=== PATIENT | female | born 1985 | race Caucasian/White ===

== ENCOUNTER 2020-05-19 14:54 | Emergency (ER) | payer SELFPAY ==
[2020-05-19 14:55] VITALS: BP 146/82; PULSE 85; RESP 16; TEMP 37; O2SAT 100; BMI 29.7
--- NOTE | 2020-05-19 15:14 | EKG12_ITS ---
Test Reason : CP Blood Pressure : / mmHG Vent. Rate : 078 BPM Atrial Rate : 078 BPM P-R Int : 164 ms QRS Dur : 082 ms QT Int : 366 ms P-R-T Axes : -04 029 019 degrees QTc Int : 417 ms Normal sinus rhythm Low voltage QRS Borderline ECG Confirmed by MARISOL DONOVAN, JUDE ([id number]), editor map MAGY LOPEZ ([id number]) on 05/20/2020 2:05:37 PM Referred By: BRY Confirmed By:JUDE DAMON MD
--- NOTE | 2020-05-19 15:14 | ED.VIS.CHEST ---
History of Present Illness Chief Complaint: Chest Pain Informant: Patient Onset: Yesterday Timing: Intermittent Quality: Sharp, Stabbing Location: Substernal Worsened By: Nothing Relieved By: Nothing Associated Symptoms: Palpitations, - - sweating, feeling hot Narrative: Is a 34-year-old female that denies any past medical history presenting with chest pain. Patient states about 30 minutes prior to arrival she was sitting in her house when suddenly she felt that her heart was fluttering and had associated chest pain. She states it felt there was a hot knife that was going to her sternum and rating to her back. She states the episode lasted for about 10 to 15 minutes but the fluttering only lasted for 1 to 2 minutes. Is symptoms have completely resolved. She noticed when this was going on she felt hot and her palms were sweating and she did not feel right. She states that she started a little bit of short of breath yesterday and just feels like she cannot get out full breath. She denies any associated cough or fever. She denies any upper respiratory symptoms. States she had a mild similar episode last night but it was not as severe. Patient states she had anxiety attacks in the past but this feels different. She denies any asymmetric swelling of her legs. She is not on any estrogen supplements or control. She denies any history of DVT or PE. She denies any sick contacts. She denies any GI or symptoms. No other complaints at this time. Prior Similar Symptoms: No PE Risk Factors: Negative for: Recent Travel/Surgery, Recenet Immobilization, Prior DVT or PE, Cancer, OCP + Smoking + >/=35 Past Medical History - Allergies and Home Meds Allergies/Adverse Reactions: Allergies cod liver oil [From Desitin] Adverse Reaction (Verified 05/19/20 14:58) Swelling morphine Adverse Reaction (Verified 05/19/20 14:58) Rash zinc oxide [From Desitin] Adverse Reaction (Verified 05/19/20 14:58) Swelling DESITIN Allergy (Severe, Uncoded 05/19/20 14:58) Swelling Primary Care Physician: Jose Daniel Rodriguez MD [[facility]] - Past Medical History: None Surgical History: no surgical history Smoking Status: Current every day smoker Review of Systems General: Reports: Sweats. Denies: Chills, Fever Eyes: Denies: Visual changes - bilaterally, Diplopia ENT: Denies: Rhinorrhea, Sore throat Cardiovascular: Reports: Chest pain, Palpitations, Heart racing Respiratory: Reports: Dyspnea. Denies: Cough, Dyspnea on exertion Gastrointestinal: Denies: Abdominal pain, Nausea, Vomiting, Diarrhea, Melena, Hematochezia Genitourinary: Denies: Dysuria, Hematuria, Frequency Musculoskeletal: Reports: Back pain. Denies: Extremity Pain Skin: Denies: Rash, Wounds Neurological: Denies: Headache, Weakness, Numbness Psych: Reports: Anxiety. Denies: Depression Physical Exam Vital Signs/Narrative: Vital Signs Temp Pulse Resp BP Pulse Ox 05/19/20 14:55 98.6 F 85 16 146/82 H 100 Inital Vital Signs reviewed: Yes General: Well nourished, Well developed, No Acute Distress Head: Normocephalic, Atraumatic Eyes: Perrl, EOMI ENT: Moist mucous membranes, No rhinorrhea Neck: Supple, Nontender Cardiovascular: Regular rate, Regular rhythm, No murmurs Respiratory: No distress, CTA bilaterally, Chest nontender Abdomen: Soft, Nontender, Nondistended, Normal bowel sounds Back: Nontender, Normal Inspection Extremities: Nontender, No edema Skin: Normal color, No rash Neurological: Alert, Oriented x3, Cranial nerves II-XII grossly intact, Normal Strength, Normal Sensation Psychological: Normal affect, Normal Mood Diagnostic/Tx/Re-eval Chest X-Ray - ED: 2 View, Read by ED Physician, Read by Radiologist, No Acute Disease Clinical Impression(s) from Imaging Studies Chest X-Ray 05/19/20 15:50 IMPRESSION: Normal x-ray examination of the chest. Electronically Signed: Isaac Anderson MD ([facility]) at 16:04 EST , Service support , Laboratory Data 05/19/20 05/19/20 05/19/20 16:30 16:30 17:15 WBC 7.0 RBC 4.60 Hgb 9.6 L Hct 32.6 L MCV 70.9 L MCH 20.9 L MCHC 29.4 L RDW Std Deviation 41.0 RDW Coeff of Rosa 16.1 H Plt Count 246 MPV 11.7 Immature Gran % (Auto) 0.300 Neut % (Auto) 64.3 Lymph % (Auto) 27.3 [place] % (Auto) 6.5 Eos % (Auto) 1.0 Baso % (Auto) 0.6 Absolute Neuts (auto) 4.5 Absolute Lymphs (auto) 1.92 Nucleated RBC % 0 Sodium 142 Potassium 3.7 Chloride 111 H Carbon Dioxide 25.0 Anion Gap 6 BUN 9 Creatinine 0.98 Estim Creat Clear Calc 93.34 Est GFR (MDRD) Af Amer 84 Est GFR (MDRD) Non-Af 69 BUN/Creatinine Ratio 9.2 L Glucose 79 Calcium 8.6 Magnesium 2.3 Troponin I < 0.015 TSH 1.74 Serum , Qual NEGATIVE - Rhythm Strip Rhythm Strip: Sinus Rhythm Rate: 78 Ectopy: None - EKG Initial EKG Interpretation: Sinus Rhythm, - - Normal sinus rhythm at a rate of 78 Normal intervals Normal axis Nonspecific T wave inversion in lead III - Medical Decision Making Patient evaluated for sudden onset of chest pain. She appears nontoxic in no acute distress. She is hemodynamically stable. Vital signs are normal. Patient is low risk for PE and I do not think D-dimer or further imaging is indicated per PE RC criteria. EKG does not show ACS and her troponin is negative. Given her sudden onset of symptoms I did offer delta troponin but patient states she needs to leave and does not want to stay. I have a low suspicion for ACS. I do wonder this is more associated with anxiety as she states she does have a history of anxiety. Chest x-rays not show any acute cardiopulmonary process. Lab work is remarkable for anemia however patient states she has known history of anemia. It is a microcytic anemia and she is given a prescription for iron supplements. TSH is normal. Patient not having signs of arrhythmia on her EKG or telemetry. She is currently asymptomatic and states has been feeling well since has been in the ER. Is low risk per heart score and stable for outpatient cardiac evaluation. She is referred to her primary care doctor as she does not currently have 1. Patient is counseled on signs and symptoms requiring return to the emergency room. Patient verbalizes agreement and understand this plan. Patient discharged home in stable and improved condition. ED Disposition - Plan for ED Patient: Disposition: Home or Assisted Living Diagnosis: Chest pain, Anemia Instructions: ED Anemia Type Not Specified, ED Chest Pain NonCardiac Prescriptions: Ferrous Sulfate [Iron] 325 mg PO BID #60 tab Prescription Printed Referrals: Jose Daniel Rodriguez MD [[facility]] - Additional Instructions: Your heart work-up was normal. You were found to be anemic. I am not sure why. I will start you on an iron supplements and please follow-up with primary care doctor for further evaluation of this. Please return if you have worsening symptoms.
--- NOTE | 2020-05-19 15:20 | NURSING ---
NO OLD EKGS
--- NOTE | 2020-05-19 15:50 | RAD_ITS ---
STUDY: X-RAY CHEST REASON FOR EXAM: Female, 34 years old. STERNAL CHEST PAIN . WORSENS WITH DEEP BREATH AND MOVEMENT TECHNIQUE: PA and lateral views of the chest. COMPARISON: None. FINDINGS: EKG leads project over the chest. The lungs are clear and expanded. There is no demonstrated pleural abnormality. Normal size heart. Normal mediastinum and reuben. Normal visualized pulmonary arteries. Normal visualized aortic arch and descending thoracic aorta. There is a dextroscoliosis of the thoracic spine. Normal visualized ribs, clavicles, and shoulders. There is no demonstrated abnormality of the visualized soft tissue structures of the upper abdomen. RAD/Chest PA and Lateral IMPRESSION: Normal x-ray examination of the chest. Electronically Signed: Isaac Anderson MD ([place]) at 16:04 EST , Service support ,
[2020-05-19] MEDS: Aspirin 81 MG TAB.CHEW 324 MG PO (16:39)
[2020-05-19 17:04] LABS: Internal QC Validated? YES +Cl - CLEAR BKGD; Pregnancy, Serum, hCG Quali. NEGATIVE Negative
[2020-05-19 17:31] LABS: Absolute Lymphocyte Count 1.92 X10^3/uL (0.83-4.51); Absolute Neutrophil Count 4.5 X10^3/uL (2.0-7.7); Basophil# 0.04 X10^3/uL; Basophil% 0.6 % (0-1); Eosinophil# 0.07 X10^3/uL; Hematocrit 32.6 % (37-47); Hemoglobin 9.6 g/dL (12.0-15.0); Lymphocyte # 1.92 X10^3/ul (4.0); Lymphocyte % 27.3 % (19-41); Mean Corp Hgb Conc 29.4 g/dL (32-36); Mean Corpuscular Hgb 20.9 pg (27.0-32.0); Mean Corpuscular Volume 70.9 fL (81-99); Mean Platelet Vol. 11.7 fl (6.2-12.0); Monocyte# 0.46 X10^3/uL; Monocyte% 6.5 % (0-10); NRBC Flagged by Analyzer 0 % (0-5); Neutrophil # 4.52 X10^3/uL (2.7-7.7); Neutrophil % 64.3 % (47-70); Platelet Count 246 K/mm3 (150-450); RBC Distribution Width CV 16.1 % (11.6-14.6)
[2020-05-19 17:32] LABS: Anion Gap 6 (5-15); BUN 9 mg/dL (7-18); BUN/Creat Ratio 9.2 RATIO (10-20); Calcium,Total 8.6 mg/dL (8.5-10.1); Chloride 111 mmol/L (98-107); Creatinine, Serum 0.98 mg/dL (0.55-1.02); EST Glomerular Filtration Rate 69 mL/min (>60); Est Glom Filt Rate - Afr Amer 84 mL/min (>60); Estimated Creatinine Clearance 93.34 ml/min; Glucose 79 mg/dL (74-106); Magnesium 2.3 mg/dL (1.6-2.6); Potassium 3.7 mmol/L (3.5-5.1); Sodium Level 142 mmol/L (136-145); Thyroid Stim Hormone (TSH) 1.74 uIU/mL (0.358-3.74)
[2020-05-19 19:13] VITALS: RESP 18
== END 2020-05-19 19:24 | disposition home or self-care (01) ==
PROVIDERS: Emergency Provider Emergency Medicine
DX: D50.9 Iron deficiency anemia, unspecified (principal); R07.2 Precordial pain; F17.200 Nicotine dependence, unspecified, uncomplicated
CPT/HCPCS: 71046; 80048; 83735; 84443; 84484; 84703; 85025; 93005; 99285; A4216

== ENCOUNTER → 2021-04-30 09:58 | Outpatient (CLI) | payer OTHER, SELFPAY ==
--- NOTE | 2021-04-30 10:04 | US_ITS ---
STUDY: ULTRASOUND TRANSVAGINAL CLINICAL: Female, 35 years old. aub heavy and painful menses TECHNIQUE: Transvaginal COMPARISON: None. FINDINGS: Normal uterine size measuring 7.2 x 6.2 x 4.0 cm in maximal craniocaudal dimension. There are no myometrial masses. Hyperechoic endometrium with thickness measuring 15 mm. There is a 0.7 x 0.7 x 0.9 cm hypoechoic focus in the endometrium. Normal uterine cervix. Nabothian cyst. Normal right ovary, measuring 3.3 x 3 x 1.8 cm. There are multiple follicles without a dominant cyst. Normal left ovary, measuring 3.3 x 2.9 x 1.8 cm. There are multiple follicles without a dominant cyst. There is mild free fluid in the cul-de-sac. Polycystic ovary disease: No. US/Transvaginal Non- IMPRESSION: 9 mm hypoechoic focus in the endometrium. Correlate with urine test. Electronically Signed: Robert Morrow MD at 6:00 EDT Tel , Service support ,
[2021-04-30 12:09] LABS: Erythrocyte Sedimentation Rate 18 mm/hr (0-30)
[2021-04-30 12:16] LABS: Absolute Lymphocyte Count 1.55 X10^3/uL (0.83-4.51); Absolute Neutrophil Count 5.2 X10^3/uL (2.0-7.7); Basophil# 0.04 X10^3/uL; Basophil% 0.5 % (0-1); Eosinophil# 0.07 X10^3/uL; Eosinophils% 0.9 % (0-5); Hematocrit 33.4 % (37-47); Hemoglobin 9.4 g/dL (12.0-15.0); Lymphocyte # 1.55 X10^3/ul (0.83-4.51); Lymphocyte % 20.9 % (19-41); Mean Corp Hgb Conc 28.1 g/dL (32-36); Mean Corpuscular Hgb 19.2 pg (27.0-32.0); Mean Corpuscular Volume 68.3 fL (81-99); Mean Platelet Vol. 11.3 fl (6.2-12.0); Monocyte# 0.49 X10^3/uL; Monocyte% 6.6 % (0-10); NRBC Flagged by Analyzer 0 % (0-5); Neutrophil # 5.22 X10^3/uL (2.7-7.7); Neutrophil % 70.7 % (47-70); Platelet Count 289 K/mm3 (150-450); RBC Distribution Width CV 18.8 % (11.6-14.6); Red Blood Count 4.89 M/mm3 (4.2-5.4); White Blood Count 7.4 K/mm3 (4.4-11.0)
[2021-04-30 12:43] LABS: AST(SGOT) 13 U/L (15-37); Alanine Aminotransfer ALT/SGPT 18 U/L (13-56); Albumin, Serum 3.7 g/dL (3.2-5.0); Alkaline Phosphatase 57 U/L (45-117); Anion Gap 6 (5-15); BUN 11 mg/dL (7-18); BUN/Creat Ratio 11.7 RATIO (10-20); Calcium,Total 8.5 mg/dL (8.5-10.1); Chloride 108 mmol/L (98-107); Cholesterol 141 mg/dL (200); Creatinine, Serum 0.94 mg/dL (0.55-1.02); EST Glomerular Filtration Rate 72 mL/min (>60); Est Glom Filt Rate - Afr Amer 87 mL/min (>60); Globulin 3.7 g/dL (2.2-4.2); Glucose 85 mg/dL (74-106); High Density Lipoprotein 49 mg/dL; Potassium 3.6 mmol/L (3.5-5.1); Protein, Total 7.4 g/dL (6.4-8.2); Sodium Level 138 mmol/L (136-145); T4 Free Direct 1.05 ng/dL (0.76-1.46); Thyroid Stim Hormone (TSH) 2.82 uIU/mL (0.358-3.74); Triglycerides 92 mg/dL; Very Low Density Lipoprotein 18 mg/dL (5-40)
[2021-05-01 15:20] LABS: H. Pylori Antibody (IgG) 0.47 (0.00-0.79); Thyroid Peroxidase AB 15 IU/mL (0-34)
== END ==
PROVIDERS: Referring Provider Nurse Practitioner Adult Health; Visit Provider Nurse Practitioner Adult Health
DX: N94.6 Dysmenorrhea, unspecified (principal); G43.109 Migraine with aura, not intractable, without status migrainosus
CPT/HCPCS: 36415; 76830; 80053; 80061; 84439; 84443; 85025; 85652; 86376; 86677

== ENCOUNTER → 2021-05-06 14:25 | Outpatient (CLI) | payer OTHER, SELFPAY ==
[2021-05-06 15:25] LABS: Internal QC Validated? YES +Cl - CLEAR BKGD; Pregnancy, Urine Negative Negative
[2021-05-06 16:08] LABS: hCG Titer Quant., Serum < 1 mIU/mL (1-3)
== END ==
PROVIDERS: Referring Provider Nurse Practitioner Adult Health; Visit Provider Nurse Practitioner Adult Health
DX: N94.6 Dysmenorrhea, unspecified (principal); N96 Recurrent pregnancy loss; N83.299 Other ovarian cyst, unspecified side
CPT/HCPCS: 36415; 81025; 84702

== ENCOUNTER → 2021-05-13 15:31 | Outpatient (CLI) | payer OTHER, SELFPAY ==
[2021-05-13 16:38] LABS: Vitamin B12 502 pg/mL (211-911)
[2021-05-13 16:47] LABS: Iron 11 ug/dL (50-170); Iron Binding Capacity,Total 404 ug/dL (250-450)
[2021-05-15 15:31] LABS: Transferrin 322 mg/dL (192-364)
[2021-05-16 09:09] LABS: Chlamydia By Nucleic Acid AMP Negative (Negative)
[2021-05-16 13:34] LABS: Gonococcus By Nucleic Acid AMP Negative (Negative)
[2021-05-16 22:57] LABS: HPV APTIMA, High Risk Negative (Negative)
== END ==
PROVIDERS: Nurse Practitioner Women's Health; Referring Provider Nurse Practitioner Adult Health; Visit Provider Nurse Practitioner Adult Health
DX: D64.9 Anemia, unspecified (principal); Z01.419 Encounter for gynecological examination (general) (routine) without abnormal findings; Z11.3 Encounter for screening for infections with a predominantly sexual mode of transmission
CPT/HCPCS: 36415; 82306; 82607; 82746; 83540; 83550; 84466; 87491; 87591; 87624; 88175; G0145

== ENCOUNTER → 2021-06-24 12:55 | Outpatient (CLI) | payer OTHER, SELFPAY ==
--- NOTE | 2021-06-24 13:02 | US_ITS ---
STUDY: ULTRASOUND OF THE FEMALE PELVIS - COMPLETE REASON FOR EXAM: Female, 35 years old. abn uterine bleeding LMP: 06/06/2021. TECHNIQUE: Transabdominal and Transvaginal TECHNICAL QUALITY: Adequate. COMPARISON: None. FINDINGS: The uterus is anteverted and is in a midline position. The uterus measures 7.3 cm x 4.8 cm x 3.9 cm. Normal uterine cervix. The endometrium measures 7 mm in thickness, and is hyperechoic. There is no demonstrated endometrial mass. There is a 1.1 cm x 0.9 cm x 0.8 cm subendometrial fibroid. I.U.D. - The patient does not have an I.U.D. The right ovary is visualized. The right ovary measures 2.8 cm x 2.2 cm x 1.4 cm. There is no right ovarian cyst or ovarian mass. There is no visualized right adnexal mass or complex lesion. There is normal arterial and normal venous vascularity. The left ovary is visualized. The left ovary measures 3.7 cm x 3.3 cm x 1.5 cm. There is a 1.6 cm x 1 cm x 1.3 cm dominant follicle in the left ovary. There is no visualized left adnexal mass or complex lesion. There is normal arterial and normal venous vascularity. There is no fluid in the cul-de-sac. The pre void volume of the bladder was 260 ml. US/Transvaginal Non- IMPRESSION: Small subendometrial fibroid. Electronically Signed: Zackery Calderón MD at 14:39 EST , Service support ,
--- NOTE | 2021-06-24 13:02 | US_ITS ---
STUDY: ULTRASOUND OF THE FEMALE PELVIS - COMPLETE REASON FOR EXAM: Female, 35 years old. abn uterine bleeding LMP: 06/06/2021. TECHNIQUE: Transabdominal and Transvaginal TECHNICAL QUALITY: Adequate. COMPARISON: None. FINDINGS: The uterus is anteverted and is in a midline position. The uterus measures 7.3 cm x 4.8 cm x 3.9 cm. Normal uterine cervix. The endometrium measures 7 mm in thickness, and is hyperechoic. There is no demonstrated endometrial mass. There is a 1.1 cm x 0.9 cm x 0.8 cm subendometrial fibroid. I.U.D. - The patient does not have an I.U.D. The right ovary is visualized. The right ovary measures 2.8 cm x 2.2 cm x 1.4 cm. There is no right ovarian cyst or ovarian mass. There is no visualized right adnexal mass or complex lesion. There is normal arterial and normal venous vascularity. The left ovary is visualized. The left ovary measures 3.7 cm x 3.3 cm x 1.5 cm. There is a 1.6 cm x 1 cm x 1.3 cm dominant follicle in the left ovary. There is no visualized left adnexal mass or complex lesion. There is normal arterial and normal venous vascularity. There is no fluid in the cul-de-sac. The pre void volume of the bladder was 260 ml. US/Pelvic (Non ) IMPRESSION: Small subendometrial fibroid. Electronically Signed: Zackery Calderón MD at 14:39 EST , Service support ,
== END ==
PROVIDERS: Visit Provider Nurse Practitioner Women's Health
DX: N93.9 Abnormal uterine and vaginal bleeding, unspecified (principal)
CPT/HCPCS: 76830; 76856

== ENCOUNTER 2021-08-19 10:02 | Outpatient (CLI) | payer OTHER, SELFPAY ==
[2021-08-19 10:16] LABS: Absolute Lymphocyte Count 1.97 X10^3/uL (0.83-4.51); Absolute Neutrophil Count 5.4 X10^3/uL (2.0-7.7); Basophil# 0.04 X10^3/uL; Basophil% 0.5 % (0-1); Eosinophil# 0.14 X10^3/uL; Eosinophils% 1.7 % (0-5); Hematocrit 35.8 % (37-47); Hemoglobin 11.5 g/dL (12.0-15.0); Lymphocyte # 1.97 X10^3/ul (0.83-4.51); Mean Corp Hgb Conc 32.1 g/dL (32-36); Mean Corpuscular Hgb 23.5 pg (27.0-32.0); Mean Corpuscular Volume 73.2 fL (81-99); Mean Platelet Vol. 11.3 fl (6.2-12.0); Monocyte# 0.64 X10^3/uL; Monocyte% 7.8 % (0-10); NRBC Flagged by Analyzer 0 % (0-5); Neutrophil # 5.39 X10^3/uL (2.7-7.7); Neutrophil % 65.6 % (47-70); Platelet Count 303 K/mm3 (150-450); RBC Distribution Width CV 17.8 % (11.6-14.6); RBC Distribution Width SD 47.2 fl (35.1-43.9); Red Blood Count 4.89 M/mm3 (4.2-5.4); White Blood Count 8.2 K/mm3 (4.4-11.0)
== END 2021-08-19 23:59 | disposition home or self-care (01) ==
LOC: PAVLAB 10:03
PROVIDERS: Referring Provider Obstetrics & Gynecology; Visit Provider Obstetrics & Gynecology
DX: N93.9 Abnormal uterine and vaginal bleeding, unspecified (principal)
CPT/HCPCS: 36415; 85025

== ENCOUNTER 2021-09-09 13:44 | Day surgery (SDC) | payer OTHER, SELFPAY ==
--- NOTE | 2021-09-08 17:24 | PCM.HP.BLA ---
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 Allergies cod liver oil [From Desitin] Adverse Reaction (Verified 07/10/21 10:55) Swelling morphine Adverse Reaction (Verified 07/10/21 10:55) Rash zinc oxide [From Desitin] Adverse Reaction (Verified 07/10/21 10:55) Swelling DESITIN Allergy (Severe, Uncoded 05/13/21 14:37) Swelling Medications ferrous sulfate 325 mg PO BID #60 tab 05/19/20 [Rx Confirmed 07/10/21] ibuprofen 200 mg capsule 200 mg PO Q6H PRN 05/13/21 [History Confirmed 07/10/21] naproxen sodium 220 mg capsule 220 mg PO BID PRN 05/13/21 [History Confirmed 07/10/21] norethindrone acetate 5 mg tablet 5 mg PO .COMPLEX #30 tab 07/10/21 [Rx Confirmed 07/10/21] Is last menstrual period known: Yes Post menopausal: No Patient : No : [facility] Medical History (Updated 07/10/21 @ 11:[address] Chatnel Molina MD) Abnormal uterine bleeding (AUB) Anemia Migraines Ovarian cyst Scoliosis Family History Mother Cervical cancer Parathyroid abnormality Hyperlipidemia Father Heart disease Gout Grandfather Lung disease Heart disease Social History household members: family current occupational status: employed current occupation: [employer] history of recent travel: Yes sexually active: No Smoking Status: Current every day smoker alcohol intake: current alcohol intake frequency: holidays/special occasions only substance use type: does not use what type of physical activity do you participate in: walking frequency: 5-6 times per week seatbelt use: always do you feel safe at home: Yes additional social history: HPI US FU/possible preop Details: YENY DOW is a 35 year old who presents for heavy menses. she is having incrasingly heavy periods lasting 7-10 days. On ultrasound she has a submucosal fibroid. she is wanting to maintain fertility. Female Reproductive History Menopausal Symptoms: No night sweats Pregancy History 2 Elective abortions Hx Para Spontaneous abortions 2 Hx # Term Pregnancies Ectopic pregnancies Hx # Pregnancies Multiple births # of living children 0 ROS Const Constitutional: Denies night sweats, weight gain or weight loss ENT ENT: Reports system reviewed and no additional complaints, except as documented Cardio Card: Denies chest pain Resp Resp: Denies cough or dyspnea GI GI: Reports as per HPI and nausea; Denies abdominal pain, constipation or vomiting : Denies nipple discharge, urinary frequency, urinary incontinence, urinary hesitancy, urinary urgency, vaginal discharge, vaginal dryness, vaginal odor or vaginal pruritus Musc Musc: Denies arthralgias, back pain or muscle weakness Skin Skin/Breast: Denies alopecia, change in hair, dry skin, breast mass, breast pain, breast skin changes or nipple discharge Neuro Neuro: Reports system reviewed and no additional complaints, except as documented Psych Psych: Reports system reviewed and no additional complaints, except as documented Endo Endo: Denies cold intolerance, excessive sweating, heat intolerance or polydipsia Fadi/Lymph Hematologic/Lymphatic: Denies easy bleeding, Denies easy bruising and Denies lymphadenopathy Exam Const General: cooperative, healthy appearing, comfortable, no acute distress and well developed Orientation: alert [facility] Head: normal to inspection and normocephalic Ears: hearing grossly normal bilaterally and external ears normal Nose: external nose normal and nares normal Face and sinus: normal facial exam Neck Neck: normal visual inspection and no lymphadenopathy Thyroid: thyroid normal Chest Chest palpation & inspection: normal inspection of the chest Resp Effort & Inspection: normal respiratory effort Auscultation: clear to auscultation bilaterally GI Inspection: normal to inspection and non-distended Palpation: soft and no hepatosplenomegaly Musc Other: gross motor intact no deficits, full bilateral strength Skin General: no rashes or lesions noted Neuro General: patient alert, patient awake, moves all extremities and no focal motor deficits Motor: muscle tone normal throughout Extrem General: normal to inspection and no pedal edema Psych Appearance: grossly normal Mental Status: mental status grossly normal Affect: normal affect Speech and Movement: speech and movement normal Coding Level of Care Code Off vis,est,level 4 Diagnoses Abnormal uterine bleeding (AUB) N93.9 Assessment and Plan Assessment and Plan (1) Abnormal uterine bleeding (AUB): Status: Acute Comment: aygestin script until surgery for d and c hysterosocpy symphion Plan - Dr. Chantel Molina MD: After discussing the patient's diagnosis and treatment plan options, patient wishes to proceed with surgical management. I have discussed with the patient the risks, benefits, and alternatives of the procedure which include but are not limited to risks of anesthesia, bleeding, infection, possible damage to bowel, bladder, or surrounding vasculature which could lead to additional surgery to evaluate any complications. Patient agrees to procedure and wishes to proceed. ACOG/uptodate references given for additional information regarding procedure. Plan Details Other Medications: New: norethindrone acetate (Aygestin) 5 mg PO BID x 3 days and then once daily for remainder 30 tabs 0RF UPDATE- I have seen the patient and performed any clinically relevant updates to the history and physical exam. Chantel Molina MD
[2021-09-09 14:20] LABS: Internal QC Validated? YES +Cl - CLEAR BKGD; Pregnancy, Urine Negative Negative
[2021-09-09 14:27] VITALS: BP 128/72; PULSE 71; RESP 16; TEMP 37.1; O2SAT 97; BMI 27.5
[2021-09-09] MEDS: Lactated Ringers 1,000 ML 125 ML IV (15:00)
--- NOTE | 2021-09-09 15:40 | EMB_PTH ---
PATIENT: YENY DOW LOC: [facility] [place] U#:[id number] AGE/SX: 36/F ROOM: RE09/09/[address]: Dr. Chantel Molina MD : [id number] BED: DIS: 09/09/2021 SPEC #: [id number] RECD: 09/10/21 08:34 STATUS: JEN GALEANO #: [id number] NESHA: 09/09/21 15:[address]: Chantel Molina DEPT: SURGICAL PATHOLOGY RECD BY: Susan Silverman ENTERED: 09/10/21 09:08 SP TYPE: ENDOM BX/C MELO DR: [facility] Tissues: Endometrium, NOS Procedures: Surgery Specimen Level IV HEADER OPERATION: Hysteroscopy, myomectomy, Symphion D & C PRE-OP DIAGNOSIS: Abnormal uterine bleeding TISSUE SUBMITTED: Endometrium and fibroid MICROSCOPIC DIAGNOSIS Endometrium and fibroid, biopsy: Transition endometrium with minimal disorder. Fragments of benign endocervix with squamous metaplasia. Benign fragments of myometrial tissue with focal changes suspicious for adenomyosis. AM:sally 09/11/2021 MICROSCOPIC DESCRIPTION Slides are reviewed. GROSS DESCRIPTION Received in fixative is one container labeled with the patient's name and designated endometrium and fibroid. The specimen consists of multiple irregular fragments of martini soft tissue that in aggregate measure 7.5 x 3 x 0.3 cm. The specimen is totally submitted in three cassettes. / SJ:sally 09/10/2021 TC:5 CPT: 84843
--- NOTE | 2021-09-09 16:18 | PCM.OPRPT ---
Problems Associated Problem List Diagnoses (1) Abnormal uterine bleeding (AUB): Report of Operation Date of Procedure: 09/09/21 Pre-Operative Diagnosis: see problem list Post-Operative Diagnosis: same Surgery/Procedure Performed:: D&C hysteroscopy myomectomy using symphion clean up helper banquet: None Type of Anesthesia: Local MAC Special Medications: none Specimen's removed: EMC, polyp Drains: none Estimated Blood Loss (mL): 50 Fluids Replaced: crystalloid Description of Procedure: Patient was prepped and draped in a normal sterile fashion under MAC anesthesia. A weighted speculum was placed in the vagina and the anterior lip of the cervix was grasped with a single-tooth tenaculum. A paracervical block was placed with 1% lidocaine. Cervix was progressively dilated to allow passage of a 5 mm hysteroscope. The lining was fully visualized and noted to have an anterior subendometrial fibroid . Uterine sounded to 7 cm. Using the symphion device, the fibroid was progressively removed without complications. Direct visual curettage was performed using the device , and all specimens were sent to pathology. All instruments were removed from the vagina and excellent hemostasis was noted. Patient was awoken and taken to recovery in stable condition. Grafts/Implants Used: none Complications none Admit VTE Documentation VTE Present on Admission: No VTE Mechan Device Prophylaxis: SCD's Multi Select Codes Urinary/Genital Urinary/Genital CPT Codes: 09812 Hysteroscopic myomectomy
--- NOTE | 2021-09-09 16:19 | DCINST_ITS ---
Discharge Instructions Procedure D&C Diet Discharge Diet: No restrictions Activity Discharge Activity: Return to Normal Activity, May Shower and May Take a Tub Bath (after 1 week) May resume sexual activity in: 1-2 weeks Weight Bearing Status: Weight bearing as tolerated Lifting Restrictions: none Dressing / Incision Call your doctor if you observe: Fever of 101 or Higher, Using more than 1 pad per hour, Shortness of breath and Uncontrolled pain Follow Up Care Please Follow Up With: Chantel Molina MD When: Call [phone] to schedule appointment. Test Results: Test results from this visit will be discussed in further detail at your follow-up appointment, if applicable. Discharge Plan Admission Primary Reason for Your Visit: hysteroscopic myomectomy Attending Provider: Chantel Molina [facility] Orders/Prescriptions Prescriptions: New naproxen 250 MG tablet 250 - 500 mg PO Q8H PRN PRN (Reason: MILD PAIN) Qty: 30 RF: 1 No Action ergocalciferol (vitamin D2) 1,250 mcg (50,000 unit) capsule 1,250 mcg PO QWEEK RF: 0 ferrous sulfate 325 MG tablet 325 mg PO BID Qty: 60 RF: 0 norethindrone acetate [Aygestin] 5 mg tablet 5 mg PO .COMPLEX Qty: 30 RF: 0 [facility] - Disposition Disposition (needs filled in before D/C Order can be placed): Home, Self Care
[2021-09-09 16:25] VITALS: BP 128/72; BP 131/87; PULSE 95; RESP 16; TEMP 37; O2SAT 99
[2021-09-09 16:30] VITALS: BP 119/97; BP 128/72; PULSE 112; RESP 16; O2SAT 99
[2021-09-09 16:35] VITALS: BP 128/72; BP 131/87; PULSE 112; RESP 16; O2SAT 100
[2021-09-09 16:40] VITALS: BP 126/91; BP 128/72; PULSE 89; RESP 16; TEMP 36.8; O2SAT 100
[2021-09-09 17:33] VITALS: BP 128/72; BP 133/92; PULSE 88; RESP 16; TEMP 36.7; O2SAT 100
== END 2021-09-09 23:59 | disposition home or self-care (01) ==
LOC: SDC 13:46 → AC 13:47
PROVIDERS: Anesthesiology; Referring Provider Obstetrics & Gynecology; Visit Provider Obstetrics & Gynecology
PROC: 0UB98ZZ Excision of Uterus, Via Natural or Artificial Opening Endoscopic (ICD-10-PCS; CPT 58558; principal; 2021-09-09 15:25)
DX: D25.9 Leiomyoma of uterus, unspecified (principal); N93.9 Abnormal uterine and vaginal bleeding, unspecified; F17.200 Nicotine dependence, unspecified, uncomplicated; M41.9 Scoliosis, unspecified; D64.9 Anemia, unspecified; Z79.899 Other long term (current) drug therapy; J45.909 Unspecified asthma, uncomplicated
CPT/HCPCS: 58561; 81025; 86850; 86900; 86901; 88305; J7120; J2405

== ENCOUNTER → 2022-05-25 | Outpatient (CLI) | payer BC, SELFPAY ==
--- NOTE | 2022-05-25 18:25 | US_ITS ---
INDICATION: DYSMENORRHEA EXAMINATION: Ultrasound US Transvaginal Non-OB TECHNIQUE: Transvaginal (for optimal evaluation of the adnexa) pelvic ultrasound was performed. Grayscale, spectral waveform, and color flow Doppler evaluation of the adnexa. COMPARISON: None. FINDINGS: UTERUS: Anteverted. The uterus measures 7.8 x 5.4 x 2.9 cm. There is no uterine mass. The endometrial stripe measures 10 mm in AP diameter which is within normal limits. RIGHT OVARY: Measures 2.2 x 2.2 x 1.9 cm. Non-enlarged, normal echogenicity. There is normal arterial inflow and venous outflow present in the right ovary. LEFT OVARY: Measures 2.1 x 2.1 x 2.4 cm. Non-enlarged, normal echogenicity. There is normal arterial inflow and venous outflow present in the left ovary. FREE FLUID: None. US/Transvaginal Non- IMPRESSION: Normal pelvic ultrasound. Electronically Signed: Noel Ocampo MD at 21:52 EST ,
== END | disposition home or self-care (01) ==
LOC: US 18:23
PROVIDERS: Referring Provider Nurse Practitioner Women's Health; Visit Provider Nurse Practitioner Women's Health
DX: N94.6 Dysmenorrhea, unspecified (principal)
CPT/HCPCS: 76830

== ENCOUNTER 2022-05-29 15:58 | Emergency (ER) | payer BC, SELFPAY ==
[2022-05-29 15:59] VITALS: BP 123/82; PULSE 70; RESP 14; TEMP 36.2; O2SAT 99; BMI 28.8
--- NOTE | 2022-05-29 16:13 | EX.ED.VIS.HA ---
HPI History of Present Illness Chief Complaint: Headache Detail of Chief Complaint: Headache that started around 3:20 PM Informant: patient Narrative Narrative: Patient presents the emergency department with complaint of a headache that started around 320. Patient states that initially she developed an aura where she had a loss central vision in both eyes that over time expanded and then resolved after about 40 minutes. Patient typically does get an aura before her headaches. Patient states that she normally takes sumatriptan when her headaches come on but she was at work and her medicine was at home so she comes into the ED to get the migraine cocktail. Patient does complain of photophobia. She denies nausea or vomiting. Patient states the headache is involving mostly the right side of her head and is throbbing. Patient currently rates it a 6 out of 10. PFSH PFSH Medical History Abnormal uterine bleeding (AUB) Anemia Asthma Bipolar disorder Chest pain History of edema History of irregular heartbeat History of ulceration Injury of back Loose, teeth Migraines Ovarian cyst Scoliosis Shortness of breath on exertion Smoker Home Medications ergocalciferol (vitamin D2) 1,250 mcg (50,000 unit) capsule 1,250 mcg PO QWEEK 08/19/21 [History Last Taken Unknown] aripiprazole 5 mg tablet (Abilify) 5 mg PO DAILY 09/22/21 [History Last Taken Unknown] naproxen sodium 220 mg capsule (Aleve) 220 mg PO BID PRN 09/22/21 [History Last Taken Unknown] propranolol 10 mg tablet 10 mg PO ONCE PRN 09/22/21 [History Last Taken Unknown] Allergy/AdvReac Type Severity Reaction Status Date / Time cod liver oil [From Desitin] AdvReac Swelling Verified 05/29/22 15:59 morphine AdvReac Rash Verified 05/29/22 15:59 zinc oxide [From Desitin] AdvReac Swelling Verified 05/29/22 15:59 DESITIN Allergy Severe Swelling Uncoded 05/29/22 15:59 Family History Mother Cervical cancer Parathyroid abnormality Hyperlipidemia Father Heart disease Gout Grandfather Lung disease Heart disease Surgical History H/O dilation and curettage Social History household members: family current occupational status: employed current occupation: [employer] history of recent travel: Yes sexually active: No Smoking Status: Current every day smoker tobacco type: cigarettes alcohol intake: current alcohol intake frequency: holidays/special occasions only substance use type: does not use what type of physical activity do you participate in: walking frequency: 5-6 times per week seatbelt use: always do you feel safe at home: Yes additional social history: ROS ROS ED Review of Systems ROS Unobtainable: other Constitutional Constitutional ED: Reports lethargy; Denies chills, fever(s), sweats or weight loss Eyes Eyes: Denies blurry vision, change in vision or diplopia ENT ENT ED: Reports other Details: Photophobia ; Denies rhinorrhea or sore throat Cardiovascular Cardiovascular: Denies chest pain, orthopnea or racing heartbeat Respiratory/Chest Respiratory/Chest: Denies cough, dyspnea, dyspnea on exertion, orthopnea or sputum Gastrointestinal Gastrointestinal: Denies abdominal pain, diarrhea, nausea or vomiting Genitourinary Genitourinary ED: Denies dysuria, hematuria or urinary frequency Musculoskeletal Musculoskeletal: Denies arthralgias, back pain, myalgias or neck pain Integumentary Denies abscess, Abrasions or rash Neurologic Neurologic: Reports headache(s); Denies weakness Psychiatric Psychiatric: Denies anxiety, depression or suicidal thoughts Endocrine Endocrinology: Denies polydipsia, polyphagia or polyuria Hematologic/Lymphatic Hematologic/Lymphatic: Denies easy bleeding, easy bruising or lymphadenopathy Allergic/Immunologic Allergic/Immunologic ED: Denies mouth swelling, tongue swelling or urticaria EXAM Physical Exam Const Vital Signs: 05/29/22 15:59 Temperature 97.1 F L Temperature Source Temporal Pulse Rate 70 Respiratory Rate 14 Blood Pressure 123/82 H Blood Pressure Mean 95 Pulse Ox 99 Oxygen Delivery Method Room Air Positive well nourished and well developed General Appearance ED: well developed and NAD HEENT Reports TM's clear and moist mucous membranes normocephalic and atraumatic; Negative for trauma or tenderness Tympanic Membrane ED: Yes TM's clear Eyes PERRL and EOMs intact bilaterally General Eye ED: Negative for pale conjunctiva or scleral icterus Neck no lymphadenopathy, supple and no JVD General: Negative for tenderness Chest Wall inspection of chest normal and palpation of chest normal Chest: Negative for tenderness Resp normal respiratory effort and clear to auscultation bilaterally Effort and Inspection: Negative for respiratory distress or pain with movement Auscultation: Negative for rhonchi, wheezes or diminished lung sounds Cardio regular rate, regular rhythm, S1 normal heart sound, S2 normal heart sound and no murmurs Peripheral Pulses: pulses 2+ throughout GI normal to inspection, nondistended, normoactive bowel sounds, soft to palpation, non-tender, non-distended and no masses Back/Spine no CVA tenderness and no thoracic nor lumbar tenderness Extremity normal to inspection General Extremety ED: Negative for edema General Extremity: Negative for edema Neuro oriented x3, CN's II-XII intact bilaterally, no sensory deficits noted and gait normal Neuro Narrative: Finger-nose and heel odell testing within normal limits, negative Romberg, negative pronator drift, fundi benign Sensorium / Orientation: awake, alert, oriented to person, oriented to place and oriented to time Motor Exam: strength 5/5 throughout and strength abnormal Psych mental status grossly normal Skin no rashes or lesions noted and no wounds MDM MDM MDM Narrative Medical decision making narrative: IV line established on arrival. Patient was given Reglan, Benadryl, and Toradol. Headache improved down to a 2 or 3 out of 10 and she feels significantly better. Patient will be discharged to home and advised to drink lots of fluids and rest. Patient to follow-up with her primary care physician as needed. Patient advised to return if worsening headache, difficulty with balance or speech or condition should worsen anyway. Discharge Plan Triage Chief Complaint: Headache ED Provider: Alexis Nice Dx/Rx/DC Orders Clinical Impression: Headache, migraine Instructions: ED, Migraine (Classical) Prescriptions: No Action aripiprazole [Abilify] 5 mg tablet 5 mg PO DAILY propranolol 10 mg tablet 10 mg PO ONCE PRN naproxen sodium [Aleve] 220 mg capsule 220 mg PO BID PRN ergocalciferol (vitamin D2) 1,250 mcg (50,000 unit) capsule 1,250 mcg PO QWEEK Primary Care Provider: [facility] Yamile Rosenberg Referrals: [facility] Yamile Rosenberg [Primary Care Provider] - As Needed Disposition Disposition: Home, Self Care
[2022-05-29] MEDS: 0.9% Normal Saline 1,000 ML 1000 ML IV (16:30)
[2022-05-29] MEDS: DiphenhydrAMINE 50 MG/ML Syringe 25 MG IV (16:31)
[2022-05-29] MEDS: Metoclopramide 10 MG/2 ML Vial IV (16:32)
[2022-05-29] MEDS: Ketorolac 30 MG/ML Syringe IV (16:32)
[2022-05-29 17:06] VITALS: BP 120/74; PULSE 67; RESP 16; O2SAT 100
== END 2022-05-29 17:12 | disposition home or self-care (01) ==
PROVIDERS: Emergency Provider Emergency Medicine; Visit Provider Emergency Medicine
DX: G43.909 Migraine, unspecified, not intractable, without status migrainosus (principal); F17.210 Nicotine dependence, cigarettes, uncomplicated; J45.909 Unspecified asthma, uncomplicated
CPT/HCPCS: 96361; 96374; 96375; 99282

== ENCOUNTER → 2022-06-17 | Outpatient (CLI) | payer BC, SELFPAY ==
[2022-06-17 09:43] LABS: Hematocrit 41.4 % (37-47); Hemoglobin 12.5 g/dL (12.0-15.0); Mean Corp Hgb Conc 30.2 g/dL (32-36); Mean Corpuscular Hgb 23.5 pg (27.0-32.0); Mean Platelet Vol. 12.1 fl (6.2-12.0); Platelet Count 227 K/mm3 (150-450); RBC Distribution Width CV 15.9 % (11.6-14.6); RBC Distribution Width SD 44.7 fl (35.1-43.9); Red Blood Count 5.31 M/mm3 (4.2-5.4); White Blood Count 7.6 K/mm3 (4.4-11.0)
[2022-06-17 10:13] LABS: Anion Gap 3 (5-15); BUN 12 mg/dL (7-18); BUN/Creat Ratio 12.3 RATIO (10-20); Calcium,Total 8.5 mg/dL (8.5-10.1); Chloride 109 mmol/L (98-107); Creatinine, Serum 0.98 mg/dL (0.55-1.02); EST Glomerular Filtration Rate 68 mL/min (>60); Est Glom Filt Rate - Afr Amer 83 mL/min (>60); Glucose 91 mg/dL (74-106); Iron 24 ug/dL (50-170); Iron Binding Capacity,Total 402 ug/dL (250-450); Potassium 3.9 mmol/L (3.5-5.1); Sodium Level 139 mmol/L (136-145); Thyroid Stim Hormone (TSH) 1.57 uIU/mL (0.358-3.74)
[2022-06-17 10:48] LABS: Hemoglobin A1c 5.5 % (3.8-5.6)
== END | disposition home or self-care (01) ==
LOC: LAB 09:24
PROVIDERS: Visit Provider Nurse Practitioner Family
DX: G43.109 Migraine with aura, not intractable, without status migrainosus (principal); D64.9 Anemia, unspecified; R73.9 Hyperglycemia, unspecified
CPT/HCPCS: 36415; 80048; 83036; 83540; 83550; 84443; 85027

== ENCOUNTER → 2022-07-16 | Outpatient (CLI) | payer BC, SELFPAY | END | disposition home or self-care (01) | LOC: PSN 09:12 | PROVIDERS: Referring Provider Nurse Practitioner Family; Visit Provider Nurse Practitioner Family | DX: R00.2 Palpitations (principal) | CPT/HCPCS: 93225; 93226 ==

== ENCOUNTER → 2022-08-21 | Outpatient (CLI) | payer SELFPAY ==
[2022-08-21 13:41] LABS: hCG Titer Quant., Serum < 1 mIU/mL (1-3)
== END | disposition home or self-care (01) ==
DX: R11.0 Nausea (principal)
CPT/HCPCS: 36415; 84702

== ENCOUNTER 2023-01-26 23:53 | Emergency (ER) | payer OTHER, SELFPAY ==
[2023-01-26 23:53] VITALS: BP 134/81; PULSE 73; RESP 16; TEMP 36.4; O2SAT 100; BMI 24.5
[2023-01-27 01:29] LABS: Anion Gap 6 (5-15); BUN 10 mg/dL (7-18); BUN/Creat Ratio 10.3 RATIO (10-20); Calcium,Total 8.6 mg/dL (8.5-10.1); Chloride 109 mmol/L (98-107); Creatinine, Serum 0.97 mg/dL (0.55-1.02); EST Glomerular Filtration Rate 69 mL/min (>60); Est Glom Filt Rate - Afr Amer 83 mL/min (>60); Estimated Creatinine Clearance 91.64 ml/min; Glucose 66 mg/dL (74-106); Potassium 3.4 mmol/L (3.5-5.1); Sodium Level 141 mmol/L (136-145)
--- NOTE | 2023-01-27 01:57 | EX.ED.DYSGE1 ---
HPI History of Present Illness Chief Complaint: Palpitations Detail of Chief Complaint: Potation's associated with left forearm pain Informant: patient Onset/Context/Timing Onset: Today Context: Sudden Onset Timing: Intermittent (Seconds) Quality: Tingling pain left forearm Location: Palpitations chest, flip but he flop Current Severity: Gone Maximum Severity: Moderate Worsened by: Nothing Relieved by: Nothing Associated Symptoms Associated Symptoms: Left forearm discomfort Narrative Narrative: Patient is a 37-year-old woman with history of palpitations. She had a Holter monitor placed when she was in [place]. She did not get the results because she was uninsured at the time and they could not give her results without payment. She presents with palpitations that lasted seconds. What concerned her was that she had shortness of breath and left arm numbness/discomfort. She had no other symptoms. She has no known history of cardiac disease. She does have history of anxiety and migraines. She denies history of hiatal hernia or reflux. She denies black or maroon-colored stool. She denies headache, visual, ocular auditory symptoms. She denied chest pain, pressure or tightness. She denied dyspnea on exertion. Prior similar symptoms: No (The arm discomfort was new and reason she) Recent Illness/Hospitalization: No PFSH PFSH Medical History Abnormal uterine bleeding (AUB) Anemia Anxiety Asthma Bipolar disorder Chest pain History of edema History of irregular heartbeat History of ulceration Injury of back Loose, teeth Migraines Ovarian cyst Scoliosis Shortness of breath on exertion Smoker Home Medications ergocalciferol (vitamin D2) 1,250 mcg (50,000 unit) capsule 1,250 mcg PO QWEEK 08/19/21 [History Last Taken Unknown] naproxen sodium 220 mg capsule (Aleve) 220 mg PO BID PRN pain 09/22/21 [History Last Taken Unknown] propranolol 10 mg tablet 10 mg PO ONCE 09/22/21 [History Last Taken Unknown] bupropion HCl 150 mg 24 hr tablet, extended release 150 mg PO DAILY 01/27/23 [History Last Taken Unknown] Allergy/AdvReac Type Severity Reaction Status Date / Time cod liver oil [From Desitin] AdvReac Swelling Verified 01/26/23 23:53 morphine AdvReac Rash Verified 01/26/23 23:53 zinc oxide [From Desitin] AdvReac Swelling Verified 01/26/23 23:53 Family History Mother Cervical cancer Parathyroid abnormality Hyperlipidemia Father Heart disease Gout Grandfather Lung disease Heart disease Surgical History H/O dilation and curettage Social History household members: family current occupational status: employed current occupation: [employer] history of recent travel: Yes sexually active: No Smoking Status: Current every day smoker tobacco type: cigarettes alcohol intake: current alcohol intake frequency: holidays/special occasions only substance use type: does not use what type of physical activity do you participate in: walking frequency: 5-6 times per week seatbelt use: always do you feel safe at home: Yes additional social history: ROS ROS ED Constitutional Constitutional ED: Denies chills, fever(s), subjective, sweats or weight loss Eyes Eyes: Denies blurry vision or change in vision ENT ENT ED: Denies ear pain, rhinorrhea or sore throat Cardiovascular Cardiovascular: Reports palpitations; Denies chest pain, orthopnea, paroxysmal nocturnal dyspnea or racing heartbeat Respiratory/Chest Respiratory/Chest: Denies cough, dyspnea, dyspnea on exertion, orthopnea or paroxysmal nocturnal dyspnea Gastrointestinal Gastrointestinal: Denies abdominal pain, nausea or vomiting Musculoskeletal Musculoskeletal: Reports other Details: Left forearm discomfort ; Denies arthralgias, back pain, myalgias or neck pain Neurologic Neurologic: Denies paresthesias or weakness Psychiatric Psychiatric: Reports anxiety and depression Hematologic/Lymphatic Hematologic/Lymphatic: Reports systems reviewed and no addt'l complaints, except as documented EXAM Physical Exam Const Vital Signs: 01/26/23 23:53 01/27/23 00:04 Temperature 97.6 F L Temperature Source Temporal Pulse Rate 73 Respiratory Rate 16 Respiratory Pattern Normal Blood Pressure 134/81 H Blood Pressure Mean 98 Pulse Ox 100 Positive well nourished and well developed General Appearance ED: well developed and NAD; Negative for cyanotic, diaphoretic or pallor HEENT Reports moist mucous membranes HEENT Narrative: Head is atraumatic normocephalic. Ears normal. Nares patent. Posterior pharynx normal. Eyes PERRL and EOMs intact bilaterally General Eye ED: Negative for pale conjunctiva or scleral icterus Neck no lymphadenopathy, supple and no JVD Chest Wall inspection of chest normal and palpation of chest normal Resp normal respiratory effort and clear to auscultation bilaterally Cardio regular rate, regular rhythm, S1 normal heart sound, S2 normal heart sound and no murmurs GI normal to inspection, nondistended, normoactive bowel sounds, non-tender, non-distended and no masses; Negative for hepatosplenomegaly Palpation: soft Back/Spine no CVA tenderness Extremity normal to inspection Extremity Narrative: There is no asymmetry, swelling, discoloration, leg vein distention, palpable cords or tenderness along the distribution of the deep venous system. Neuro oriented x3 and CN's II-XII intact bilaterally Sensorium / Orientation: alert Psych Mood & Affect: depressed Skin no rashes or lesions noted, no wounds and skin turgor normal General Skin Exam: Negative for jaundice or pallor MDM MDM MDM Narrative Medical decision making narrative: Patient is PERC negative. Patient's symptoms are not suggestive of anything. We will obtain basic metabolic panel to assess for significant hypokalemia potentially and would raise concern for premature ventricular beats. EKG was obtained per nurse protocol. EKG reveals a sinus rhythm rate of 69 with respiratory variance which is a normal variant. The EKG is normal. MN interval is under 54 ms. QRS duration is 80 ms. [place] is normal. Lab Data Labs: Laboratory Results - last 24 hr 01/27/23 01:05 Sodium 141 Potassium 3.4 L Chloride 109 H Carbon Dioxide 26.0 Anion Gap 6 BUN 10 Creatinine 0.97 Estim Creat Clear Calc 91.64 Est GFR (MDRD) Af Amer 83 Est GFR (MDRD) Non-Af 69 BUN/Creatinine Ratio 10.3 Glucose 66 L Calcium 8.6 Discharge Plan Triage Chief Complaint: Palpitations ED Provider: Sam Weathers Dx/Rx/DC Orders Clinical Impression: Heart palpitations, Forearm pain Instructions: ED Palpitations Prescriptions: No Action propranolol 10 mg tablet 10 mg PO ONCE naproxen sodium [Aleve] 220 mg capsule 220 mg PO BID PRN (Reason: pain) ergocalciferol (vitamin D2) 1,250 mcg (50,000 unit) capsule 1,250 mcg PO QWEEK bupropion HCl 150 mg tablet extended release 24 hr 150 mg PO DAILY Patient Comments: TAKE 1 TABLET BY MOUTH IN THE MORNING Primary Care Provider: RosaSara sanchez Referrals: Sara Rosa, [employer] [facility] [Primary Care Provider] - As Needed Disposition Disposition: Home, Self Care
[2023-01-27 02:22] VITALS: BP 99/54; PULSE 61; RESP 18; O2SAT 99
== END 2023-01-27 02:23 | disposition home or self-care (01) ==
PROVIDERS: Emergency Provider Emergency Medicine; PCP Nurse Practitioner Adult Health; Visit Provider Emergency Medicine
DX: R00.2 Palpitations (principal); F41.9 Anxiety disorder, unspecified; Z59.7 Insufficient social insurance and welfare support; F17.210 Nicotine dependence, cigarettes, uncomplicated; M79.632 Pain in left forearm; R06.02 Shortness of breath; R20.0 Anesthesia of skin; F32.A Depression, unspecified
CPT/HCPCS: 80048; 93005; 99283; A4216

== ENCOUNTER 2023-05-03 23:36 | Emergency (ER) | payer SELFPAY ==
[2023-05-03 23:36] VITALS: BP 121/84; PULSE 85; RESP 18; TEMP 35.8; O2SAT 100; BMI 24.3
[2023-05-04 01:01] LABS: Mucous, Urine 0 SEEN /hpf (<or=2+); Red Blood Cells-Urine 0 SEEN /hpf (0-5)
[2023-05-04 01:02] LABS: Color, Urine Yellow (Yellow); Glucose, Dipstick Normal (Normal); Ketone-Dipstick Negative (Negative); Leukocyte Esterase-Dipstick 25 /ul (Negative); Nitrite-Dipstick Negative (Negative); Occult Blood-Urine Negative /ul (Negative); Protein-Dipstick 15 mg/dl (Negative); Specific Gravity, Urine 1.015 (1.002-1.030); Urine Bilirubin Dipstick Negative (Negative); Urine Clarity Clear (Clear); Urine Urobilinogen Normal (Normal)
--- NOTE | 2023-05-04 01:04 | EX.ED.DYSGE1 ---
HPI History of Present Illness Chief Complaint: Complaint Informant: patient Narrative Narrative: 37-year-old female states for the past several days she has had painful urination. She denies any frequency of urination. She denies any abnormal vaginal discharge fevers or chills. She states that when she urinates she feels that the urine contacting her skin is burning and wonders if there is a sore there. She is concerned about a sexually transmitted disease. PFSH PFSH Medical History Abnormal uterine bleeding (AUB) Anemia Anxiety Asthma Bipolar disorder Chest pain History of edema History of irregular heartbeat History of ulceration Injury of back Loose, teeth Migraines Ovarian cyst Scoliosis Shortness of breath on exertion Smoker Home Medications ergocalciferol (vitamin D2) 1,250 mcg (50,000 unit) capsule 1,250 mcg PO QWEEK 08/19/21 [History Last Taken Unknown] naproxen sodium 220 mg capsule (Aleve) 220 mg PO BID PRN pain 09/22/21 [History Last Taken Unknown] propranolol 10 mg tablet 10 mg PO ONCE 09/22/21 [History Last Taken Unknown] bupropion HCl 150 mg 24 hr tablet, extended release 150 mg PO DAILY 01/27/23 [History Last Taken Unknown] Allergy/AdvReac Type Severity Reaction Status Date / Time cod liver oil [From Desitin] AdvReac Swelling Verified 05/03/23 23:36 morphine AdvReac Rash Verified 05/03/23 23:36 zinc oxide [From Desitin] AdvReac Swelling Verified 05/03/23 23:36 Family History Mother Cervical cancer Parathyroid abnormality Hyperlipidemia Father Heart disease Gout Grandfather Lung disease Heart disease Surgical History H/O dilation and curettage Social History household members: family current occupational status: employed current occupation: [employer] history of recent travel: Yes sexually active: No Smoking Status: Current every day smoker tobacco type: cigarettes alcohol intake: current alcohol intake frequency: holidays/special occasions only substance use type: does not use what type of physical activity do you participate in: walking frequency: 5-6 times per week seatbelt use: always do you feel safe at home: Yes additional social history: ROS ROS ED Constitutional Constitutional ED: Denies chills, fever(s) or weight loss Eyes Eyes: Denies change in vision or diplopia ENT ENT ED: Denies ear pain, rhinorrhea or sore throat Cardiovascular Cardiovascular: Denies chest pain, orthopnea, palpitations or racing heartbeat Respiratory/Chest Respiratory/Chest: Denies cough, dyspnea or orthopnea Gastrointestinal Gastrointestinal: Denies abdominal pain, diarrhea, nausea or vomiting Genitourinary Genitourinary ED: Reports dysuria; Denies hematuria or urinary frequency Musculoskeletal Musculoskeletal: Denies arthralgias or myalgias Integumentary Denies abscess or rash Neurologic Neurologic: Denies headache(s) or weakness Psychiatric Psychiatric: Denies anxiety, depression, suicidal ideation or suicidal thoughts Endocrine Endocrinology: Denies polydipsia, polyphagia or polyuria Allergic/Immunologic Allergic/Immunologic ED: Denies mouth swelling, tongue swelling or urticaria EXAM Physical Exam Const Vital Signs: 05/03/23 23:36 Temperature 96.5 F L Temperature Source Temporal Pulse Rate 85 Respiratory Rate 18 Blood Pressure 121/84 H Blood Pressure Mean 96 Pulse Ox 100 Oxygen Delivery Method Room Air Positive well nourished and well developed General Appearance ED: well developed HEENT Reports normocephalic, head/scalp atraumatic and moist mucous membranes Eyes PERRL and EOMs intact bilaterally Neck no lymphadenopathy, supple and no JVD Resp normal respiratory effort and clear to auscultation bilaterally Cardio regular rate, regular rhythm and no murmurs GI normal to inspection, nondistended, normoactive bowel sounds and non-tender Palpation: soft Narrative: Pelvic examination was performed in the presence of female RN. Located anterior left inner labia minora is 1/2 cm area of 4 distinct small lesions. They have an erythematous base and a flat white surface. They are tender to palpation. When I touch them the patient states that that is the pain that she is experiencing. I do not see any blister formation. I do not appreciate any vaginal discharge. Uterus is nontender. Back/Spine no CVA tenderness and normal ROM Extremity normal to inspection General Extremety ED: Negative for edema General Extremity: Negative for edema Neuro oriented x3 and CN's II-XII intact bilaterally Sensorium / Orientation: alert Motor Exam: strength 5/5 throughout Psych mental status grossly normal Mood & Affect: Negative for depressed or tearful Skin no rashes or lesions noted and no wounds MDM MDM MDM Narrative Medical decision making narrative: Urinalysis obtained was negative. Was sent for culture. Syphilis and HSV culture was obtained. Patient will use topical lidocaine for symptomatic relief. She is established with Dr. Molina from gynecology. I strongly urged her to follow-up there. Lab Data Labs: Laboratory Results - last 24 hr 05/04/23 00:55 Urine Color Yellow Urine Clarity Clear Urine pH 5.0 Ur Specific [place] 1.015 Urine Protein 15 H Urine Glucose (UA) Normal Urine Ketones Negative Urine Occult Blood Negative Urine Nitrite Negative Urine Bilirubin Negative Urine Urobilinogen Normal Ur Leukocyte Esterase 25 H Urine RBC 0 SEEN Urine WBC 0-5 SEEN Ur Squamous Epith Cells 0-5 SEEN Urine Bacteria RARE Urine Mucus 0 SEEN Discharge Plan Triage Chief Complaint: Complaint ED Provider: Corbin Sanchez Dx/Rx/DC Orders Clinical Impression: Dysuria, Female genital lesion Prescriptions: No Action propranolol 10 mg tablet 10 mg PO ONCE naproxen sodium [Aleve] 220 mg capsule 220 mg PO BID PRN (Reason: pain) ergocalciferol (vitamin D2) 1,250 mcg (50,000 unit) capsule 1,250 mcg PO QWEEK bupropion HCl 150 mg tablet extended release 24 hr 150 mg PO DAILY Patient Comments: TAKE 1 TABLET BY MOUTH IN THE MORNING [facility] - Chantel Molina MD [Med Staff - Active Staff] - As soon as possible Activity Restrictions/Additional Instructions: You can apply a small amount of jelly to the sore area every 2 hours and as needed. Particularly applying it about 15 to 20 minutes prior to urination may help. Disposition Disposition: Home, Self Care
[2023-05-04 01:08] LABS: Bacteria RARE /hpf (None Seen); Squamous Epithelial Cells - UA 0-5 SEEN /hpf (5-10); White Blood Cells 0-5 SEEN /hpf (0-5)
[2023-05-04 01:59] VITALS: PULSE 67; RESP 16; O2SAT 99
[2023-05-04] MEDS: Lidocaine Jelly 2% 20 ML Syringe (URO-JET) 1 APPLIC TOPICAL (02:47)
[2023-05-04 02:58] LABS: Syphilis Antibodies Non-reactive
[2023-05-06 18:59] LABS: HSV Culture Without Typing NEGATIVE (.)
== END 2023-05-04 02:53 | disposition home or self-care (01) ==
PROVIDERS: Emergency Provider Emergency Medicine; Visit Provider Emergency Medicine
DX: R30.0 Dysuria (principal); F17.210 Nicotine dependence, cigarettes, uncomplicated; R35.0 Frequency of micturition; N90.89 Other specified noninflammatory disorders of vulva and perineum
CPT/HCPCS: 81001; 86780; 87077; 87086; 87088; 87186; 87255; 99282

== ENCOUNTER → 2023-05-05 | Outpatient (CLI) | payer SELFPAY ==
[2023-05-09 08:07] LABS: Chlamydia By Nucleic Acid AMP Negative (Negative); Gonococcus By Nucleic Acid AMP Negative (Negative)
== END | disposition home or self-care (01) ==
PROVIDERS: Referring Provider Nurse Practitioner Women's Health; Visit Provider Nurse Practitioner Women's Health
DX: Z11.3 Encounter for screening for infections with a predominantly sexual mode of transmission (principal)
CPT/HCPCS: 87491; 87591

== ENCOUNTER → 2023-05-12 | Outpatient (CLI) | payer MEDICAID, SELFPAY ==
[2023-05-12 11:42] LABS: Absolute Lymphocyte Count 1.56 X10^3/uL (0.83-4.51); Absolute Neutrophil Count 3.4 X10^3/uL (2.0-7.7); Basophil# 0.06 X10^3/uL; Basophil% 1.1 % (0-1); Eosinophil# 0.08 X10^3/uL; Eosinophils% 1.5 % (0-5); Hematocrit 41.6 % (37-47); Lymphocyte # 1.56 X10^3/ul (0.83-4.51); Lymphocyte % 28.7 % (19-41); Mean Corp Hgb Conc 31.3 g/dL (32-36); Mean Corpuscular Hgb 25.6 pg (27.0-32.0); Mean Corpuscular Volume 82.1 fL (81-99); Mean Platelet Vol. 11.8 fl (6.2-12.0); Monocyte# 0.35 X10^3/uL; Monocyte% 6.4 % (0-10); NRBC Flagged by Analyzer 0 % (0-5); Neutrophil # 3.36 X10^3/uL (2.7-7.7); Neutrophil % 61.9 % (47-70); Platelet Count 270 K/mm3 (150-450); RBC Distribution Width CV 13.9 % (11.6-14.6); RBC Distribution Width SD 41.1 fl (35.1-43.9); Red Blood Count 5.07 M/mm3 (4.2-5.4); White Blood Count 5.4 K/mm3 (4.4-11.0)
[2023-05-12 14:54] LABS: Estradiol 38.7 pg/mL; Follicle Stimulating Hormone 11.4 mIU/mL; T4 Free Direct 1.13 ng/dL (0.76-1.46); Thyroid Stim Hormone (TSH) 0.54 uIU/mL (0.358-3.74)
[2023-05-13 06:09] LABS: HSV 1 IgG < 0.91 index (0.00-0.90)
[2023-05-14 06:08] LABS: HSV 1 IgG < 0.91 index (0.00-0.90)
== END | disposition home or self-care (01) ==
LOC: PAVLAB 11:27 → LAB 16:05
PROVIDERS: Referring Provider Nurse Practitioner Women's Health; Visit Provider Nurse Practitioner Women's Health
DX: R53.83 Other fatigue (principal); L65.9 Nonscarring hair loss, unspecified; R23.2 Flushing; Z13.29 Encounter for screening for other suspected endocrine disorder; N94.9 Unspecified condition associated with female genital organs and menstrual cycle
CPT/HCPCS: 36415; 82670; 83001; 84439; 84443; 85025; 86695; 86696

== ENCOUNTER 2023-12-23 22:21 | Emergency (ER) | payer SELFPAY ==
[2023-12-23 22:21] VITALS: BP 120/86; PULSE 85; RESP 18; TEMP 36.9; O2SAT 98; BMI 24.5
[2023-12-23 22:32] VITALS: O2SAT 96
--- NOTE | 2023-12-23 22:38 | RAD_ITS ---
INDICATION: cough EXAMINATION/TECHNIQUE: X-RAY - XR Chest 2 Views COMPARISON: No relevant prior comparison study available FINDINGS: LINES/DEVICES: None. LUNGS: The lungs are well expanded. No consolidation, edema or effusion. No pneumothorax. MEDIASTINUM AND CARDIOVASCULAR STRUCTURES: Cardiac silhouette not enlarged. Central airways and mediastinal contour are unremarkable. BONES AND SOFT TISSUES: No acute abnormality. RAD/Chest PA and Lateral IMPRESSION: No acute pulmonary finding. Electronically Signed: Escobar Lua MD at 23:02 EDT ,
--- NOTE | 2023-12-23 23:29 | EX.ED.DYSGE1 ---
HPI History of Present Illness Chief Complaint: Cough Informant: patient Narrative Narrative: Patient is a 38-year-old female with past medical history of bipolar disorder and nicotine use. She states for the past 3 weeks she has had mild congestion and cough. She denies any known sick contacts or history of asthma COPD or emphysema. She states that the symptoms do not seem to be improving and she is concerned she may have developed pneumonia and secondary to this comes in for evaluation. [facility] Medical History (Updated 12/23/23 @ 23:[address] Moris Solis, DO) Anxiety Loose, teeth Bipolar disorder Injury of back History of ulceration Smoker Asthma Shortness of breath on exertion Chest pain History of edema History of irregular heartbeat Abnormal uterine bleeding (AUB) Anemia Ovarian cyst Migraines Scoliosis Home Medications ?Medication ?Instructions ?Recorded ?Last Taken ?Type ergocalciferol (vitamin D2) 1,250 1,250 mcg PO QWEEK 08/19/21 Unknown History mcg (50,000 unit) capsule naproxen sodium 220 mg capsule 220 mg PO BID PRN pain 09/22/21 Unknown History (Aleve) propranolol 10 mg tablet 10 mg PO ONCE 09/22/21 Unknown History bupropion HCl 150 mg 24 hr tablet, 150 mg PO DAILY 01/27/23 Unknown History extended release azithromycin 250 mg tablet See Rx Instructions PO .COMPLEX #6 12/23/23 Unknown Rx tabs benzonatate 200 mg capsule 200 mg PO TID PRN cough #30 caps 12/23/23 Unknown Rx prednisone 20 mg tablet 40 mg (2 x 20 mg) PO DAILY 5 days 12/23/23 Unknown Rx #10 tabs Allergy/AdvReac Type Severity Reaction Status Date / Time cod liver oil (From Desitin) AdvReac Swelling Verified 12/23/23 22:23 morphine AdvReac Rash Verified 12/23/23 22:23 zinc oxide (From Desitin) AdvReac Swelling Verified 12/23/23 22:23 Family History Mother Cervical cancer Parathyroid abnormality Hyperlipidemia Father Heart disease Gout Grandfather Lung disease Heart disease Surgical History H/O dilation and curettage Social History household members: family current occupational status: employed current occupation: [employer] history of recent travel: Yes sexually active: No Smoking Status: Current every day smoker tobacco type: e-cigarettes alcohol intake: current alcohol intake frequency: holidays/special occasions only substance use type: does not use what type of physical activity do you participate in: walking frequency: 5-6 times per week seatbelt use: always do you feel safe at home: Yes additional social history: ROS ROS ED Constitutional Constitutional ED: Denies chills or fever(s) ENT ENT ED: Reports rhinorrhea and sore throat Cardiovascular Cardiovascular: Denies chest pain Respiratory/Chest Respiratory/Chest: Reports cough; Denies dyspnea Gastrointestinal Gastrointestinal: Denies abdominal pain, diarrhea, nausea or vomiting Genitourinary Genitourinary ED: Denies dysuria Musculoskeletal Musculoskeletal: Denies myalgias Integumentary Denies rash Neurologic Neurologic: Denies headache(s) Hematologic/Lymphatic Hematologic/Lymphatic: Denies easy bleeding or easy bruising EXAM Physical Exam Const Vital Signs: 12/23/23 22:21 12/23/23 22:32 Temperature 98.4 F Temperature Source Temporal Pulse Rate 85 Respiratory Rate 18 Respiratory Effort Normal Respiratory Depth Normal Respiratory Pattern Normal Blood Pressure 120/86 H Blood Pressure Mean 97 Pulse Ox 98 Oxygen Delivery Method Room Air Room Air Positive well nourished and well developed General Appearance ED: well developed; Negative for pallor HEENT HEENT Narrative: Bilateral TMs are retracted but show no secondary changes to suggest infection Nasal mucosa is hyperemic and boggy with enlarged inferior nasal turbinates Posterior pharynx displays cobblestoning consistent with sinus drainage without airway edema or compromise No secondary findings in the posterior pharynx to suggest infection Eyes PERRL and EOMs intact bilaterally General Eye ED: Negative for pale conjunctiva or scleral icterus Neck supple Neck Narrative: No nuchal rigidity or meningeal signs noted Chest Wall palpation of chest normal Resp normal respiratory effort Resp Narrative: Breath sounds are slight diminished throughout there is faint rhonchi noted in the bilateral lower lobes slightly greatest on the left without nasal flaring retractions tachypnea or accessory muscle use Cardio regular rate and regular rhythm Extremity normal to inspection Extremity Narrative: No asymmetric edema no pitting edema negative Homans' sign bilaterally Neuro oriented x3, CN's II-XII intact bilaterally and no sensory deficits noted Sensorium / Orientation: alert Motor Exam: strength 5/5 throughout Psych mental status grossly normal Skin no rashes or lesions noted and no wounds General Skin Exam: Negative for jaundice or pallor MDM MDM MDM Narrative Medical decision making narrative: Patient arrived to the ER with stable vitals and in no acute distress. She reported 3 weeks of congestion and cough without known sick contacts. Differential diagnosis is for a upper respiratory tract infection versus bronchitis versus pneumonia versus pneumothorax. At this time his vitals are stable and she is not in respiratory distress I do not feel there is need for testing other than a chest x-ray to check for lung pathology. Chest x-ray revealed no acute findings indicating patient has most likely a recurrent URI or prolonged URI. At this time she is not requiring supplemental oxygen she is not in respiratory distress she does not have any type of lung derangement such as pleural effusion or pneumothorax and therefore there is no need for further workup in the ER and she is otherwise safe for discharge with symptomatic care History & Record Review Discussion w/independent historian: Patient Radiography Diagnostic Testing: Clinical Impression(s) from Imaging Studies Chest X-Ray 12/23/23 22:38 IMPRESSION: No acute pulmonary finding. Electronically Signed: Escobar Lua MD at 23:02 EDT Reading Location ID and State: [address] [place] [address] Tel , Service support , 2 view chest x-ray as interpreted by the emergency medicine physician reveals no acute infiltrate pneumothorax pleural effusion or widening of the mediastinum Discharge Plan Triage Chief Complaint: Cough ED Provider: Moris Solis Dx/Rx/DC Orders Clinical Impression: Upper respiratory tract infection, Bipolar 1 disorder, Nicotine use Instructions: ED Upper Resp Infec Abx Tx Prescriptions: New azithromycin 250 mg tablet See Rx Instructions .ROUTE .COMPLEX Qty: 6 0RF Rx Instructions: For 250 mg dose pack: take 500 mg today (day 1), then 250 mg for 4 days (days 2-5) prednisone 20 mg tablet 40 mg PO DAILY 5 Days Qty: 10 0RF benzonatate 200 mg capsule 200 mg PO TID PRN (Reason: cough) Qty: 30 0RF No Action propranolol 10 mg tablet 10 mg PO ONCE naproxen sodium [Aleve] 220 mg capsule 220 mg PO BID PRN (Reason: pain) ergocalciferol (vitamin D2) 1,250 mcg (50,000 unit) capsule 1,250 mcg PO QWEEK bupropion HCl 150 mg tablet extended release 24 hr 150 mg PO DAILY Patient Comments: TAKE 1 TABLET BY MOUTH IN THE MORNING Primary Care Provider: Medical Yamile Rosenberg Referrals: [facility] Yamile Rosenberg [Primary Care Provider] - Print Language: [place] Disposition Disposition: Home, Self Care
[2023-12-23 23:46] VITALS: BP 110/64; PULSE 85; RESP 17; TEMP 36.9; O2SAT 97
== END 2023-12-23 23:46 | disposition home or self-care (01) ==
PROVIDERS: Emergency Provider Emergency Medicine; Visit Provider Emergency Medicine
DX: J06.9 Acute upper respiratory infection, unspecified (principal); F31.9 Bipolar disorder, unspecified; F17.290 Nicotine dependence, other tobacco product, uncomplicated
CPT/HCPCS: 71046; 99282

== ENCOUNTER 2024-12-01 01:25 | Emergency (ER) | payer MEDICAID, SELFPAY ==
[2024-12-01] VITALS (19 sets, daily range): BP systolic 95–125; BP diastolic 57–91; PULSE 59–84; RESP 12–24; TEMP 36.6–37; O2SAT 95–100; BMI 26.2
--- NOTE | 2024-12-01 01:37 | EKG12_ITS ---
Test Reason : CP Blood Pressure : */* mmHG Vent. Rate : 69 BPM Atrial Rate : 69 BPM P-R Int : 198 ms QRS Dur : 90 ms QT Int : 416 ms P-R-T Axes : 13 19 19 degrees QTcB Int : 445 ms Normal sinus rhythm Normal ECG Confirmed by MARISOL DONOVAN, JUDE ([id number]), editor magazine CLEMENTE MCCOLLUM ([id number]) on 12/05/2024 6:58:20 AM Referred By: TB Confirmed By: JUDE DAMON MD
--- NOTE | 2024-12-01 01:50 | RAD_ITS ---
PROCEDURE: CHEST PA AND LATERAL 12/01/2024 REASON FOR EXAM: CHEST PAIN TECHNIQUE: Frontal and lateral views of the chest. COMPARISON: None available FINDINGS: The lungs appear clear. Pulmonary vascularity appears within limits. No pleural effusion. The cardiac and mediastinal contours appear within limits. Mild rightward curvature of the partially imaged upper lumbar spine. RAD/Chest PA and Lateral IMPRESSION: No evidence of acute disease Reading Location: [id number]
[2024-12-01] MEDS: 0.9% Normal Saline (1000mL) 1,000 ML 999 ML IV (02:00)
[2024-12-01 02:08] LABS: Absolute Lymphocyte Count 2.68 X10^3/uL (0.83-4.51); Absolute Neutrophil Count 3.7 X10^3/uL (2.0-7.7); Basophil# 0.04 X10^3/uL; Basophil% 0.6 % (0-1); Eosinophil# 0.12 X10^3/uL; Eosinophils% 1.7 % (0-5); Hematocrit 37.4 % (37-47); Hemoglobin 12.3 g/dL (12.0-15.0); Lymphocyte # 2.68 X10^3/ul (0.83-4.51); Mean Corp Hgb Conc 32.9 g/dL (32-36); Mean Corpuscular Volume 82.2 fL (81-99); Mean Platelet Vol. 11.5 fl (6.2-12.0); Monocyte# 0.47 X10^3/uL; Monocyte% 6.7 % (0-10); NRBC Flagged by Analyzer 0 % (0-5); Neutrophil # 3.73 X10^3/uL (2.7-7.7); Neutrophil % 52.7 % (47-70); Platelet Count 256 K/mm3 (150-450); RBC Distribution Width CV 12.8 % (11.6-14.6); RBC Distribution Width SD 38.1 fl (35.1-43.9); Red Blood Count 4.55 M/mm3 (4.2-5.4); White Blood Count 7.1 K/mm3 (4.4-11.0)
[2024-12-01 02:12] LABS: Anion Gap 12 (5-15); BUN 11 mg/dL (4-19); Calcium,Total 8.6 mg/dL (7.6-11.0); Carbon Dioxide 22.6 mmol/L (21.0-32.0); Chloride 105 mmol/L (98-108); Creatinine, Serum 0.96 mg/dL (0.70-1.20); EST Glomerular Filtration Rate 77 (>60); Glucose 115 mg/dL (70-99); Potassium 3.3 mmol/L (3.3-5.1); Sodium Level 140 mmol/L (133-145); Troponin T High Sensitivity < 6 ng/L (<=14)
--- NOTE | 2024-12-01 03:30 | EDS_ITS ---
HPI History of Present Illness Chief Complaint: Chest Pain Narrative Narrative: Patient is a 39-year-old female with past medical history of Monica, bipolar disorder, asthma who presented to the emergency department chief complaint of chest pain and tightness in her chest. Patient states that she has been under a lot of stress recently and does not know if this is her anxiety but states that this evening she was writing/journaling and noted that she developed the sensation. States that it felt tight around her neck she attempted to remove her shirt and this sensation not go away therefore she came here for the evaluation management. Patient denies any recent travel history denies any history of blood clots. Patient denies any control use. [facility] Medical History Anxiety Loose, teeth Bipolar disorder Injury of back History of ulceration Smoker Asthma Shortness of breath on exertion Chest pain History of edema History of irregular heartbeat Abnormal uterine bleeding (AUB) Anemia Ovarian cyst Migraines Scoliosis Home Medications ?Medication ?Instructions ?Recorded ?Last Taken ?Type ergocalciferol (vitamin D2) 1,250 1,250 mcg PO QWEEK 0 08/19/21 Unknown History mcg (50,000 unit) capsule naproxen sodium 220 mg capsule 220 mg PO BID PRN pain 09/22/21 Unknown History (Aleve) propranolol 10 mg tablet 10 mg PO ONCE 09/22/21 Unkno wn History bupropion HCl 150 mg 24 hr tablet, 150 mg PO DAILY Unknown History extended release azithromycin 250 mg tablet See Rx Instructions PO .COM PLEX #6 12/23/23 Unknown Rx tabs benzonatate 200 mg capsule 200 mg PO TID PRN cough #30 caps 12/23/23 Unknown Rx prednisone 20 mg tablet 40 mg (2 x 20 mg) PO DAILY 5 days 12/23/23 Unknown Rx #10 tabs Allergy/AdvReac Type Severity Reaction Status Date / Time cod liver oil (From Desitin) AdvReac Swelling Verified 12/01/24 01:25 morphine AdvReac Rash Verified 12/01/24 01:25 zinc oxide (From Desitin) AdvReac Swelling Verified 12/01/24 01:25 Family History Mother Cervical cancer Parathyroid abnormality Hyperlipidemia Father Heart disease Gout Grandfather Lung disease Heart disease Surgical History H/O dilation and curettage Social History household members: family current occupational status: employed current occupation: [employer] history of recent travel: Yes sexually active: No Smoking Status: Current every day smoker tobacco type: e-cigarettes alcohol intake: current alcohol intake frequency: holidays/special occasions only substance use type: does not use what type of physical activity do you participate in: walking frequency: 5-6 times per week seatbelt use: always do you feel safe at home: Yes additional social history: ROS ROS ED ROS Narrative Constitutional: Denies fevers, chills, headaches, lightness, dizziness Eyes: Denies change in vision double vision blurry vision Cardiovascular: Claims chest tightness as noted above denies palpitations Respiratory: Denies coughing wheezing shortness of breath Abdomen: Denies abdominal pain nausea vomit diarrhea : Denies any urinary symptoms Neurological: Denies any numbness, weakness, tingling Musculoskeletal: Denies back pain Skin: Denies any rashes or lesions EXAM Physical Exam Narrative Exam Narrative: General: Patient was lying in bed rest comfortably did not appear to be acute distress Head: Atraumatic, normocephalic Eyes: PERRL bilaterally, EOMI bilaterally, no conjunctival injection noted Neck: Soft, supple, trachea midline Cardiovascular: Regular rate and rhythm no murmurs gallops rubs noted Respiratory: Clear to auscultation bilaterally Abdomen: Soft, nondistended, no tenderness palpation Extremities: +5/5 strength into the bilateral upper and lower extremities, radial pulses +2/4 in the bilateral extremities, no pedal edema on exam Neurological: Patient following commands knew that she was at [facility] years 2024 Skin: Warm, dry, tact no rashes or lesions noted Const Vital Signs: 12/01/24 01:26 12/01/24 01:26 12/01/24 01:30 Temperature 98.6 F Temperature Source Oral Pulse Rate 71 74 Respiratory Rate 16 18 Respiratory Effort Normal Blood Pressure 125/91 H 116/74 Blood Pressure Mean 102 85 Pulse Ox 100 100 Oxygen Delivery Method Room Air 12/01/24 01:45 12/01/24 01:45 12/01/24 02:00 Temperature Temperature Source Pulse Rate 75 Respiratory Rate 16 Respiratory Effort Blood Pressure 100/69 100/69 102/76 Blood Pressure Mean 78 78 86 Pulse Ox 100 Oxygen Delivery Method 12/01/24 02:15 12/01/24 02:25 12/01/24 02:30 Temperature Temperature Source Pulse Rate 67 69 64 Respiratory Rate 18 20 H 18 Respiratory Effort Blood Pressure 100/77 100/77 Blood Pressure Mean 85 84 Pulse Ox 99 100 Oxygen Delivery Method Room Air 12/01/24 02:45 12/01/24 03:00 12/01/24 03:00 Temperature Temperature Source Pulse Rate 74 72 67 Respiratory Rate 24 H 18 17 Respiratory Effort Blood Pressure 106/73 Blood Pressure Mean 84 Pulse Ox 100 97 95 Oxygen Delivery Method Room Air 12/01/24 03:04 12/01/24 03:15 12/01/24 03:30 Temperature Temperature Source Pulse Rate 76 67 Respiratory Rate 12 19 H Respiratory Effort Blood Pressure 106/73 110/80 Blood Pressure Mean 84 89 Pulse Ox 100 99 Oxygen Delivery Method 12/01/24 03:45 12/01/24 04:00 12/01/24 04:15 Temperature Temperature Source Pulse Rate 69 61 61 Respiratory Rate 17 17 15 Respiratory Effort Blood Pressure 96/68 Blood Pressure Mean 77 Pulse Ox 98 98 97 Oxygen Delivery Method 12/01/24 04:30 12/01/24 04:45 12/01/24 05:00 Temperature Temperature Source Pulse Rate 59 L 61 62 Respiratory Rate 15 15 14 Respiratory Effort Blood Pressure 95/74 Blood Pressure Mean 82 Pulse Ox 97 97 97 Oxygen Delivery Method MDM MDM MDM Narrative Medical decision making narrative: Patient is a 39-year-old female who presented to the emergency department chief complaint of chest pain. On the differential diagnose includes but not limited to ACS, pneumonia, PE although have low suspicion for this based on revised [place] score see score documented below, anxiety, panic attack. Once workup is obtained reviewed she will be reevaluated. [place] Score (Revised) for Pulmonary Embolism from [email or web address] on 12/01/2024 All calculations should be rechecked by clinician prior to use RESULT SUMMARY: 0 points Low risk group: 7-9% incidence of PE from several studies. INPUTS: Age >65 ?> 0 = No Previous DVT or PE ?> 0 = No Surgery (under general anesthesia) or lower limb fracture in past month ?> 0 = No Active malignant condition ?> 0 = No Unilateral lower limb pain ?> 0 = No Hemoptysis ?> 0 = No Heart rate ?> 0 = < 75 Pain on lower limb palpation and unilateral edema ?> 0 = No Patient's CBC reviewed showed no evidence leukocytosis white blood count 7.1, hemolyzed 0.3, plate count normal 256. Patient odium of 140, potassium of 3.3, creatinine 0.96. Patient troponin was less than 6 delta troponin obtained less than 6, EKG showed sinus rhythm rate of 69 bpm. Patient's chest x-ray reviewed myself by radiology showed no acute pulm processes. On reevaluation of the patient she is feeling better and she would like to go home. Discussed results with her she is advised follow-up primary care physician and return with worsening symptoms or any concerns. She is agreeable this plan all question concerns answered she is discharged home in stable condit ion. Lab Data Labs: Laboratory Results - last 24 hr 12/01/24 12/01/24 01:29 03:41 WBC 7.1 RBC 4.55 Hgb 12.3 Hct 37.4 MCV 82.2 MCH 27.0 MCHC 32.9 RDW Std Deviation 38.1 RDW Coeff of Rosa 12.8 Plt Count 256 MPV 11.5 Immature Gran % (Auto) 0.300 Neut % (Auto) 52.7 Lymph % (Auto) 38.0 [place] % (Auto) 6.7 Eos % (Auto) 1.7 Baso % (Auto) 0.6 Absolute Neuts (auto) 3.7 Absolute Lymphs (auto) 2.68 Nucleated RBC % 0 Sodium 140 Potassium 3.3 Chloride 105 Carbon Dioxide 22.6 Anion Gap 12 BUN 11 Creatinine 0.96 Estim Creat Clear Calc 98.10 Est GFR (MDRD) Non-Af 77 BUN/Creatinine Ratio 11.0 Glucose 115 H Calcium 8.6 Troponin T High Sens < 6 Troponin T Hi Sens 2 Hr < 6 Radiography Diagnostic Testing: Clinical Impression(s) from Imaging Studies Chest X-Ray 12/01/24 01:50 IMPRESSION: No evidence of acute disease Reading Location: [id number] Discharge Plan Triage Chief Complaint: Chest Pain ED Provider: Anthony Frias Dx/Rx/DC Orders Clinical Impression: Chest pain Prescriptions: No Action propranolol 10 mg tablet 10 mg PO ONCE naproxen sodium [Aleve] 220 mg capsule 220 mg PO BID PRN (Reason: pain) ergocalciferol (vitamin D2) 1,250 mcg (50,000 unit) capsule 1,250 mcg PO QWEEK bupropion HCl 150 mg tablet extended release 24 hr 150 mg PO DAILY Patient Comments: TAKE 1 TABLET BY MOUTH IN THE MORNING azithromycin 250 mg tablet See Rx Instructions .ROUTE .COMPLEX Qty: 6 0RF Rx Instructions: For 250 mg dose pack: take 500 mg today (day 1), then 250 mg for 4 days (days 2-5) prednisone 20 mg tablet 40 mg PO DAILY 5 Days Qty: 10 0RF benzonatate 200 mg capsule 200 mg PO TID PRN (Reason: cough) Qty: 30 0RF Primary Care Provider: Care Physician,No Primary Referrals: Care Physician,No Primary [Primary Care Provider] - Activity Restrictions/Additional Instructions: Follow-up with your doctor in outpatient setting. Return with worsening symptoms or concerns. Your blood work did not show any acute findings and your heart enzymes called troponin were normal as well. Your EKG was normal. Your chest x-ray is normal. Print Language: Lithuanian Disposition Disposition: Home, Self Care
[2024-12-01 04:12] LABS: Troponin T High Sens 2 HR < 6 ng/L (<=14)
== END 2024-12-01 05:26 | disposition home or self-care (01) ==
PROVIDERS: Emergency Provider Emergency Medicine; Visit Provider Emergency Medicine
DX: R07.89 Other chest pain (principal); F31.9 Bipolar disorder, unspecified; F41.9 Anxiety disorder, unspecified; J45.909 Unspecified asthma, uncomplicated; F17.290 Nicotine dependence, other tobacco product, uncomplicated; Z79.899 Other long term (current) drug therapy
CPT/HCPCS: 71046; 80048; 84484; 85025; 93005; 96360; 96361; 99283; A4216

== ENCOUNTER 2025-07-11 17:31 | Emergency (ER) | payer OTHER, SELFPAY ==
[2025-07-11 17:32] VITALS: BP 127/75; PULSE 89; RESP 16; TEMP 36.4; O2SAT 96; BMI 30.5
[2025-07-11 17:49] LABS: Mucous, Urine 0 SEEN /hpf (<or=2+)
[2025-07-11 18:14] LABS: Color, Urine Straw (Yellow); Glucose, Dipstick Normal (Normal); Ketone-Dipstick Negative (Negative); Leukocyte Esterase-Dipstick 500 /ul (Negative); Nitrite-Dipstick Positive (Negative); Occult Blood-Urine 150 /ul (Negative); Protein-Dipstick 15 mg/dl (Negative); Specific Gravity, Urine 1.010 (1.002-1.030); Urine Bilirubin Dipstick Negative (Negative)
[2025-07-11 18:30] VITALS: BP 109/82; PULSE 79; RESP 17; O2SAT 100
[2025-07-11 18:31] VITALS: BP 109/82; PULSE 78; RESP 17; TEMP 36.9; O2SAT 100
[2025-07-11 18:41] LABS: Red Blood Cells-Urine 0-5 SEEN /hpf (0-5)
[2025-07-11 18:42] LABS: Squamous Epithelial Cells - UA 0-5 SEEN /hpf (5-10)
[2025-07-11 19:04] VITALS: BP 107/82; PULSE 76; O2SAT 98
--- OUTSIDE RECORDS SUMMARY | 2025-07-11 19:12 | XMS RPT_ITS | CCD ---
Author Organization [facility] Care Team Providers Care Lathe Turner Name Role Phone Unavailable Primary Care Provider [facility], [place] Dipak Primary Care Pro vider [facility], Fady Quesada Referring Provid er Lukasz DRAINAGE ENGINEER, DRAINAGE ENGINEER-Zaynab Montejo Attending Provider [phone] [facility], [place] Quesada Primary Care Pro vider [facility], [place] Quesada Referring Provid er Lukasz DRAINAGE ENGINEER, DRAINAGE ENGINEER-Zaynab Montejo Attending Provider [phone] Unavailable [facility] Provider [facility] Solis Attending Unavailable [facility], [place] [facility] Primary Care Unavailable Anthony Frias Attending Unavailable Care Physician, No Primary Primary Care Unava ilLEE Novoa Attending Unavailable DARLING LUCERO Attending Unavailable ADA FERNÁNDEZ Attending Unavailab arthur MARTINEZ, PHYSICIAN Primary Care Unavailable OMAR CRUZ Attending Unavailable OMAR CRUZ Referring Unavailable OMAR CRUZ Attending Unavailable SELF Referring Unavailable Allergies Allergy Classification Reported Allergen(s) Allergy Type Date of Onset Reaction(s) Facility (20 sources) Cod Liver Oil; Translations: [COD LIVER OIL] Drug Allergy 05-19-2020 [facility] (20 sources) Morphine; Translations: [MORPHINE] Drug Allergy 01-21-2011 [facility] Work Phone: (20 sources) Zinc Oxide; Translations: [ZINC OXIDE] Drug Allergy 01-21-2011 [facility] Work Phone: (4 sources) Zinc Oxide Drug Allergy 05-29-2022 [facility] (1 source) Cod liver oil Drug allergy (disorder) 12-01-2024 [facility] (1 source) Morphine Drug Allergy 12-01-2024 [facility] (1 source) Zinc Oxide Drug Allergy 12-01-2024 [facility] Medications Current Medications Medication Drug Class(es) Dates Sig (Normalized) Sig (Original) 24 hr buPROPion hydrochloride 150 mg extended release oral tablet (17 sources) Aminoketone Start: 01-27-2023 take 1 tablet by mouth once daily buPROPion XL (WELLBUTRIN XL) 150 mg 24 hr tablet Take 1 tablet by mouth once daily. 01/27/2023 Active Comment on above: Take 1 tablet by kiah th once daily. ergocalciferol 1.25 mg oral capsule (8 sources) Provitamin D2 Compound Start: 08-19-2021 take 1250 ug by mouth every week Ergocalciferol (Vitamin D2) Active 1250 MCG PO EVERY WEEK August 19, 2021 12:00am fish oil/borage/flax/om3, 6,9 1 (OMEGA 3-6-9 ORAL) (10 sources) fish oil/borage/flax/om3 ,6,9 1 (OMEGA 3-6-9 ORAL) Take by mouth once daily. Active L-Methylfolate 15 mg tab (6 sources) Start: 11-14-2024 take 1 tablet by mouth once daily L-Methylfolate 15 mg tab Take 1 tablet by mouth once daily. 11/14/2024 Active naproxen sodium 220 mg oral capsule (20 sources) Nonsteroidal Anti-inflammatory Drug Start: 09-22-2021 take 1 capsule by mouth twice daily Naproxen Sodium (Aleve) 220 mg capsule Active 220 MG PO TWICE A DAY September 21, 2021 11:00pm Start: 09-09-2021 End: 09-22-2021 take 250-500 mg by mouth every eight hours as needed Naproxen Discontinued 250 - 500 MG PO EVERY 8 HOURS NEEDED September 09, 2021 12:00am September 22, 2021 1:02pm Start: 05-13-2021 End: 08-19-2021 take 1 capsule by mouth twice daily Naproxen Sodium (Aleve) 220 mg capsule Discontinued 220 MG PO TWICE A DAY May 12, 2021 11:00pm August 19, 2021 9:24am valACYclovir 1000 mg oral tablet (5 sources) Herpesvirus Nucleoside Analog DNA Polymerase Inhibitor, Herpes Simplex Virus Nucleoside Analog DNA Polymerase Inhibitor, Herpes Zoster Virus Nucleoside Analog DNA Polymerase Inhibitor Start: 09-23-2023 End: 09-28-2023 take 1 tablet by mouth once daily valACYclovir (VALTREX) 1 gram tablet Indications: Recurrent herpes simplex Take 1 tablet by mouth once daily for 5 days. 5 tablet 4 09/23/2023 09/28/2023 Active Start: 05-19-2023 End: 06-08-2023 valACYclovir (VALTREX) 500 m g tablet Indications: HSV-2 (herpes simplex virus 2) infection Take 2 tablets by mouth once daily for 20 days. 10 tablet 3 05/19/2023 06/08/2023 Active Start: 05-05-2023 End: 05-15-2023 take 1000 mg by mouth twice daily Valacyclovir Discontinued 1000 MG PO TWICE A DAY 30 04May 04, 2023 11:00pm May 14, 2023 11:24pm Comment on above: Take 2 tablets by mo [facility] once daily for 20 days. [facility] [address] [facility]. Completed/Discontinued Medications Medication Drug Class(es) Dates Sig (Normalized) Sig (Original) ARIPiprazole 5 mg oral tablet (8 sources) Atypical Antipsychotic Start: 09-22-2021 End: 01-27-2023 take 1 tablet by mouth once daily Aripiprazole (Abilify) 5 mg tablet Discontinued 5 MG PO DAILY September 21, 2021 11:00pm January 26, 2023 11:10pm ferrous sulfate 325 mg oral tablet (12 sources) Start: 05-19-2020 End: 05-19-2023 ferrous sulfate 325 mg (65 mg iron) tablet TWICE A DAY 0 05/19/2020 05/19/2023 Discontinued Comment on above: TWICE A DAY ibuprofen 200 mg oral capsule (8 sources) Nonsteroidal Anti-inflammatory Drug Start: 05-13-2021 End: 08-19-2021 take 200 mg by mouth every six hours Ibuprofen Discontinued 200 MG PO EVERY 6 HOURS May 12, 2021 11:00pm August 19, 2021 9:24am Multivitamin ORAL capsule (4 sources) End: 05-19-2023 take 1 capsule by mouth once daily Multivitamin ORAL capsule Take 1 capsule by mouth once daily. 0 05/19/2023 Discontinued take 1 capsule by mouth once karitk ly Multivitamin ORAL capsule Take 1 capsule by mouth once daily. 0 Active Comment on above: Take 1 capsule by [facility] once daily. norethindrone acetate 5 mg oral tablet (20 sources) Start: End: 2 take 1 tablet by mouth twice daily, then take 1 tablet by mouth once daily Norethindrone Acetate (Aygestin) 5 mg tablet Discontinued 5 MG PO .COMPLEX September 04, 2021 2:48pm September 22, 2021 1:02pm 5 mg PO BID x 3 days and then once daily for remainder Start: 05-13-2021 End: 07-10-2021 take 1 tablet by mouth three times daily, then take 1 tablet by mouth twice daily Norethindrone Acetate (Aygestin) 5 mg tablet Discontinued 5 MG PO .COMPLEX May 12, 2021 11:00pm July 10, 2021 11:03am 5 mg PO tid until bleeding stops X 24 hr then bid to finish Rx perflutren lipid microsphere s 1.3 mL in NaCl (PF) 0.9% 10 mL injection (DEFINITY) (2 sources) Start: 10-27-2024 End: 10-27-2024 perflutren lipid microsphere s 1.3 mL in NaCl (PF) 0.9% 10 mL injection (DEFINITY) Start: 10-27-2024 End: 10-27-2024 take 1 dose intravenously once as needed INTRAVENOUS, DIRECTED NEEDED, 1 dose, Starting on Wed10/27/24 at 1335, Until Wed10/27/24 at 1326, Per Protocol - for use during ECHO procedure only, If no IV access, insert saline lock prior to administering contrast. Discontinue saline lock post exam. If patient has central line or IVAD, may access for administration according to line specific nursing protocol. Once exam is complete, flush line and de-access per line specific nursing protocol.Dilute 1.3 ml of Definity with 8.7 ml of preservative-free saline., Cardiac Procedure Med Orders phenylephrine hydrochloride 25 mg/ml ophthalmic solution (1 source) alpha-1 Adrenergic Agonist Start: 06-18-2023 End: 06-18-2023 PHENYLephrine 2.5 % 1 Drop (AK-DILATE, ANA-SYNEPHRINE) proparacaine hydrochloride 5 mg/ml ophthalmic solution (1 source) Local Anesthetic Start: 06-18-2023 End: 06-18-2023 proparacaine 0.5 % 1 Drop (ALCAINE) propranolol hydrochloride 10 mg oral tablet (20 sources) beta-Adrenergic Vivienne Start: 09-04-2024 End: 11-23-2024 propranolol (INDERAL) 10 mg tablet 10 mg three times a day. NEEDED 09/04/2024 11/23/2024 Discontinued (Discontinued by Patient) Start: 06-17-2022 End: 11-23-2024 propranolol (INDERAL) 20 mg tablet 06/17/2022 11/23/2024 Discontinued (Discontinued by Patient) Start: 09-22-2021 take 10 mg by mouth once Propr anolol Active 10 MG PO ONCE September 21, 2021 11:00pm tropicamide 10 mg/ml ophthalmic solution (1 source) Anticholinergic Start: 06-18-2023 End: 06-18-2023 tropicamide 1 % 1 Drop (MYDRIACYL) Problems Active Problems Problem Classification Problem Date Documented Date Episodic/Chronic Blindness and vision defects (3 sources) Other visual disturbances; Translations: [Other specified visual disturbances] 06-18-2023 Episodic Deficiency and other anemia (8 sources) Anemia; Translations: [Anemia, unspecified] 05-20-2020 Episodic Endometriosis (8 sources) Uterine adenomyosis; Translations: [Adenomyosis of uterus] 09-22-2021 Chronic Genitourinary symptoms and ill-defined conditions (1 source) Dysuria; Translations: [Dysuria] 05-12-2023 Episodic Headache; including migraine (20 sources) Migraine; Translations: [Migraine, unspecified, not intractable, without status migrainosus] Onset: 04-11-2012 04-04-2013 Chronic Immunizations and screening for infectious disease (4 sources) Contact with and (suspected) exposure to infections with a predominantly sexual mode of transmission; Translations: [Contact with or exposure to venereal diseases] Onset: 11-23-2024 05-05-2023 Episodic Inflammation; infection of eye (except that caused by tuberculosis or sexually transmitteddisease) (2 sources) Bilateral punctate keratitis of eyes; Translations: [Punctate keratitis, bilateral] 06-01-2023 Chronic Mood disorders (2 sources) Bipolar I disorder; Translations: [Bipolar disorder, unspecified] 05-05-2023 Chronic Nonmalignant breast conditions (1 source) Breast finding ; Translations: [Dense breast tissue] 11-23-2024 Episodic Other connective tissue disease (3 sources) Pain in forearm; Translations: [Pain in unspecified forearm] 01-27-2023 Episodic Other eye disorders (1 source) Vitreous floaters of left eye; Translations: [Other vitreous opacities, left eye] 06-18-2023 Chronic Other eye disorders (1 source) Contact lens overwear syndrome; Translations: [Corneal disorder due to contact lens, bilateral] 06-01-2023 Episodic Other eye disorders (1 source) Disorder of lacrimal gland; Translations: [Dry eye syndrome of bilateral lacrimal glands] 06-18-2023 Episodic Other female genital disorders (8 sources) Abnormal uterine bleeding; Translations: [Abnormal uterine and vaginal bleeding, unspecified] 09-22-2021 Chronic Other female genital disorders (1 source) Abnormal uterine and vaginal bleeding, unspecified; Translations: [Unspecified disorders of menstruation and other abnormal bleeding from female genital tract] 05-12-2023 Chronic Other female genital disorders (2 sources) Disorder of female genital organs; Translations: [Unspecified condition associated with female genital organs and menstrual cycle] 05-04-2023 Episodic Other female genital disorders (1 source) Unspecified condition associated with female genital organs and menstrual cycle; Translations: [Other specified disorders of female genital organs] 05-05-2023 Episodic Other lower respiratory disease (1 source) Cough; Translations: [Acute cough] Episodic Other lower respiratory disease (1 source) Cough; Translations: [Acute cough] 07-08-2022 Episodic Other screening for suspected conditions (not mental disorders or infectious disease) (4 sources) Cancer cervix screening status; Translations: [Encounter for screening for malignant neoplasm of cervix] Onset: 11-23-2024 11-23-2024 Episodic Other skin disorders (1 source) Nonscarring hair loss, unspecified; Translations: [Alopecia, unspecified] 05-12-2023 Episodic Other upper respiratory infections (1 source) Acute upper respiratory infection; Translations: [Acute upper respiratory infection, unspecified] Episodic Residual codes; unclassified (2 sources) Flushing; Translations: [Flushing] 05-12-2023 Episodic Residual codes; unclassified (1 source) Flushing; Translations: [Flushing] 05-12-2023 Episodic Residual codes; unclassified (2 sources) Insomnia, unspecified; Translations: [Insomnia, unspecified] Onset: 03-11-2025 Episodic Spondylosis; intervertebral disc disorders; other back problems (1 source) Acute low back pain; Translations: [Acute left-sided low back pain, unspecified whether sciatica present] 01-02-2025 Episodic Spontaneous (8 sources) Miscarriage; Translations: [Complete or unspecified spontaneous without complication] 02-10-2015 Episodic Unclassified (2 sources) Patient encounter status 11-23-2024 Unclassified (1 source) Breast finding 11-23-2024 Unclassified (1 source) Cough, unspecified; Translations: [Cough, unspecified] Onset: 12-28-2023 Unclassified (1 source) Acute left-sided low back pain, unspecified whether sciatica present; Translations: [Acute left-sided low back pain, unspecified whether sciatica present] Onset: 01-02-2025 Unclassified (1 source) Dense breast tissue; Translations: [Dense breast tissue] Onset: 11-23-2024 Unclassified (1 source) Cardiology Follow Up Onset: 04-03-2025 Viral infection (2 sources) Herpes simplex type 2 infection; Translations: [Herpesviral infection, unspecified] 05-19-2023 Episodic Past or Other Problems Problem Classification Problem Date Documented Da te Episodic/Chronic Cardiac dysrhythmias (19 sources) Palpitations; Translations: [Palpitations] Onset: 09-05-2024 01-27-2023 Episodic Headache; including migraine (18 sources) Chronic headache disorder; Translations: [Chronic headaches] Onset: 04-04-2013 04-04-2013 Episodic Malaise and fatigue (18 sources) Fatigue; Translations: [Other fatigue] Onset: 04-04-2013 04-04-2013 Episodic Mood disorders (18 sources) Emotional hypersensitivity; Translations: [Emotional lability] Onset: 04-04-2013 04-04-2013 Episodic Nonspecific chest pain (20 sources) Chest pain; Translations: [Chest pain, unspecified] Onset: 09-05-2024 05-20-2020 Episodic Results Test Name Value Interpretation Reference Range Facility ALEKSEYon 04-03-2025 CNOV Office Visit (AGCARDPOB) LORNA DOW ([id number]) 1985 F Date Time Provider Department 04/03/25 3:40 PM OMAR CRUZ AGCARDPOB During your visit today, we recorded the following information about you: Pulse Blood pressure Weight 92/minute 103/72 94.5 kg Omar Cruz MD 04/03/2025 4:52 PM Signed Omar Cruz MD Interventional Cardiology [address] [place], [place] [id number] Chief Complaint Patient presents with: Cardiology Follow Up : Palpitations HISTORY OF PRESENT ILLNESS: Miss Dow is a 39-year-old female presenting for follow-up of palpitations, chest pain, and dyspnea. The patient reports ongoing episodes of palpitations and chest pain accompanied by dyspnea. She describes a new sensation of being choked, particularly when lying down, which she likens to blood flow being cut off in her neck and chest. This sensation improves after sitting up for a few minutes but recurs upon lying back down. She has been elevating the head of her bed to alleviate symptoms but reports poor sleep due to discomfort. She denies any history of endoscopy. She has tried [id number] omeprazole without relief. She has gained weight since a recent medication change. She denies monitoring her blood pressure at home. She has a history of syncope occurring randomly. She denies current smoking but quit cigarettes a few years ago and vaping a few months ago. An echocardiogram in October showed normal left ventricular function with an LVEF of 50% and no valvular abnormalities. A 14-day Holter monitor revealed normal sinus rhythm with infrequent PACs (burden <0.01%). She is not currently on any medication for her symptoms and does not feel the need for antiarrhythmic therapy at this time. Cardiac Risk Factors age (male over 45, female over 55), family history of CAD PAST MEDICAL HISTORY Diagnosis Date Chest tightness Dizzy Endometriosis 2021 Fatigue, unspecified type Herpes simplex virus (HSV) infection 2022 Want retested Infertility, female Irregular heartbeat Migraines Ovarian cyst 2017 Palpitations Shortness of breath Uterine fibroid 2021 PAST SURGICAL HISTORY Procedure Laterality Date PAST SURGICAL HISTORY OF 09/2021 D and C for growth that was inside of uterus FAMILY HISTORY Problem Relation Age of Onset Hypertension Father Cancer Mother cervical cancer Cervical Cancer Mother 30 Ovarian cancer Mother 55 Uterine Cancer Mother 30 Cancer Maternal Aunt cervical cancer No Ocular Disease No Family History SOCIAL HISTORY[1] ALLERGIES Allergen Reactions Cod Liver Oil Swelling Desitin [Zinc Oxide] Rash Morphine Rash Medications: Current Outpatient Medications Medication Sig Dispense Refill L-Methylfolate 15 mg tab Take 1 tablet by mouth once daily. fish oil/borage/flax/om3,6 ,9 1 (OMEGA 3-6-9 ORAL) Take by mouth once daily. (Patient not taking: Reported on 04/03/2025) buPROPion XL (WELLBUTRIN XL) 150 mg 24 hr tablet Take 1 tablet by mouth once daily. (Patient not taking: Reported on 01/02/2025) No current facility-administered medications for this visit. Review of Systems Constitutional: Negative for chills, diaphoresis, fever, malaise/fatigue and weight loss. HENT: Negative for congestion, ear discharge, ear pain, hearing loss, nosebleeds, sinus pain, sore throat and tinnitus. Eyes: Negative for blurred vision, double vision, photophobia, pain, discharge and redness. Respiratory: Negative for cough, hemoptysis, sputum production, shortness of breath, wheezing and stridor. Cardiovascular: Negative for chest pain, palpitations, orthopnea, claudication, leg swelling and PND. Gastrointestinal: Negative for abdominal pain, blood in stool, constipation, diarrhea, heartburn, melena, nausea and vomiting. Genitourinary: Negative for dysuria, flank pain, frequency, hematuria and urgency. Musculoskeletal: Negative for back pain, falls, joint pain, myalgias and neck pain. Skin: Negative for itching and rash. Neurological: Negative for dizziness, tingling, tremors, sensory change, speech change, focal weakness, seizures, loss of consciousness, weakness and headaches. Endo/Heme/Allergies: Negative for environmental allergies and polydipsia. Does not bruise/bleed easily. Psychiatric/Behaviora l: Negative for depression, hallucinations, memory loss, substance abuse and suicidal ideas. The patient is not nervous/anxious and does not have insomnia. Physical Examination: Vitals:BP 103/72 Pulse 92 Wt 208 lb 6.4 oz (94.5kg) SpO2 100% LMP 12/20/2024 BP w/Orthostatic Vitals Date and Time Orthostatic BP Orthostatic Pulse BP Pulse BP Position BP Site BP Cuff Size 04/03/25 1535 -- -- 103/72 92 Sitting Left Arm Large Adult Last 2 Encounter Wt Readings: Date: Wt: 04/03/2025 208 lb 6.4 oz (94.5 kg) (more content not included)... Normal [facility] ED Prov Noteon 03-12-2025 ED Prov Note ED PROVIDER NOTE [facility] NAME: Lorna Dow AGE: 39 y.o. : 1985 VISIT DATE: 03/11/2025 CSN: [id number] PCP: No, Physician Chief Complaint Patient presents with Insomnia Chief complaint insomnia History of present illness this is a 39-year-old female who states when she lays down at night she feels like chest tightness and she is feeling. She has gained about 50 pounds over the last year. She has been having palpitations she is under cardiology evaluation with a Holter monitor and echo. And thinking that she may have acid reflux she should use Prilosec today. She is waking up through the night for the last few months and sleeping a light and not restful History reviewed. No pertinent past medical history. Past Surgical History: Procedure Laterality Date UTERINE FIBROID SURGERY WISDOM TOOTH EXTRACTION History reviewed. No pertinent family history. Social History [1] Previous Medications Medication Sig vvdltykczhxu-[id number]-L2-B1 2 (e-lhoyaelfmcbj-d8-b6 -b12) 6-5-50-1 mg Tab Take by mouth daily . omeprazole (PRILOSEC OTC) 20 MG tablet Take 1 (one) tablet (20 mg total) by mouth daily . Allergies[2] Review of Systems All other systems reviewed and are negative. Patient Vitals for the past 24 hrs: BP Temp Temp src Pulse Resp SpO2 Height Weight 03/11/25 2350 138/81 98.2 degrees F (36.8 degrees C) Temporal 78 16 95 % 6' 2 90.7 kg (200 lb) Physical Exam Vitals and nursing note reviewed. Exam conducted with a printing table worker present. Constitutional: General: She is not in acute distress. Appearance: Normal appearance. She is normal weight. She is not ill-appearing, toxic-appearing or diaphoretic. HENT: Head: Normocephalic and atraumatic. Right Ear: Tympanic membrane normal. Left Ear: Tympanic membrane normal. Nose: Nose normal. Mouth/Throat: Mouth: Mucous membranes are moist. Cardiovascular: Rate and Rhythm: Normal rate and regular rhythm. Musculoskeletal: General: Normal range of motion. Cervical back: Normal range of motion and neck supple. Pulmonary: Effort: Pulmonary effort is normal. Breath sounds: Normal breath sounds. Skin: General: Skin is warm. Capillary Refill: Capillary refill takes less than 2 seconds. Neurological: Mental Status: She is alert. Laboratory & Radiographic Imaging (if done): No results found for this visit on 03/11/25. No orders to display Procedures Medical Decision Making Differential diagnosis Gastroesophageal reflux Sleep apnea Arrhythmia Weight gain contributing to insomnia Considering the above recommend she follow-up with cardiology for echo and Holter monitor results speak to her primary care physician for sleep study and possibility of need of weight loss and also a EGD Clinical Impression: 1. Insomnia, unspecified type ED Disposition ED Disposition Discharge Condition Stable Comment Lorna Dow discharged to home/self care in stable condition. Follow-up Information Follow-up information has not been specified. Contact information for after-discharge care Follow-up information has not been specified. [1] Social History Socioeconomic History Marital status: Tobacco Use Smoking status: Former Current packs/day: 2.00 Average packs/day: 2.0 packs/day for 23.7 years (47.3 ttl pk-yrs) Types: Cigarettes Start date: 2001 Passive exposure: Current Smokeless tobacco: Never Vaping Use Vaping status: Some Days Substance and Sexual Activity Drug use: Not Currently [2] Allergies Allergen Reactions Morphine Other (See Comments) Got a red line up her arm when she got it by Ada Garcia MD 03/12/25 0016 AUTHENTICATED BY ADA FERNÁNDEZ, ON 03/12/2025 00:16:02 [facility] Bacteria Ur Culton 5 Bacteria identified Cx Nom (U) CULTURE, URINE: No growth (<1,000 CFU/ml) [facility] Comment on above: Performed By: #### 6 30-4 #### [facility] CLIA [id number] [address] [place] [address] OF [facility] CNOVon 01-02-2025 CNOV Office Visit (UCWSTR ) LORNA DOW ([id number]) 1985 F Date Time Provider Department 01/02/25 7:45 PM LEE WINKLER [facility] During your visit today, we recorded the following information about you: Temperature Pulse Respiration Blood pressure 99.3 degrees 94/minute 18/minute 148/92 Weight Last Period 91.3 kg 12/20/24 Lee Winkler APRN.SCHEDULE SUPERVISOR 01/02/2025 8:16 PM Signed [facility] Subjective Lorna Dow is a 39 year old female. Patient presents with: Low Back Pain: L side low back pain x1 day HPI Increased Urinary Frequency: - Noted increased urinary frequency today, urinating approximately seven times during a work shift, compared to the usual one to two times. - No recent increase in fluid intake; typically consumes about half a bottle of water and a 16 oz drink (mostly ice) during work. - Denies nausea, emesis, fever, chills, discharge, or odor. - Reports occasional dizziness. - Denies possibility of . Chronic Back Pain: - Chronic back pain secondary to scoliosis and previous back injuries. - Describes current pain as achy and different from usual. - Denies spinal tenderness or upper back pain. - Taking dual-action Tylenol and Motrin for pain management. Review of Systems Neck: (-) neck pain Gastrointestinal: (-) abdominal pain Genitourinary: (+) urinary frequency Musculoskeletal: (+) lower back pain Neurological: (+) dizziness Objective BP 148/92 Pulse 94 Temp 37.4 ?C (99.3 ?F) Resp 18 Wt 91.3 kg (201 lb 4.5 oz) LMP 12/20/2024 (Exact Date) SpO2 98% BMI 26.56 kg/m? Physical Exam General: No acute distress. CV: Heart sounds normal. Resp: Breath sounds normal. Abd: No tenderness. Back: No spinal tenderness. {1. Acute left-sided low back pain, unspecified whether sciatica present (M54.50) - Chronic back pain with scoliosis and previous back injuries; current episode likely muscular in nature. - No spinal tenderness on examination; heart and lungs auscultated clear. - Urinalysis normal; urine culture ordered to rule out UTI. - Advised increasing water intake to prevent dehydration, which can exacerbate symptoms. - Educated on alternating Tylenol and Motrin for pain management. - Patient advised against using cranberry juice for symptom relief. - Patient to follow up if symptoms persist or worsen. and Recording using ROBAUTO software for draft documentation of the visit was discussed with the patient/authorized traffic workforce representative; all questions welcomed and answered. Patient/authorized traffic workforce representative agreed to proceed MDM Procedures Allergies As of Date: 01/02/2025 Noted Allergy Reaction COD LIVER OIL 05/19/2020 7 - Swelling DESITIN (ZINC OXIDE) 01/21/2011 2 - Rash MORPHINE 01/21/2011 2 - Rash Date Reviewed: 01/02/2025 Reviewed by: Argelia Garcia MA - Fully Assessed Reason for Visit: Low Back Pain [126] Cmt: L side low back pain x1 day Primary Visit Diagnosis:Acute left-sided low back pain, unspecified whether sciatica present [M54.50] Order(s):UA DIP, URINE (POC) [[id number]] Order #: [id number]. #:[id number] BACTERIAL CULTURE, URINE [SQURCUL] Order #: [id number]. #:[id number] Prescriptions as of 01/02/2025 - L-Methylfolate 15 mg tab Take 1 tablet by mouth once daily. - fish oil/borage/flax/om3,6 ,9 1 (OMEGA 3-6-9 ORAL) Take by mouth once daily. - buPROPion XL (WELLBUTRIN XL) 150 mg 24 hr tablet Take 1 tablet by mouth once daily. Problem List As Of Date 01/02/2025 Noted Resolved Migraines [G43.909] 04/11/2012 Chronic headaches [R51.9, G89.29] 04/04/2013 Fatigue [R53.83] 04/04/2013 Emotional hypersensitivity [R45.86] 04/04/2013 Palpitations [R00.2] 09/05/2024 Precordial pain [R07.2] 09/05/2024 Encounter Status:Closed by LEE WINKLER on 01/02/25 [facility] UA DIP, URINE (POC)on 2024 BILIRUBIN UA (POCT) Negative Negative [facility] CLARITY UA (POCT) Clear [facility] COLOR UA (POCT) Yellow [facility] GLUCOSE UA (POCT) Negative Negative mg/dL [facility] Hemoglobin Ql (U) Negative Negative [facility] Interpretation and review of laboratory results Abnormal [facility] KETONE UA (POCT) Negative Negative mg/dL [facility] LEUKOCYTES UA (POCT) Negative Negative [facility] NITRITE UA (POCT) Negative Negative [facility] PH UA (POCT) 5.5 4.5 - 8.0 [facility] Protein Ql (U) Negative Negative mg/dL [facility] SPECIFIC GRAVITY UA (POCT) <=1.005 Abnormal 1.005 - 1.030 [facility] UROBILINOGEN UA (POCT) 0.2 Ambar l E.U./dL [facility] Location:[facility], [address], [place], [address] [facility] POINT OF CARE [facility] 12 Lead EKGon 12-01-2024 12 Lead EKG [facility] Cardiovascular Services [address] [place] [address] 12 Lead EKG 12/01/24 0209 MR#: [id number] Acct: [id number] Name: PALOMALORNA GONZALEZ Rep #: [id number] : 1985 39 From: Clay Ayers MD Attending Dr: Status: DEP ER Ordering Dr: Anthony Frias DO Date: 12/01/24 Location: ED Sex: F C Admitted: Test Reason : CP Blood Pressure : */* mmHG Vent. Rate : 69 BPM Atrial Rate : 69 BPM P-R Int : 198 ms QRS Dur : 90 ms QT Int : 416 ms P-R-T Axes : 13 19 19 degrees QTcB Int : 445 ms Normal sinus rhythm Normal ECG Confirmed by MARISOL DONOVAN, CLAY ([id number]), clinical editor CLEMENTE MCCOLLUM ([id number]) on 12/05/2024 6:58:20 AM Referred By: TB Confirmed By: CLAY AYERS MD 12/05/24 0658 Date Clay Ayers MD CC: Dr. Anthony Frias DO; No Primary Care Physician Signed Normal [facility] Basic Metabolic Profile (BMP )on 12-01-2024 BUN/CRE 11.0 RATIO Normal 10-20 [facility] Comment on above: Performed By: #### L 501.4021, L100.0100, L500.2500 #### [facility] [address] [place], [address] Calcium [Mass/Vol] 8.6 mg/dL Normal 7.6-11.0 [facility] Comment on above: Performed By: #### L 501.4021, L100.0100, L500.2500 #### [facility] [address] [place], [address] Chloride [Moles/Vol] 105 mmol/L Normal 98-108 [facility] Comment on above: Performed By: #### L 501.4021, L100.0100, L500.2500 #### [facility] [address] [place], [address] CO2 [Moles/Vol] 22.6 mmol/L Normal 21.0-32.0 [facility] Comment on above: Performed By: #### L 501.4021, L100.0100, L500.2500 #### [facility] [address] [place], [address] Creatinine [Mass/Vol] 0.96 mg/dL Normal 0.70-1.20 [facility] Comment on above: Performed By: #### L 501.4021, L100.0100, L500.2500 #### [facility] [address] [place], [address] ECRCL 98.10 ml/min Normal 50-250 [facility] Comment on above: Performed By: #### L 501.4021, L100.0100, L500.2500 #### [facility] [address] [place], [address] GAP 12 Normal 5-15 [facility] Comment on above: Performed By: #### L 501.4021, L100.0100, L500.2500 #### [facility] [address] [place], [address] GFR/1.73 sq M.predicted among non-blacks MDRD (S/P/Bld) [Vol rate/Area] 77 mL/min/{1.73_m2} Normal >60 [facility] Comment on above: Result Comment: mL/m in/1.73m2 CKD-EPI Creatinine Equation (2020) Performed By: #### L 501.4021, L100.0100, L500.2500 #### [facility] [address] [place], [address] Glucose [Mass/Vol] 115 mg/dL High 70-99 [facility] Comment on above: Performed By: #### L 501.4021, L100.0100, L500.2500 #### [facility] [address] [place], [address] Potassium [Moles/Vol] 3.3 mmol/L Normal 3.3-5.1 [facility] Comment on above: Performed By: #### L 501.4021, L100.0100, L500.2500 #### [facility] [address] [place], [address] Sodium [Moles/Vol] 140 mmol/L Normal 133-145 [facility] Comment on above: Performed By: #### L 501.4021, L100.0100, L500.2500 #### [facility] [address] [place], [address] Urea nitrogen [Mass/Vol] 11 mg/dL Normal 4-19 [facility] Comment on above: Performed By: #### L 501.4021, L100.0100, L500.2500 #### [facility] [address] [place], [address] CBC W/Diff, Automatedon 05-2 -2024 Absolute Lymph 2.68 X10 3/uL Normal 0.83-4.51 [facility] Comment on above: Performed By: #### L 501.4021, L100.0100, L500.2500 #### [facility] [address] [place], [address] Absolute Neut 3.7 X10 3/uL Normal 2.0-7.7 [facility] Comment on above: Performed By: #### L 501.4021, L100.0100, L500.2500 #### [facility] [address] [place], [address] Basophils/100 WBC (Bld) 0.6 % Normal 0-1 [facility] Comment on above: Performed By: #### L 501.4021, L100.0100, L500.2500 #### [facility] [address] [place], [address] Eosinophils/100 WBC (Bld) 1.7 % Normal 0-5 [facility] Comment on above: Performed By: #### L 501.4021, L100.0100, L500.2500 #### [facility] [address] [place], [address] Erythrocyte distribution width (RBC) [Ratio] 12.8 % Normal 11.6-14.6 [facility] Comment on above: Performed By: #### L 501.4021, L100.0100, L500.2500 #### [facility] [address] [place], [address] Hematocrit (Bld) [Volume fraction] 37.4 % Normal 37-47 [facility] Comment on above: Performed By: #### L 501.4021, L100.0100, L500.2500 #### [facility] [address] [place], [address] Hemoglobin (Bld) [Mass/Vol] 12.3 g/dL Normal 12.0-15.0 [facility] Comment on above: Performed By: #### L 501.4021, L100.0100, L500.2500 #### [facility] [address] [place], [address] IG% 0.300 Normal 0.0-0.9 [facility] Comment on above: Result Comment: IG% - Immature Granulocytes (promyelocytes, myelocytes and metamyelocytes) > 1% indicates that a LEFT SHIFT is Present. Performed By: #### L 501.4021, L100.0100, L500.2500 #### [facility] [address] [place], [address] Lymphocytes/100 WBC (Bld) 38.0 % Normal 19-41 [facility] Comment on above: Performed By: #### L 501.4021, L100.0100, L500.2500 #### [facility] [address] [place], [address] MCH (RBC) [Entitic mass] 27.0 pg Normal 27.0-32.0 [facility] Comment on above: Performed By: #### L 501.4021, L100.0100, L500.2500 #### [facility] [address] [place], [address] MCHC (RBC) [Mass/Vol] 32.9 g/dL Normal 32-36 [facility] Comment on above: Performed By: #### L 501.4021, L100.0100, L500.2500 #### [facility] [address] [place], [address] MCV (RBC) [Entitic vol] 82.2 fL Normal 81-99 [facility] Comment on above: Performed By: #### L 501.4021, L100.0100, L500.2500 #### [facility] [address] [place], [address] Monocytes/100 WBC (Bld) 6.7 % Normal 0-10 [facility] Comment on above: Performed By: #### L 501.4021, L100.0100, L500.2500 #### [facility] [address] [place], [address] Neutrophils/100 WBC (Bld) 52.7 % Normal 47-70 [facility] Comment on above: Performed By: #### L 501.4021, L100.0100, L500.2500 #### [facility] [address] [place], [address] Nucleated RBC (Bld) [#/Vol] 0 10*3/uL Normal 0-5 [facility] Comment on above: Performed By: #### L 501.4021, L100.0100, L500.2500 #### [facility] [address] [place], [address] Platelet mean volume (Bld) [Entitic vol] 11.5 fL Normal 6.2-12.0 [facility] Comment on above: Performed By: #### L 501.4021, L100.0100, L500.2500 #### [facility] [address] [place], [address] Platelets (Bld) [#/Vol] 256 10*3/uL Normal 150-450 [facility] Comment on above: Performed By: #### L 501.4021, L100.0100, L500.2500 #### [facility] [address] [place], [address] RBC (Bld) [#/Vol] 4.55 10*6/uL Normal 4.2-5.4 [facility] Comment on above: Performed By: #### L 501.4021, L100.0100, L500.2500 #### [facility] [address] [place], [address] RDW SD 38.1 fl Normal 35.1-43.9 [facility] Comment on above: Performed By: #### L 501.4021, L100.0100, L500.2500 #### [facility] [address] [place], [address] WBC (Bld) [#/Vol] 7.1 10*3/uL Normal 4.4-11.0 [facility] Comment on above: Performed By: #### L 501.4021, L100.0100, L500.2500 #### [facility] [address] [place], [address] Chest PA and Lateralon 12-01 Chest PA and Lateral [facility] Imaging Services [address] [place] [address] Chest PA and Lateral MR#: [id number] Acct: [id number] Name: LORNA DOW Rep #: [id number] : 1985 F 39 From: Casey Morgan MD PCP: [facility] Status: PRE ER Study: Chest PA and Lateral Date of Exam: 12/01/24 Exam# [id number] Ordering Dr: Anthony Frias DO PROCEDURE: CHEST PA AND LATERAL 12/01/2024 REASON FOR EXAM: CHEST PAIN TECHNIQUE: Frontal and lateral views of the chest. COMPARISON: None available FINDINGS: The lungs appear clear. Pulmonary vascularity appears within limits. No pleural effusion. The cardiac and mediastinal contours appear within limits. Mild rightward curvature of the partially imaged upper lumbar spine. RAD/Chest PA and Lateral IMPRESSION: No evidence of acute disease Reading Location: [facility] CC: Dr. Anthony Frias DO; [facility] Swahili Teacher: Signed Normal [facility] Emergency Department Summary on 12-01-2024 Emergency Department Summary [facility] Medical Records Department [address] [place] [address] Emergency Department Summary 12/01/24 MR#: [id number] Acct: [id number] Name: LORNA DOW Rep #: [id number] : 1985 39 From: Anhtony Frias DO PCP: Care Physician,No Primary Status:REG ER Location: ED HPI History of Present Illness Chief Complaint: Chest Pain Narrative Narrative: Patient is a 39-year-old female with past medical history of Monica, bipolar disorder, asthma who presented to the emergency department chief complaint of chest pain and tightness in her chest. Patient states that she has been under a lot of stress recently and does not know if this is her anxiety but states that this evening she was writing/journaling and noted that she developed the sensation. States that it felt tight around her neck she attempted to remove her shirt and this sensation not go away therefore she came here for the evaluation management. Patient denies any recent travel history denies any history of blood clots. Patient denies any control use. [facility] Medical History Anxiety Loose, teeth Bipolar disorder Injury of back History of ulceration Smoker Asthma Shortness of breath on exertion Chest pain History of edema History of irregular heartbeat Abnormal uterine bleeding (AUB) Anemia Ovarian cyst Migraines Scoliosis Home Medications ???Medication ???Instructions ???Recorded ???Last Taken ???Type ergocalciferol (vitamin D2) 1,250 1,250 mcg PO QWEEK 08/19/21 Unkno wn History mcg (50,000 unit) capsule naproxen sodium 220 mg capsule 220 mg PO BID PRN pain 09/22/21 Un known History (Aleve) propranolol 10 mg tablet 10 mg PO ONCE 09/22/21 Unknown His tory bupropion HCl 150 mg 24 hr tablet, 150 mg PO DAILY 01/27/23 Unknown History extended release azithromycin 250 mg tablet See Rx Instructions PO .COMPLEX #6 12/23/23 Unknown Rx tabs benzonatate 200 mg capsule 200 mg PO TID PRN cough #30 caps 0 12/23/23 Unknown Rx prednisone 20 mg tablet 40 mg (2 x 20 mg) PO DAILY 5 days 12/23/23 Unknown Rx #10 tabs Allergy/AdvReac Type Severity Reaction Status Date / Time cod liver oil (From Desitin) AdvReac Swelling Verified 12/01/24 01:25 morphine AdvReac Rash Verified 12/01/24 01:25 zinc oxide (From Desitin) AdvReac Swelling Verified 12/01/24 01:25 Family History Mother Cervical cancer Parathyroid abnormality Hyperlipidemia Father Heart disease Gout Grandfather Lung disease Heart disease Surgical History H/O dilation and curettage Social History household members: family current occupational status: employed current occupation: [employer] history of recent travel: Yes sexually active: No Smoking Status: Current every day smoker tobacco type: e-cigarettes alcohol intake: current alcohol intake frequency: holidays/special occasions only substance use type: does not use what type of physical activity do you participate in: walking frequency: 5-6 times per week seatbelt use: always do you feel safe at home: Yes additional social history: ROS ROS ED ROS Narrative Constitutional: Denies fevers, chills, headaches, lightness, dizziness Eyes: Denies change in vision double vision blurry vision Cardiovascular: Claims chest tightness as noted above denies palpitations Respiratory: Denies coughing wheezing shortness of breath Abdomen: Denies abdominal pain nausea vomit diarrhea : Denies any urinary symptoms Neurological: Denies any numbness, weakness, tingling Musculoskeletal: Denies back pain Skin: Denies any rashes or lesions EXAM Physical Exam Narrative Exam Narrative: General: Patient was lying in bed rest comfortably did not appear to be acute distress Head: Atraumatic, normocephalic Eyes: PERRL bilaterally, EOMI bilaterally, no conjunctival injection noted Neck: Soft, supple, trachea midline Cardiovascular: Regular rate and rhythm no murmurs gallops rubs noted Respiratory: Clear to auscultation bilaterally Abdomen: Soft, nondistended, no tenderness palpation Extremities: +5/5 strength into the bilateral upper and lower extremities, radial pulses +2/4 in the bilateral extremities, no pedal edema on exam Neurological: Patient following commands knew that she was at [facility] years 2024 Skin: Warm, dry, tact no rashes or lesions noted Const Vital Signs: 12/01/24 01:26 12/01/24 01:26 12/01/24 01:30 Temperature 98.6 F Temperature Source Oral Pulse Rate 71 74 Respiratory Rate 16 18 Respiratory Effort Normal Blood Pressure 125/91 H 116/74 (more content not included)... Normal [facility] L499.0042on 12-01-2024 Trop T High Sen < 6 Normal <=14 [facility] Comment on above: Performed By: #### L 499.0042 #### [facility] [address] [place], [address] L501.4021on 12-01-2024 Trop T High Sen < 6 Normal <=14 [facility] Comment on above: Performed By: #### L 501.4021, L100.0100, L500.2500 #### [facility] [address] [place], [address] [facility] Telephone ([place]) LORNA DOW ([id number]) 1985 F Date Time Provider Department 11/28/24 USAMA HOLBROOK During your visit today, we recorded the following information about you: Allergies As of Date: 11/28/2024 Noted Allergy Reaction COD LIVER OIL 05/19/2020 7 - Swelling DESITIN (ZINC OXIDE) 01/21/2011 2 - Rash MORPHINE 01/21/2011 2 - Rash Date Reviewed: 11/23/2024 Reviewed by: Ruddy Garcia MA - Fully Assessed Prescriptions as of 11/28/2024 - L-Methylfolate 15 mg tab Take 1 tablet by mouth once daily. - fish oil/borage/flax/om3,6 ,9 1 (OMEGA 3-6-9 ORAL) Take by mouth once daily. - buPROPion XL (WELLBUTRIN XL) 150 mg 24 hr tablet Take 1 tablet by mouth once daily. Problem List As Of Date 11/28/2024 Noted Resolved Migraines [G43.909] 04/11/2012 Chronic headaches [R51.9, G89.29] 04/04/2013 Fatigue [R53.83] 04/04/2013 Emotional hypersensitivity [R45.86] 04/04/2013 Palpitations [R00.2] 09/05/2024 Precordial pain [R07.2] 09/05/2024 Encounter Status:Closed by USAMA DELGADO on 11/28/24 [facility] CNOVon 11-23-2024 CNOV Office Visit (OBGYWM ) LORNA DOW ([id number]) 1985 F Date Time Provider Department 11/23/24 2:45 PM DARLING LUCERO OBGYWM During your visit today, we recorded the following information about you: Blood pressure Weight Height Last Period 110/72 88.5 kg 1.854 m 10/29/24 Darling Lucero APRN.CNM 11/23/2024 3:45 PM Signed Lorna is a 39 year old who presents for an annual gynecologic exam without complaints. Seen last year for possible HSV outbreak. Denies any further vaginal or oral lesions. 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 History LMP: 10/29/2024 (Exact Date), Having periods Age at Menarche: 10 Age at First : Age at Menopause: Licensed Esthetician History Comments: Sexual Activity: Not Currently; Male Contraception: None Menstrual Tracking History Flowsheet Row Office Visit from 11/23/2024 in OB/Gynecology Period Cycle (Days) 25 Period Duration (Days) 7 Menstrual Flow Heavy FAMILY HISTORY Problem Relation Age of Onset Hypertension Father Cancer Mother cervical cancer Cervical Cancer Mother 30 Ovarian cancer Mother 55 Uterine Cancer Mother 30 Cancer Maternal Aunt cervical cancer No Ocular Disease No Family History SOCIAL HISTORY Social History Tobacco Use Smoking status: Former Current packs/day: 0.50 Types: Cigarettes Smokeless tobacco: Former Types: Chew Vaping Use Vaping status: current everyday user Substance Use Topics Alcohol use: Yes Comment: very rare Drug use: No REVIEW OF SYSTEMS Abdomen: No abdominal pain, nausea, vomiting, diarrhea, or constipation. No bloating, early satiety, indigestion, or increased flatulence. Bladder: No dysuria, gross hematuria, urinary frequency, urinary urgency, or incontinence. Breast: No breast lumps, nipple d/c, overlying skin changes, redness or skin retraction. Allergies and current medication updated:Yes SENSITIVE EXAM: The sensitive examination was discussed with the Patient or Patient's Authorized Char Conveyor Tender Cellar. As applicable, any other physician, advance practice provider, medical student, or other health professional student that will be observing or involved in the sensitive examination for educational or training purposes was discussed with the Patient or Authorized [employer] Con[employer]or T[employer] Cellar. The Patient or Authorized Char Conveyor Tender Cellar has agreed to proceed with the sensitive examination. (Sensitive examination includes inspection and/or palpation of the breasts, pelvis, prostate and anorectal regions). EXAM: BP 110/72 Ht 6' 1 (1.85m) Wt 195 lb (88.5kg) LMP 10/29/2024 BMI 25.73 kg/(m2). GENERAL: pleasant, female in no apparent distress HEENT: Normocephalic and atraumatic NECK: Supple and full range of motion DERMATOLOGY: Normal and without lesions BREAST: soft, non-tender, symmetric, no dominant mass, normal nipple-areolar complex, no lymphadenopathy, and fibrocystic changes CHEST: Normal inspiratory effort ABDOMEN: soft, non-tender, and no masses PELVIC: external genitalia normal, normal Bartholin's glands, urethra, [place]'s glands, no vulvar lesions, no cervical lesions, good vaginal support, physiologic discharge present, normal appearing perineal body and perianal region Cervix friable BIMANUAL: uterus normal size, shape and consistency, no adnexal masses, non-tender, and no cervical motion tenderness RECTOVAGINAL: deferred. NEURO: alert and oriented x3,exam grossly non-focal EXTREMITIES: normal ASSESSMENT/PLAN: 1) Health maintenance: Pap done with HPV. Mammogram starting age 40- order placed 2) Contraception: none. 3) STD screening: Declined STD check. 4) Follow up one year or sooner as needed Darling Lucero APRN.CNM Allergies As of Date: 11/23/2024 Noted Allergy Reaction COD LIVER OIL 05/19/2020 7 - Swelling DESITIN (ZINC OXIDE) 01/21/2011 2 - Rash MORPHINE 01/21/2011 2 - Rash Date Reviewed: 11/23/2024 Reviewed by: Ruddy Garcia MA - Fully Assessed Primary Visit Diagnosis:Encounter for gynecological examination (general) (routine) without abnormal findings [Z01.419] Other Visit Diagnoses:Screening for cervical cancer [Z12.4] Encounter for screening for human papillomavirus (HPV) [Z11.51] Encounter for screening mammogram for breast cancer [Z12.31] Dense breast tissue [R92.30] Order(s):PAP TEST [FTZ7416] Order #: [id number]. #:[id number] SCREENING W CARMELITA [[id number]] Order #: [id number] FUTURE Prescriptions a (more content not included)... [facility] HIGH RISK HUMAN PAPILLOMA JOHNNY (HPV), PCR FOR DETECTION AND GENOTYPINGon 11-23-2024 HPV 16 Ag Ql (Unsp spec) Not detected Normal [facility]ec [facility] Comment on above: Order Comment: Speci men Type: FLUID SPECIMEN Ordering Facility: [facility] Address: [address] [place] [address] Performed By: #### H PVHRT #### [facility] [facility] CLIA [id number] [address] [place] [address] [place] HPV 18 Ag Ql (Unsp spec) Not detected Normal Not detec [facility] Comment on above: Order Comment: Speci men Type: FLUID SPECIMEN Ordering Facility: [facility] Address: [address] [place] [address] Performed By: #### H PVHRT #### [facility] CLIA [id number] [address] [place] [address] [place] HPV 31+33+35+39+45+51+52+56+5 8+59+66+68 DNA DANIEL+probe Ql (Cvx) Not detected Normal Not [facility] Comment on above: Order Comment: Speci men Type: FLUID SPECIMEN Ordering Facility: [facility] Address: [address] [place] [address] Result Comment: High Risk HPV Other Type includes HPV types 31, 33, 35, 39, 45, 51, 52, 56, 58, 59, 66 and 68. Performed By: #### H PVHRT #### [facility] CLIA [id number] [address] [place] [address] [place] PAP TESTon 11-23-2024 ADEQUACY [facility] Comment on above: Order Comment: Speci men Type: FLUID SPECIMEN Ordering Facility: [facility] Address: [address] [place] [address] Result Comment: Sati sfactory for interpretation. Transformation zone present Performed By: #### L [id number] #### [facility] CLIA [id number] [address] [place] [place] [address] [place] CASE REPORT [facility] Comment on above: Order Comment: Speci men Type: FLUID SPECIMEN Ordering Facility: [facility] Address: [address] [place] [address] Result Comment: Gyne cologic Cytology Report Case: [id number] Authorizing Provider: Darling Lucero APRN.CNChristy Collected: 11/23/2024 03:27 PM Ordering Location: OB/Gynecology Received: 11/23/2024 04:18 PM First Screen: Master Garvin, CT, ASCP Specimen: Pap Test, ThinPrep, Cervix Performed By: #### L [id number] #### [facility] CLIA [id number] [address] [place], [place] [id number] [place] CLINICAL HISTORY, CYTOLOGY, CARDIAC RN Routine Exam [facility] Comment on above: Order Comment: Speci men Type: FLUID SPECIMEN Ordering Facility: [facility] Address: [address] [place] [address] Performed By: #### L [id number] #### [facility] CLIA [id number] [address] [place], [place] [id number] [place] FINAL PERFORMING LAB [facility] Comment on above: Order Comment: Speci men Type: FLUID SPECIMEN Ordering Facility: [facility] Address: [address] [place] [address] Result Comment: Tech nical component, residential door installer screening performed at: [facility], [address] [place] [address] [place] [address] CLIA: [id number] Diagnostic interpretation performed at: [facility], [address] [place] [address] [place] [address] CLIA# [id number] Blood Tester: Felipe Rendon MD Performed By: #### L [id number] #### [facility] CLIA [id number] [address] [place] [address] [place] INTERPRETATION, CYTOLOGY, CARDIAC RN [facility] Comment on above: Order Comment: Speci men Type: FLUID SPECIMEN Ordering Facility: [facility] Address: [address] [place] [address] Result Comment: Nega tive for intraepithelial lesion or malignancy. at 1357 EDT Performed By: #### L [id number] #### [facility] CLIA [id number] [address] [place] [address] [place] LMP 10/29/2024 [facility] Comment on above: Order Comment: Speci men Type: FLUID SPECIMEN Ordering Facility: [facility] Address: [address] [place] [address] Performed By: #### L [id number] #### [facility] CLIA [id number] [address] [place] [address] [place] PAP DISCLAIMER COMMENT The Pap Smear is a screening test for cervical cancer. False negative results occur with all screening tests, emphasizing the need for rescreening at recommended intervals, and clinical correlation. [facility] Comment on above: Order Comment: Speci men Type: FLUID SPECIMEN Ordering Facility: [facility] Address: [address] [place] [address] Performed By: #### L [id number] #### [facility] CLIA [id number] [address] [place] [address] [place] PAP ELECTRICAL SIGN SERVICER COMMENT This specimen has been analyzed by the FDA-approved [employer] System, which uses digital imaging and an enhanced artificial intelligence image analysis algorithm to identify vickers of interest on the microscopic slide, to assist the feather drying machine operator and pathologist in evaluating cells on ThinPrep Pap tests. Following analysis, vickers of interest on the microscopic slide selected by the algorithm are reviewed by a feather drying machine operator. If a sample requires hierarchical review, the pathologist will review the same vickers of interest selected by the algorithm prior to final interpretation. [facility] Comment on above: Order Comment: Glennyi pool Type: FLUID SPECIMEN Ordering Facility: [facility] Address: [address] [place] [address] Performed By: #### L [id number] #### [facility] CLIA [id number] [address] [place] [address] [place] CNPNon 11-01-2024 CNPN Telephone ([facility]) LORNA DOW ([id number]) 1985 F Date Time Provider Department 11/01/24 DARLING LUCERO [facility] During your visit today, we recorded the following information about you: Sara Alberto 11/01/2024 8:59 AM Signed Patient contacted us via my chart would like to schedule her yearly mammogram. Please enter order and forward to a scientific recruiter. Livia Funes RN 11/01/2024 9:08 AM Signed Patient will turn 40 on 2025. Has upcoming annual exam. Mammogram will be discussed at that time. Livia Funes RN Allergies As of Date: 11/01/2024 Noted Allergy Reaction COD LIVER OIL 05/19/2020 7 - Swelling DESITIN (ZINC OXIDE) 01/21/2011 2 - Rash MORPHINE 01/21/2011 2 - Rash Date Reviewed: 09/05/2024 Reviewed by: Dc Park MA - Fully Assessed Reason for Visit: Orders [681] Prescriptions as of 11/01/2024 - propranolol (INDERAL) 10 mg tablet 10 mg three times a day. NEEDED - fish oil/borage/flax/om3,6 ,9 1 (OMEGA 3-6-9 ORAL) Take by mouth once daily. - buPROPion XL (WELLBUTRIN XL) 150 mg 24 hr tablet Take 1 tablet by mouth once daily. - propranolol (INDERAL) 20 mg tablet Problem List As Of Date 11/01/2024 Noted Resolved Migraines [G43.909] 04/11/2012 Chronic headaches [R51.9, G89.29] 04/04/2013 Fatigue [R53.83] 04/04/2013 Emotional hypersensitivity [R45.86] 04/04/2013 Palpitations [R00.2] 09/05/2024 Precordial pain [R07.2] 09/05/2024 Encounter Status:Closed by LIVIA FUNES on 11/01/24 [facility] ECHOon 10-27-2024 CONCLUSIONS: - Technically difficult exam due to limited apical windows. - Exam indication: Palpitations - The left ventricle is normal in size. There is no left ventricular hypertrophy. Left ventricular systolic function is mildly decreased. EF = 50 5% (visual est.) Definity contrast used for endocardial border detection. Indeterminate left ventricular diastolic function due to inconsistent or technically suboptimal data. - The right ventricle is normal in size. Right ventricular systolic function is normal. - There are no significant valvular abnormalities. - The patient has not had a prior CC echocardiographic exam for comparison. * * * Final * * * [facility] Echocardi[facility] Report: Transthoracic Echo [facility] Date of service: 10/27/2024 12:38:43 PM [facility] Ordering physician: OMAR CRUZ Indication: Palpitations Technologist: Rachel Holbrook Interpreting physician: Beto Ponce MD PATIENT: Name: MISS LORNA DOW : 1985 Age: 39 years Gender: F Primary rhythm: sinus. Height: 182.90 cm BSA: 2.06 m Weight: 83.92 kg BMI: 25.1 kg/m Heart rate 90 bpm Blood pressure 115/77 mmHg Technically difficult exam due to limited apical windows. Color Doppler was utilized to interrogate the cardiac valves assessed and spectral Doppler was utilized to determine the flow velocities and pressure gradients reported in this exam. MEASUREMENTS: Value Indexed Normal Max aortic dimension 3.1 cm Ao < 3.8 LV ID (diastole) 4.1 cm (2D) 2.01 cm/m LV ID (systole) 2.6 cm (2D) 1.26 cm/m IVS, leaflet tips 1.1 cm (2D) Posterior wall thickness 0.8 cm (2D) Left ventricular mass 124 g (2D) 60 g/m LV end diastolic volume 69 ml (2D biplane) 33.5 ml/m 29<=EDVi<62 Ejection Fraction 50 % (visual est.) EF > 54 FINDINGS: LEFT VENTRICLE The left ventricle is normal in size. There is no left ventricular hypertrophy. Left ventricular systolic function is mildly decreased. Indeterminate left ventricular diastolic function due to inconsistent or technically suboptimal data. Mitral annular lateral E/e': 3.9. Mitral annular septal E/e': 5.2. Definity contrast used for endocardial border detection. Wall Motion: The entire anterior wall, entire lateral wall, entire septum, entire apex, and entire inferior wall are mildly hypokinetic. RIGHT VENTRICLE The right ventricle is normal in size. Right ventricular systolic function is normal. RV systolic tissue Doppler velocity is 12.0 cm/s. Tricuspid annular displacement is 2.6 cm. Estimated right ventricular systolic pressure is not reported due to an insufficient tricuspid regurgitation signal. Estimated right atrial pressure is not included as the IVC was not seen. LEFT ATRIUM Unable to reliably measure LA volume due to technical limitations. RIGHT ATRIUM Unable to reliably measure RA volume due to technical limitations. MITRAL VALVE The mitral valve leaflets are structurally normal. There is trace mitral valve regurgitation. The pressure half time is 46 msec. The peak mitral E/A ratio is 1.14. The average mitral E/e' ratio is 4.6. The mitral flow deceleration time is 160 msec. TRICUSPID VALVE The tricuspid valve leaflets are structurally normal. There is trace tricuspid valve regurgitation. AORTIC VALVE The aortic valve cusps are structurally normal. There is no aortic valve regurgitation. Tricuspid aortic valve. PULMONIC VALVE There is trace pulmonic valve regurgitation. There is no thickening. AORTA The visualized aorta is normal in size. Measurements - Sinus: 2.9 cm. Mid ascending aorta 3.1 cm. PULMONARY ARTERIES The pulmonary arteries are unseen or not interrogated. INTERATRIAL SEPTUM The interatrial septum is unseen or not interrogated. INTERVENTRICULAR SEPTUM There is normal motion of the interventricular septum. PERICARDIUM There is no pericardial effusion. There is an epicardial fat pad. [facility] Echocardiography Echocardiography Report: Transthoracic Echo [facility] Date of service: 10/27/2024 12:38:43 PM [facility] Ordering physician: OMAR CRZU Indication: Palpitations Technologist: Rachel Holbrook Interpreting physician: Beto Ponce MD PATIENT: Name: MISS LORNA DOW : 1985 Age: 39 years Gender: F Primary rhythm: sinus. Height: 182.90 cm BSA: 2.06 m Weight: 83.92 kg BMI: 25.1 kg/m Heart rate 90 bpm Blood pressure 115/77 mmHg Technically difficult exam due to limited apical windows. Color Doppler was utilized to interrogate the cardiac valves assessed and spectral Doppler was utilized to determine the flow velocities and pressure gradients reported in this exam. MEASUREMENTS: Value Indexed Normal Max aortic dimension 3.1 cm Ao < 3.8 LV ID (diastole) 4.1 cm (2D) 2.01 cm/m LV ID (systole) 2.6 cm (2D) 1.26 cm/m IVS, leaflet tips 1.1 cm (2D) Posterior wall thickness 0.8 cm (2D) Left ventricular mass 124 g (2D) 60 g/m LV end diastolic volume 69 ml (2D biplane) 33.5 ml/m 29<=EDVi<62 Ejection Fraction 50 % (visual est.) EF > 54 FINDINGS: LEFT VENTRICLE The left ventricle is normal in size. There is no left ventricular hypertrophy. Left ventricular systolic function is mildly decreased. Indeterminate left ventricular diastolic function due to inconsistent or technically suboptimal data. Mitral annular lateral E/e': 3.9. Mitral annular septal E/e': 5.2. Definity contrast used for endocardial border detection. Wall Motion: The entire anterior wall, entire lateral wall, entire septum, entire apex, and entire inferior wall are mildly hypokinetic. RIGHT VENTRICLE The right ventricle is normal in size. Right ventricular systolic function is normal. RV systolic tissue Doppler velocity is 12.0 cm/s. Tricuspid annular displacement is 2.6 cm. Estimated right ventricular systolic pressure is not reported due to an insufficient tricuspid regurgitation signal. Estimated right atrial pressure is not included as the IVC was not seen. LEFT ATRIUM Unable to reliably measure LA volume due to technical limitations. RIGHT ATRIUM Unable to reliably measure RA volume due to technical limitations. MITRAL VALVE The mitral valve leaflets are structurally normal. There is trace mitral valve regurgitation. The pressure half time is 46 msec. The peak mitral E/A ratio is 1.14. The average mitral E/e' ratio is 4.6. The mitral flow deceleration time is 160 msec. TRICUSPID VALVE The tricuspid valve leaflets are structurally normal. There is trace tricuspid valve regurgitation. AORTIC VALVE The aortic valve cusps are structurally normal. There is no aortic valve regurgitation. Tricuspid aortic valve. PULMONIC VALVE There is trace pulmonic valve regurgitation. There is no thickening. AORTA The visualized aorta is normal in size. Measurements - Sinus: 2.9 cm. Mid ascending aorta 3.1 cm. PULMONARY ARTERIES The pulmonary arteries are unseen or not interrogated. INTERATRIAL SEPTUM The interatrial septum is unseen or not interrogated. INTERVENTRICULAR SEPTUM There is normal motion of the interventricular septum. PERICARDIUM There is no pericardial effusion. There is an epicardial fat pad. CONCLUSIONS: - Technically difficult exam due to limited apical windows. - Exam indication: Palpitations - The left ventricle is normal in size. There is no left ventricular hypertrophy. Left ventricular systolic function is mildly decreased. EF = 50 5% (visual est.) Definity contrast used for endocardial border detection. Indeterminate left ventricular diastolic function due to inconsistent or technically suboptimal data. - The right ventricle is normal in size. Right ventricular systolic function is normal. - There are no significant valvular abnormalities. - The patient has not had a prior CC echocardiographic exam for comparison. * * * Final * * * [facility] [employer] [facility] Image : [id number] amicsSISUID [facility] CNOVon 09-05-2024 CNOV Office Visit (AGCARDPOB) LORNA DOW ([id number]) 1985 F Date Time Provider Department 09/05/24 2:20 PM OMAR CRUZ During your visit today, we recorded the following information about you: Pulse Respiration Blood pressure Weight 87/minute 18/minute 102/80 83.9 kg Height 1.829 m Dc Park MA 09/05/2024 5:15 PM Signed PATIENT COMPLAINS OF HAVING CHEST PAINS , SOB AND PALPITATIONS AND IT HAPPENS IF SHE IS JUST SITTING. 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 Dow is a 39 year old female seen in my office today for assessment management of palpitation associated with chest pain and shortness of breath Patient has been having recurrent episodes of sudden onset heart racing lasted some time seconds to few minutes associated with shortness of breath and chest discomfort Not induced by exertion happen at rest Patient had a Holter monitor many years ago and she was told was abnormal but she never follow-up with cardiology No prior cardiac history in the past She is on Inderal with no benefit controlling her palpitation Cardiac Risk Factors age (male over 45, female over 55), family history of CAD PAST MEDICAL HISTORY Diagnosis Date Chest tightness Dizzy Fatigue, unspecified type Irregular heartbeat Migraines Palpitations Shortness of breath PAST SURGICAL HISTORY Procedure Laterality Date PAST SURGICAL HISTORY OF 09/2021 D and C for growth that was inside of uterus FAMILY HISTORY Problem Relation Age of Onset Hypertension Father Cancer Mother cervical cancer Cancer Maternal Aunt cervical cancer No Ocular Disease No Family History Social History Tobacco Use Smoking status: Former Current packs/day: 0.50 Types: Cigarettes Smokeless tobacco: Former Types: Chew Vaping Use Vaping status: current everyday user Substance Use Topics Alcohol use: Yes Comment: occasional Drug use: No ALLERGIES Allergen Reactions Cod Liver Oil Swelling Desitin [Zinc Oxide] Rash Morphine Rash Medications: Current Outpatient Medications Medication Sig Dispense Refill propranolol (INDERAL) 10 mg tablet 10 mg three times a day. NEEDED fish oil/borage/flax/om3,6 ,9 1 (OMEGA 3-6-9 ORAL) Take by mouth once daily. buPROPion XL (WELLBUTRIN XL) 150 mg 24 hr tablet Take 1 tablet by mouth once daily. propranolol (INDERAL) 20 mg tablet (Patient not taking: Reported on 09/05/2024) No current facility-administered medications for this visit. Review of Systems Constitutional: Negative for chills, diaphoresis, fever, malaise/fatigue and weight loss. HENT: Negative for congestion, ear discharge, ear pain, hearing loss, nosebleeds, sinus pain, sore throat and tinnitus. Eyes: Negative for blurred vision, double vision, photophobia, pain, discharge and redness. Respiratory: Negative for cough, hemoptysis, sputum production, shortness of breath, wheezing and stridor. Cardiovascular: Negative for chest pain, palpitations, orthopnea, claudication, leg swelling and PND. Gastrointestinal: Negative for abdominal pain, blood in stool, constipation, diarrhea, heartburn, melena, nausea and vomiting. Genitourinary: Negative for dysuria, flank pain, frequency, hematuria and urgency. Musculoskeletal: Negative for back pain, falls, joint pain, myalgias and neck pain. Skin: Negative for itching and rash. Neurological: Negative for dizziness, tingling, tremors, sensory change, speech change, focal weakness, seizures, loss of consciousness, weakness and headaches. Endo/Heme/Allergies: Negative for environmental allergies and polydipsia. Does not bruise/bleed easily. Psychiatric/Behaviora l: Negative for depression, hallucinations, memory loss, substance abuse and suicidal ideas. The patient is not nervous/anxious and does not have insomnia. Physical Examination: Vitals:BP 102/80 Pulse 87 Resp 18 Ht 6' 0 (1.83m) Wt 185 lb (83.9kg) SpO2 98% LMP 07/29/2023 BMI 25.08 kg/(m2). BP w/Orthostatic Vitals Date and Time Orthostatic BP Orthostatic Pulse BP Pulse BP Position BP Site BP Cuff Size 09/05/24 1431 -- -- 102/80 87 Sitting Left Arm Large Adult Peak Flow Date and Time PF Resp 09/05/24 143 -- 18 Last 2 Encounter Wt Readings: Date: Wt: 09/05/2024 185 lb (83.9 kg) 07/31/2023 185 lb (83.9 kg) Physical Exam Constitutional: General: She is not in acute distress. Appearance: She is not diaphoretic. HENT: Head: Normocephalic and atraumatic. Right Ear: External ear normal. Left Ear: External ear normal. Nose: Nose normal. Mouth/Throat: Pharynx: Oropharynx is clear. Eyes: (more content not included)... [facility] Chest PA and Lateralon 12-22 Chest PA and Lateral [facility] Imaging Services [address] [place], [place] [id number] Chest PA and Lateral MR#: [id number] Acct: [id number] Name: LORNA DOW Rep #: [id number] : 1985 F 38 From: Escobar villanueva MD PCP: [facility] Status: REG ER Study: Chest PA and Lateral Date of Exam: 12/23/23 Exam# [id number] Ordering Dr: Moris Solis DO [id number] INDICATION: cough EXAMINATION/TECHNIQUE : X-RAY - XR Chest 2 Views COMPARISON: No relevant prior comparison study available __ FINDINGS: LINES/DEVICES: None. LUNGS: The lungs are well expanded. No consolidation, edema or effusion. No pneumothorax. MEDIASTINUM AND CARDIOVASCULAR STRUCTURES: Cardiac silhouette not enlarged. Central airways and mediastinal contour are unremarkable. BONES AND SOFT TISSUES: No acute abnormality. RAD/Chest PA and Lateral IMPRESSION: No acute pulmonary finding. Electronically Signed: Escobar Lua MD at 23:02 EDT , CC: Moris Solis DO; [facility] Swahili Teacher: Signed [facility] Emergency Department Summary on 12-23-2023 Emergency Department Summary [facility] Medical Records Department [address] [place] [address] Emergency Department Summary 12/23/23 MR#: [id number] Acct: [id number] Name: LORNA DOW Rep #: [id number] : 1985 38 From: Moris Solis DO PCP: [facility] Status:REG ER Location: ED HPI History of Present Illness Chief Complaint: Cough Informant: patient Narrative Narrative: Patient is a 38-year-old female with past medical history of bipolar disorder and nicotine use. She states for the past 3 weeks she has had mild congestion and cough. She denies any known sick contacts or history of asthma COPD or emphysema. She states that the symptoms do not seem to be improving and she is concerned she may have developed pneumonia and secondary to this comes in for evaluation. [facility] Medical History (Updated 12/23/23 @ 23:[address] Moris Solis, ) Anxiety Loose, teeth Bipolar disorder Injury of back History of ulceration Smoker Asthma Shortness of breath on exertion Chest pain History of edema History of irregular heartbeat Abnormal uterine bleeding (AUB) Anemia Ovarian cyst Migraines Scoliosis Home Medications ???Medication ???Instructions ???Recorded ???Last Taken ???Type ergocalciferol (vitamin D2) 1,250 1,250 mcg PO QWEEK 08/19/21 Unknown History mcg (50,000 unit) capsule naproxen sodium 220 mg capsule 220 mg PO BID PRN pain 09/22/21 Unknown History (Aleve) propranolol 10 mg tablet 10 mg PO ONCE 09/22/21 Unknown History bupropion HCl 150 mg 24 hr tablet, 150 mg PO DAILY 01/27/23 Unknown History extended release azithromycin 250 mg tablet See Rx Instructions PO .COMPLEX #6 12/23/23 Unknown Rx tabs benzonatate 200 mg capsule 200 mg PO TID PRN cough #30 caps 12/23/23 Unknown Rx prednisone 20 mg tablet 40 mg (2 x 20 mg) PO DAILY 5 days 12/23/23 Unknown Rx #10 tabs Allergy/AdvReac Type Severity Reaction Status Date / Time cod liver oil (From GoPollGoitin) AdvReac Swelling Verified 12/23/23 22:23 morphine AdvReac Rash Verified 12/23/23 22:23 zinc oxide (From Desitin) AdvReac Swelling Verified 12/23/23 22:23 Family History Mother Cervical cancer Parathyroid abnormality Hyperlipidemia Father Heart disease Gout Grandfather Lung disease Heart disease Surgical History H/O dilation and curettage Social History household members: family current occupational status: employed current occupation: [employer] history of recent travel: Yes sexually active: No Smoking Status: Current every day smoker tobacco type: e-cigarettes alcohol intake: current alcohol intake frequency: holidays/special occasions only substance use type: does not use what type of physical activity do you participate in: walking frequency: 5-6 times per week seatbelt use: always do you feel safe at home: Yes additional social history: ROS ROS ED Constitutional Constitutional ED: Denies chills or fever(s) ENT ENT ED: Reports rhinorrhea and sore throat Cardiovascular Cardiovascular: Denies chest pain Respiratory/Chest Respiratory/Chest: Reports cough; Denies dyspnea Gastrointestinal Gastrointestinal: Denies abdominal pain, diarrhea, nausea or vomiting Genitourinary Genitourinary ED: Denies dysuria Musculoskeletal Musculoskeletal: Denies myalgias Integumentary Denies rash Neurologic Neurologic: Denies headache(s) Hematologic/Lymphatic Hematologic/Lymphatic : Denies easy bleeding or easy bruising EXAM Physical Exam Const Vital Signs: 12/23/23 22:21 12/23/23 22:32 Temperature 98.4 F Temperature Source Temporal Pulse Rate 85 Respiratory Rate 18 Respiratory Effort Normal Respiratory Depth Normal Respiratory Pattern Normal Blood Pressure 120/86 H Blood Pressure Mean 97 Pulse Ox 98 Oxygen Delivery Method Room Air Room Air Positive well nourished and well developed General Appearance ED: well developed; Negative for pallor HEENT HEENT Narrative: Bilateral TMs are retracted but show no secondary changes to suggest infection Nasal mucosa is hyperemic and boggy with enlarged inferior nasal turbinates Posterior pharynx displays cobblestoning consistent with sinus drainage without airway edema or compromise No secondary findings in the posterior pharynx to suggest infection Eyes PERRL and EOMs intact bilaterally General Eye ED: Negative for pale conjunctiva or scleral icterus Neck supple Neck Narrative: No nuchal rigidity or meningeal signs noted Chest Wall palpation of chest normal Resp normal respiratory effort Resp Narrative: Breath sounds are slight diminished thro (more content not included)... Normal [facility] Absolute lymphocyte countOrd ered By: Nikia Lal on 05-12-2023 Lymphocytes Auto (Unsp spec) [#/Vol] 1.56 10*3/uL 0.83-4.51 [facility] Basophil percentageOrdered B y: Nikia Lal on 05-12-2023 Basophils/100 WBC (Bld) 1.1 % 0-1 [facility] Eosinophils/100 WBC (Bld) 1.5 % 0-5 [facility] Neutrophils (Bld) [#/Vol] 3.4 10*3/uL 2.0-7.7 [facility] Neutrophils/100 WBC (Bld) 61.9 % 47-70 [facility] WBC (Bld) [#/Vol] 5.4 10*3/uL 4.4-11.0 [facility] Blood erythrocytes count (nu mber/volume)Ordered By: Nikia Lal on 05-12-2023 RBC (Bld) [#/Vol] 5.07 10*6/uL 4.2-5.4 [facility] Blood hemoglobin measurement (mass/volume)Ordered By: Nikia Lal on 05-12-2023 Hemoglobin (Bld) [Mass/Vol] 13.0 g/dL 12.0-15.0 [facility] Blood lymphocytes/100 leukoc ytesOrdered By: Nikia Lal on 05-12-2023 Lymphocytes/100 WBC (Bld) 28.7 % 19-41 [facility] Blood monocytes/100 leukocyt esOrdered By: Nikia Lal on 05-12-2023 Monocytes/100 WBC (Bld) 6.4 % 0-10 [facility] Blood platelet mean volumeOr dered By: Nikia Lal on 05-12-2023 Platelet mean volume (Bld) [Entitic vol] 11.8 fL 6.2-12.0 [facility] Determination of erythrocyte mean corpuscular volume (MCV)Ordered By: Nikia Lal on 05-12-2023 MCV (RBC) [Entitic vol] 82.1 fL 81-99 [facility] Hematocrit Auto (Bld) [Volum e fraction]Ordered By: Nikia Lal on 05-12-2023 Hematocrit (Bld) [Volume fraction] 41.6 % 37-47 [facility] Laboratory - Chemistry and C hemistry - challengeOrdered By: Nikia Lal on 05-12-2023 Free T4 [Mass/Vol] 1.13 ng/dL 0.76-1.46 [facility] Laboratory - Hematology and Cell countsOrdered By: Nikiamelchor Lal on 05-12-2023 Erythrocyte distribution width (RBC) [Entitic vol] 41.1 fL 35.1-43.9 [facility] Erythrocyte distribution width (RBC) [Ratio] 13.9 % 11.6-14.6 [facility] Immature granulocytes/100 WBC (Bld) 0.400 % 0.0-0.9 [facility] Comment on above: IG% - Immature Granu locytes (promyelocytes, myelocytes and metamyelocytes) > 1% indicates that a LEFT SHIFT is Present. MCH (RBC) [Entitic mass] 25.6 pg 27.0-32.0 [facility] Nucleated RBC/100 WBC (Bld) [Ratio] 0 % 0-5 [facility] MCHC Auto (RBC) [Mass/Vol]Or dered By: Nikia Lal on 05-12-2023 MCHC (RBC) [Mass/Vol] 31.3 g/dL 32-36 [facility] No Panel InformationOrdered By: Nikia Lal on 05-12-2023 Herpes Simplex Virus I IgG Antibody < 0.91 index 0.00-0.90 [facility] Comment on above: Negative <0.91 Equiv ocal 0.91 - 1.09 Positive >1.09 Note: Negative indicates no antibodies detected to HSV-1. Equivocal may suggest early infection. If clinically appropriate, retest at later date. Positive indicates antibodies detected to HSV-1. Follicle Stimulating Hormone 11.4 mIU/mL [facility] Comment on above: NORMAL REFERENCE RAN GES FEMALE FOLLICULAR 2.3 - 12.6 mIU/mL MID-CYCLE PEAK 5.2 - 17.5 mIU/mL LUTEAL 1.7 - 12.9 mIU/mL POST-MENOPAUSAL ON MHT 5.9 - 72.8 mIU/mL NOT ON MHT 12.7 - 132.2 mlU/mL MALE 0.7 - 10.8 mIU/mL Thyroid Stimulating Hormone (TSH) 0.54 uIU/mL 0.358-3.74 [facility] Platelets bldOrdered By: Nikia cunningham Lukasz on 05-12-2023 Platelets (Bld) [#/Vol] 270 10*3/uL 150-450 [facility] Serum herpes simplex virus 2 antibody assay by immunoassay (units/volume)Ordered By: Nikia Lal on 05-12-2023 HSV 2 Ab IA Qn (S) 11.30 index 0.00-0.90 [facility] Comment on above: Negative <0.91 Equiv ocal 0.91 - 1.09 Positive >1.09 HSV-2 Antibody Interpretation: Negative indicates no detectable antibodies to HSV-2 were found. If recent exposure is suspected, retest in 4-6 weeks. Equivocal samples should be retested in 4-6 weeks. Positive indicates the presence of detectable IgG antibody to HSV-2. False positive results may occur. Repeat testing, or testing by a different method, may be indicated in some settings (e.g. patients with low likelihood of HSV infection). If clinically appropriate, retest 4-6 weeks later.Performed at: [facility] [address] [id number] Director: Berny Baldwin PhD, Phone: [phone] Serum or plasma estradiol (E 2) measurement (mass/volume)Ordered By: Nikia Lal on 05-12-2023 E2 [Mass/Vol] 38.7 pg/mL [facility] Comment on above: NORMAL REFERENCE RAN GES FEMALE FOLLICULAR 21.4 - 164.8 pg/mL MID-CYCLE PEAK 49.9 - 367.2 pg/mL LUTEAL 40.2 - 259.0 pg/mL POST-MENOPAUSAL ON MHT <11.0 - 462.1 pg/mL NOT ON MHT <11.0 - 58.3 pg/mL MALE <11.0 - 52.5 pg/mL NOTE:[employer] HAS CONFIRMED THE DRUG FULVETRANT (FASLODEX) MAY CAUSE FALSELY ELEVATED ESTRADIOL RESULTS WHEN USING THIS TEST METHOD. IF PATIENT IS TAKING FULVESTRANT AN ALTERNATIVE METHOD SHOULD BE USED TO DETERMINE ESTRADIOL CONCENTRATION. Chlamydia trachomatis rRNA d etection by probe and target amplification methodOrdered By: Nikia Lal on 05-05-2023 C. trachomatis rRNA DANIEL+probe Ql (Unsp spec) Negative Negative [facility] Laboratory - Microbiology an d Antimicrobial susceptibilityOrdered By: Nikia Lal on 05-05-2023 N. gonorrhoeae DNA DANIEL+probe Ql (Unsp spec) Negative Negative [facility] Comment on above: Performed at: =[facility] [employer] [address] [id number] Director: Charo Hylton MD, Phone: [phone] No Panel Informationon 05-05 POC Trichomonas (Rapid) Negative [facility] Basophil percentageOrdered B y: Corbin Sanchez on 05-04-2023 Basophil percentage 0-5 SEEN /hpf 0-5 [facility] Bilirubin Test strip Ql (U)O rdered By: Corbin Sanchez on 05-04-2023 Bilirubin Ql (U) Negative Negative [facility] Culture, urineOrdered By: Eliceo Sanchez on 05-04-2023 Bacteria identified Cx Nom (U) Enterococcus faecalis [facility] Bacteria identified Cx Nom (U) Enterococcus faecalis [facility] Herpes simplex virus (HSV) c ulture with typingOrdered By: Corbin Sanchez on 05-04-2023 HSV identified Org specific cx Nom (Unsp spec) Negative . [facility] Comment on above: Performed at: [facility] [employer] [address] [id number] Director: Berny Baldwin PhD, Phone: [phone] Ketones Test strip Ql (U)Ord ered By: Corbin Sanchez on 05-04-2023 Ketones Ql (U) Negative Negative [facility] Mucus LM Ql (Urine sed)Order ed By: Corbin Sanchez on 05-04-2023 Mucus Ql (Urine sed) 0 SEEN /hpf [facility] Nitrite Test strip Ql (U)Ord ered By: Corbin Sanchez on 05-04-2023 Nitrite Ql (U) Negative Negative [facility] Protein Test strip Ql (U)Ord ered By: Corbin Sanchez on 05-04-2023 Protein Ql (U) 15 mg/dl Negative [facility] Serum Treponema species anti body detectionOrdered By: Corbin Sanchez on 05-04-2023 Treponema sp Ab Ql (S) Non-Reactive [facility] Squamous epithelial cells de tection in urine sediment by light microscopyOrdered By: Corbin Sanchez on 05-04-2023 Epithelial cells.squamous LM Ql (Urine sed) 0-5 SEEN /hpf 5-10 [facility] Urine blood detectionOrdered By: Corbin Sanchez on 05-04-2023 RBC Ql (U) Negative Negative [facility] RBC Ql (U) 0 SEEN /hpf 0-5 [facility] Urine clarityOrdered By: Rene Sanchez on 05-04-2023 Clarity (U) Clear Clear [facility] Urine color determinationOrd ered By: Corbin Sanchez on 05-04-2023 Color (U) Yellow Yellow [facility] Urine glucose detectionOrder ed By: Corbin Sanchez on 05-04-2023 Glucose Ql (U) Normal mg/dl Normal [facility] Urine leukocyte esterase det ection by dipstickOrdered By: Corbin Sanchez on 05-04-2023 Leukocyte esterase Test strip Ql (U) 25 /ul Negative [facility] Urine pHOrdered By: Corbin cotto on 05-04-2023 pH (U) 5.0 [pH] 5.0 - 8.0 [facility] Urine sediment bacteria coun t by microscopy (number/high power field)Ordered By: Corbin Sanchez on 05-04-2023 Bacteria LM.HPF (Urine sed) [#/Area] RARE /hpf None Seen [facility] Urine specific gravity measu rementOrdered By: Corbin Sanchez on 05-04-2023 Specific gravity (U) [Rel density] 1.015 1.002-1.030 [facility] Urobilinogen Auto test strip Ql (U)Ordered By: Corbin Sanchez on 05-04-2023 Urobilinogen Ql (U) Normal mg/dl Normal [facility] XR CHEST 2V FRONTAL/LATon [facility] Basophil percentageOrdered B y: Sam Weathers on 01-27-2023 Chloride [Moles/Vol] 109 mmol/L 98-107 [facility] Glucose [Mass/Vol] 66 mg/dL 74-106 [facility] Potassium [Moles/Vol] 3.4 mmol/L 3.5-5.1 [facility] Sodium [Moles/Vol] 141 mmol/L 136-145 [facility] Laboratory - Chemistry and C hemistry - challengeOrdered By: Samqeu Weathers on 01-27-2023 CO2 [Moles/Vol] 26.0 mmol/L 21.0-32.0 [facility] Urea nitrogen/Creatinine [Mass ratio] 10.3 mg/mg 10- [facility] No Panel InformationOrdered By: Sam Weathers on 01-27-2023 Estimated Creatinine Clearance Calc 91.64 ml/min [facility] Estimated GFR (MDRD) Amer 83 mL/min >60 [facility] Comment on above: GFR Calc Estimated GFR (MDRD) Non-Af Amer 69 mL/min >60 [facility] Comment on above: Non- GFR Calc Serum or plasma calcium juana urement (mass/volume)Ordered By: Sam Weathers on 01-27-2023 Calcium [Mass/Vol] 8.6 mg/dL 8.5-10.1 [facility] Serum or plasma creatinine m easurement (mass/volume)Ordered By: Sam Weathers on 01-27-2023 Creatinine [Mass/Vol] 0.97 mg/dL 0.55-1.02 [facility] Comment on above: The validity of the calculated GFR & GFRAA in patients over 70 years has not been determined. Clinical correlation is essential. Serum or plasma urea nitroge n measurement (mass/volume)Ordered By: Sam Weathers on 01-27-2023 Urea nitrogen [Mass/Vol] 10 mg/dL 7-18 [facility] Thin prep Papanicolaou smear with manual screeningOrdered By: Samque Weathers on 01-27-2023 Thin prep Papanicolaou smear with manual screening 6 5-15 [facility] Serum or plasma choriogonado tropin detectionOrdered By: FADY OSORIO on 08-21-2022 HCG ( test) Ql < 1 mIU/mL <4 [facility] Comment on above: hCG levels with Gest ational AgeGestational Age hCG mIU/mL (IU/L)0.2 - 1 week 5 - 501-2 weeks 50 - 5002-3 weeks 100 - 68142-6 weeks 500 - 668034-0 weeks 1000 - 699164-8 weeks 15001 - 100,0006-8 weeks 68558 - 200,0002-3 months 52810 - 100,000 Influenza virus A and B RNA and SARS-CoV-2 (COVID-19) N gene panel DANIEL+probe (Resp)on 07-09-2022 FLUAV RNA DANIEL+probe Ql (Unsp spec) Positive Abnormal Negative for Influenza A by RT-PCR [facility] FLUBV RNA DANIEL+probe Ql (Unsp spec) Negative Negative for Influenza B by RT-PCR [facility] SARS-CoV-2 (COVID-19) RNA DANIEL+probe Ql (Resp) SARS-CoV-2 (Agent of COVID-19) Not Detected by RT-PCR or equivalent method. Not Detected [facility] XR CHEST 2V FRONTAL/LATon [facility] XR Chest PA and Lateralon IMPRESSION: No evidence of acute cardiopulmonary disease. Swahili Teacher: PSCJohan Transcribe Date/Time: Jul 08 2022 7:59P Dictated by : RACHEL QUEZADA MD This examination was interpreted and the report reviewed and electronically signed by: RACHEL QUEZADA MD on Jul 08 2022 8:00PM [facility] DIVISION OF RADIOLOGY * * *Final Report* * * DATE OF EXAM: Jul 08 2022 7:29PM WOX 5291 - XR CHEST 2V FRONTAL/LAT / PROCEDURE REASON: Acute cough * * * * Physician Interpretation * * * * EXAMINATION: CHEST RADIOGRAPH (2 VIEW FRONTAL & LATERAL) CLINICAL HISTORY: Acute cough MQ: XC2_6 EXAM DATE/TIME: 07/08/2022 7:29 PM COMPARISON: None available. RESULT: Lines, tubes, and devices: None. Lungs and pleura: No consolidation. No lung mass. No pleural effusion. No pneumothorax. Cardiomediastinal silhouette: Normal cardiomediastinal silhouette. Bones and soft tissues: Mild pectus excavatum deformity. Visualized portions of the bony thorax appear intact. There is a slight levocurvature of the thoracic spine. DIVISION OF RADIOLOGY Provider, Cece sim [place] - 07/08/2022 * * *Final Report* * * DATE OF EXAM: Jul 08 2022 7:29PM WOX 5291 - XR CHEST 2V FRONTAL/LAT / PROCEDURE REASON: Acute cough * * * * Physician Interpretation * * * * EXAMINATION: CHEST RADIOGRAPH (2 VIEW FRONTAL & LATERAL) CLINICAL HISTORY: Acute cough MQ: XC2_6 EXAM DATE/TIME: 07/08/2022 7:29 PM COMPARISON: None available. RESULT: Lines, tubes, and devices: None. Lungs and pleura: No consolidation. No lung mass. No pleural effusion. No pneumothorax. Cardiomediastinal silhouette: Normal cardiomediastinal silhouette. Bones and soft tissues: Mild pectus excavatum deformity. Visualized portions of the bony thorax appear intact. There is a slight levocurvature of the thoracic spine. IMPRESSION IMPRESSION: No evidence of acute cardiopulmonary disease. Swahili Teacher: PSCB Transcribe Date/Time: Jul 08 2022 7:59P Dictated by : RACHEL QUEZADA MD This examination was interpreted and the report reviewed and electronically signed by: RACHEL QUEZADA MD on Jul 08 2022 8:00PM EST [facility] Radiology Study observation (narrative) Dave yanez [facility] XR Chest PA and LateralOrder ed By: [facility] Provider on 07-08-2022 [facility] Basophil percentageOrdered B y: Brandie Reeder on 06-17-2022 Chloride [Moles/Vol] 109 mmol/L 98-107 [facility] Glucose [Mass/Vol] 91 mg/dL 74-106 [facility] Potassium [Moles/Vol] 3.9 mmol/L 3.5-5.1 [facility] Sodium [Moles/Vol] 139 mmol/L 136-145 [facility] WBC (Bld) [#/Vol] 7.6 10*3/uL 4.4-11.0 [facility] Blood erythrocytes count (nu mber/volume)Ordered By: Brandie Reeder on 06-17-2022 RBC (Bld) [#/Vol] 5.31 10*6/uL 4.2-5.4 [facility] Blood hemoglobin measurement (mass/volume)Ordered By: Brandie Reeder on 06-17-2022 Hemoglobin (Bld) [Mass/Vol] 12.5 g/dL 12.0-15.0 [facility] Blood platelet mean volumeOr dered By: Brandie Reeder on 06-17-2022 Platelet mean volume (Bld) [Entitic vol] 12.1 fL 6.2-12.0 [facility] Determination of erythrocyte mean corpuscular volume (MCV)Ordered By: Brandie Reeder on 06-17-2022 MCV (RBC) [Entitic vol] 78.0 fL 81-99 [facility] Hematocrit Auto (Bld) [Volum e fraction]Ordered By: Brandie Reeder on 06-17-2022 Hematocrit (Bld) [Volume fraction] 41.4 % 37-47 [facility] Iron measurement (mass/mass) Ordered By: Brandie Reeder on 06-17-2022 Iron (Unsp spec) [Mass/Mass] 24 ug/dL 50-170 [facility] Laboratory - Chemistry and C hemistry - challengeOrdered By: Brandie Reeder on 06-17-2022 CO2 [Moles/Vol] 27.0 mmol/L 21.0-32.0 [facility] Urea nitrogen/Creatinine [Mass ratio] 12.3 mg/mg 10-20 [facility] Laboratory - Hematology and Cell countsOrdered By: Brandie Reeder on 06-17-2022 Erythrocyte distribution width (RBC) [Entitic vol] 44.7 fL 35.1-43.9 [facility] Erythrocyte distribution width (RBC) [Ratio] 15.9 % 11.6-14.6 [facility] MCH (RBC) [Entitic mass] 23.5 pg 27.0-32.0 [facility] MCHC Auto (RBC) [Mass/Vol]Or dered By: Brandie Reeder on 06-17-2022 MCHC (RBC) [Mass/Vol] 30.2 g/dL 32-36 [facility] No Panel InformationOrdered By: Brandie Reeder on 06-17-2022 Estimated GFR (MDRD) Amer 83 mL/min >60 [facility] Comment on above: GFR Calc Estimated GFR (MDRD) Non-Af Amer 68 mL/min >60 [facility] Comment on above: Non- GFR Calc Thyroid Stimulating Hormone (TSH) 1.57 uIU/mL 0.358-3.74 [facility] Total Iron Binding Capacity 402 ug/dL 250-450 [facility] Platelets bldOrdered By: Jessica Reeder on 06-17-2022 Platelets (Bld) [#/Vol] 227 10*3/uL 150-450 [facility] Serum or plasma calcium juana urement (mass/volume)Ordered By: Brandie Reeder on 06-17-2022 Calcium [Mass/Vol] 8.5 mg/dL 8.5-10.1 [facility] Serum or plasma creatinine m easurement (mass/volume)Ordered By: Brandie Reeder on 06-17-2022 Creatinine [Mass/Vol] 0.98 mg/dL 0.55-1.02 [facility] Comment on above: The validity of the calculated GFR & GFRAA in patients over 70 years has not been determined. Clinical correlation is essential. Serum or plasma iron saturat ion measurement (mass fraction)Ordered By: Brandie Reeder on 06-17-2022 Iron saturation [Mass fraction] 6.0 % 15.0-55.0 [facility] Serum or plasma urea nitroge n measurement (mass/volume)Ordered By: Brandie Reeder on 06-17-2022 Urea nitrogen [Mass/Vol] 12 mg/dL 7-18 [facility] Thin prep Papanicolaou smear with manual screeningOrdered By: Brandie Reeder on 06-17-2022 Thin prep Papanicolaou smear with manual screening 3 5-15 [facility] Whole blood hemoglobin A1c/t otal hemoglobin ratio (mass fraction)Ordered By: Brandie Reeder on 06-17-2022 HbA1c (Bld) [Mass fraction] 5.5 % 3.8-5.6 [facility] Comment on above: Normal < 5.7 % Predi abetic 5.7 - 6.4 % Diabetic >or= 6.5 % Please note range changes. OCT MACULA CIRRUS OU (BOTH E YES) [facility] Vital Signs Date Time Vital Sign Value Performing Clinician Facility 01-02-2025 19:50-0400 Body mass index (BMI) [Ratio] 26.56 kg/m2 Lee Winkler APRN.SCHEDULE SUPERVISOR Work Phone: [facility] 01-02-2025 19:50-0400 Body temperature 99.3 [degF] Lee Winkler APRN.SCHEDULE SUPERVISOR Work Phone: [facility] 01-02-2025 19:50-0400 Body weight 91.3 kg Lee Winkler APRN.SCHEDULE SUPERVISOR Work Phone: [facility] 01-02-2025 19:50-0400 Diastolic blood pressure 92 mm[Hg] Lee Winkler APRN.SCHEDULE SUPERVISOR Work Phone: [facility] 01-02-2025 19:50-0400 Heart rate 94 /min Lee Winkler APRN.SCHEDULE SUPERVISOR Work Phone: [facility] 01-02-2025 19:50-0400 Respiratory rate 18 /min Lee Winkler APRN.SCHEDULE SUPERVISOR Work Phone: [facility] 01-02-2025 19:50-0400 SaO2% (BldA) [Mass fraction] 98 % Lee Winkler APRN.SCHEDULE SUPERVISOR Work Phone: [facility] 01-02-2025 19:50-0400 Systolic blood pressure 148 mm[Hg] Lee Winkler APRN.SCHEDULE SUPERVISOR Work Phone: [facility] 11-23-2024 15:02-0400 Body height 185.4 cm Darling Lucero APRN.CNM Work Phone: [facility] 11-23-2024 15:02-0400 Body mass index (BMI) [Ratio] 25.73 kg/m2 Darling Lucero APRN.CNM Work Phone: [facility] 11-23-2024 15:02-0400 Body weight 88.45 kg Darling Lucero APRN.CNM Work Phone: [facility] 11-23-2024 15:02-0400 Diastolic blood pressure 72 mm[Hg] Darling Lucero APRN.CNM Work Phone: [facility] 11-23-2024 15:02-0400 Systolic blood pressure 110 mm[Hg] Darling Lucero [employer].CNM Work Phone: [facility] 09-05-2024 14:31-0500 Body height 182.9 cm Omar Cruz MD Work Phone: [facility] 09-05-2024 14:31-0500 Body mass index (BMI) [Ratio] 25.09 kg/m2 Omar Cruz MD Work Phone: [facility] 09-05-2024 14:31-0500 Body weight 83.92 kg Omar Cruz MD Work Phone: [facility] 09-05-2024 14:31-0500 Diastolic blood pressure 80 mm[Hg] Omar Cruz MD Work Phone: [facility] 09-05-2024 14:31-0500 Heart rate 87 /min Omra Cruz MD Work Phone: [facility] 09-05-2024 14:31-0500 Respiratory rate 18 /min Omar Cruz MD Work Phone: [facility] 09-05-2024 14:31-0500 SaO2% (BldA) [Mass fraction] 98 % Omar Cruz MD Work Phone: [facility] 09-05-2024 14:31-0500 Systolic blood pressure 102 mm[Hg] Omar Cruz MD Work Phone: [facility] 05-19-2023 06:55-0500 Body weight 83.1 kg Onedya Aldrich APRN.SCHEDULE SUPERVISOR Work Phone: [facility] 05-19-2023 06:55-0500 Diastolic blood pressure 60 mm[Hg] Oneyda Aldrich APRN.SCHEDULE SUPERVISOR Work Phone: [facility] 05-19-2023 06:55-0500 Systolic blood pressure 100 mm[Hg] Oneyda Aldrich APRN.SCHEDULE SUPERVISOR Work Phone: [facility] 05-12-2023 11:13-0400 Body height 187.96 cm [facility] Work Phone: 2([phone])812-332297 [place] [address] 05-12-2023 11:07-0400 Body mass index (BMI) [Ratio] 24 kg/m2 [facility] Work Phone: 3(236)136-614897 [place] [address] 05-12-2023 11:07-0400 Body weight 85.04 kg [facility] Work Phone: 9([phone])085-425097 [place] [address] 05-12-2023 11:07-0400 Diastolic blood pressure 70 mm[Hg] [facility] Work Phone: 6(637)970-829597 [place] [address] 05-12-2023 11:07-0400 Systolic blood pressure 126 mm[Hg] [facility] Work Phone: 7(469)450-503797 [place] [address] 05-05-2023 13:12-0400 Body height 187.96 cm [facility] Work Phone: 2([phone])435-644897 [place] [address] 05-05-2023 13:07-0400 Body mass index (BMI) [Ratio] 23.6 kg/m2 [facility] Work Phone: 2(088)021-885097 [place] [address] 05-05-2023 13:07-0400 Body weight 83.51 kg [facility] Work Phone: 4(326)409-120197 [place] [address] 05-05-2023 13:07-0400 Diastolic blood pressure 70 mm[Hg] [facility] Work Phone: 9(107)501-067597 [place] [address] 05-05-2023 13:07-0400 Systolic blood pressure 110 mm[Hg] [facility] Work Phone: 3(075)595-655197 [place] [address] 05-04-2023 01:59-0400 Heart rate 67 /min [facility] Work Phone: 2([phone])441-170197 [place] [address] 05-04-2023 01:59-0400 Respiratory rate 16 /min [facility] Work Phone: 7(782)459-703097 [place] [address] 05-04-2023 01:59-0400 SaO2% (BldA) [Mass fraction] 99 % [facility] Work Phone: [facility] 05-03-2023 23:36-0400 Body mass index (BMI) [Ratio] 24.3 kg/m2 [facility] Work Phone: 7([phone])398-990291 [place] [address] 05-03-2023 23:36-0400 Body temperature 96.5 [degF] [facility] Work Phone: 9(835)809-454997 [place] [address] 05-03-2023 23:36-0400 Body weight 85.72 kg [facility] Work Phone: [phone] [address] 05-03-2023 23:36-0400 Diastolic blood pressure 84 mm[Hg] [facility] Work Phone: [phone] [place] [address] 05-03-2023 23:36-0400 Systolic blood pressure 121 mm[Hg] [facility] Work Phone: [phone] [place] [address] 01-27-2023 02:22-0400 Diastolic blood pressure 54 mm[Hg] [facility] 01-27-2023 02:22-0400 Heart rate 61 /min [facility] 01-27-2023 02:22-0400 Respiratory rate 18 /min [facility] 01-27-2023 02:22-0400 SaO2% (BldA) [Mass fraction] 99 % [facility] 01-27-2023 02:22-0400 Systolic blood pressure 99 mm[Hg] [facility] 01-26-2023 23:53-0400 Body height 182.88 cm [facility] 01-26-2023 23:53-0400 Body mass index (BMI) [Ratio] 24.5 kg/m2 [facility] 01-26-2023 23:53-0400 Body temperature 97.6 [degF] [facility] 01-26-2023 23:53-0400 Body weight 81.91 kg [facility] 07-08-2022 18:58-0500 Body temperature 99.81 [degF] Brandie Blas [employer] F[employer]ER.SCHEDULE SUPERVISOR Work Phone: [facility] 07-08-2022 18:58-0500 Body weight 91.72 kg Brandie Blas [employer] FARMER.SCHEDULE SUPERVISOR Work Phone: [facility] 07-08-2022 18:58-0500 Diastolic blood pressure 82 mm[Hg] Brandie Blas [employer] FARMER.SCHEDULE SUPERVISOR Work Phone: [facility] 07-08-2022 18:58-0500 Heart rate 105 /min Brandie Blas [employer] FARMER.SCHEDULE SUPERVISOR Work Phone: [facility] 07-08-2022 18:58-0500 Respiratory rate 18 /min Brandie Blas [employer] FARMER.SCHEDULE SUPERVISOR Work Phone: [facility] 07-08-2022 18:58-0500 SaO2% (BldA) [Mass fraction] 97 % Brandie Blas [employer] FARMER.SCHEDULE SUPERVISOR Work Phone: [facility] 07-08-2022 18:58-0500 Systolic blood pressure 122 mm[Hg] Brandie Blas [employer] FARMER.SCHEDULE SUPERVISOR Work Phone: [facility] 05-29-2022 17:06-0500 Diastolic blood pressure 74 mm[Hg] [facility] 05-29-2022 17:06-0500 Heart rate 67 /min [facility] 05-29-2022 17:06-0500 Respiratory rate 16 /min [facility] 05-29-2022 17:06-0500 SaO2% (BldA) [Mass fraction] 100 % [facility] 05-29-2022 17:06-0500 Systolic blood pressure 120 mm[Hg] [facility] 05-29-2022 15:59-0500 Body height 182.88 cm [facility] 05-29-2022 15:59-0500 Body mass index (BMI) [Ratio] 28.8 kg/m2 [facility] 05-29-2022 15:59-0500 Body temperature 97.1 [degF] [facility] 05-29-2022 15:59-0500 Body weight 96.2 kg [facility] Encounters Encounter Date Encounter Type Care Provider Facility Start: 04-03-2025 End: 04-03-2025 ambulatory OMAR CRUZ Facility:[facility] Start: 03-11-2025 End: 03-12-2025 Emergency department patient visit ADA NIX [facility] Start: 01-04-2025 End: 01-04-2025 Follow-up encounter Brandie Blas SCHEDULE SUPERVISOR Work Phone: [facility] Comment on above: Results Start: 01-02-2025 End: 01-02-2025 Patient encounter procedure Lee Cathi [employer] FARMER.SCHEDULE SUPERVISOR Work Phone: [facility] Comment on above: Acute left-sided low back pain, unspecified whether sciatica present (Primary Dx) Start: 01-02-2025 End: 01-02-2025 ambulatory LEE CATHI Facility:[facility] Start: 12-14-2024 End: 12-14-2024 ambulatory Omar Cruz MD Work Phone: [facility] [place] Comment on above: test results Start: 12-14-2024 End: 12-14-2024 E-mail encounter from caregiver Omar Cruz MD Work Phone: [facility] [place] Start: 12-08-2024 End: 12-11-2024 Follow-up encounter Omar Cruz MD Work Phone: [facility] Comment on above: Results Start: 12-06-2024 End: 02-05-2025 Follow-up encounter Darling Lucero APRN.CNChristy Work Phone: OB/Gynecology Start: 12-01-2024 End: 12-01-2024 Emergency department patient visit Anthony Frias Facility:[facility] Start: 11-23-2024 End: 11-23-2024 Patient encounter procedure Darling Lucero APRN.CNChristy Work Phone: OB/Gynecology Comment on above: Encounter for gyneco logical examination (general) (routine) without abnormal findings (Primary Dx); Screening for cervical cancer; Encounter for screening for human papillomavirus (HPV); Encounter for screening mammogram for breast cancer; Dense breast tissue Start: 11-23-2024 End: 11-23-2024 Patient encounter status Darling Lucero APRN.SAJANM Work Phone: [facility] Start: 11-23-2024 End: 11-23-2024 ambulatory DARLING CJ Facility:[facility] Start: 11-23-2024 Encounter for gynecological examination (general) (routine) without abnormal findings [facility] Start: 11-01-2024 End: 11-01-2024 Telephone encounter Darling Pagepiter RON.GALILEA Work Phone: [facility] Comment on above: Orders Start: 10-27-2024 ambulatory OMAR CRUZ Fac ility:[facility] Start: 10-27-2024 End: 10-27-2024 Subsequent hospital visit by physician [facility] Comment on above: Palpitations [R00.2] Start: 09-05-2024 End: 09-05-2024 Patient encounter procedure Omar Cruz MD Work Phone: [facility] Comment on above: Palpitations (Primar y Dx); Precordial pain Start: 09-05-2024 End: 09-05-2024 ambulatory OMAR CRUZ Facility:[facility] Start: 12-23-2023 End: 12-23-2023 Emergency department patient visit [facility] Facility:[facility] Start: 09-23-2023 Refill Darlingjasmeet [place] elkin NASCIMENTO Work Phone: OB/Gynecology Comment on above: Refill Request Start: 06-18-2023 End: 06-18-2023 Patient encounter procedure Yolanda Jenkins OD Work Phone: Ophthalmology Comment on above: Punctate keratitis, bilateral (Primary Dx); Dry eye syndrome of bilateral lacrimal glands; Vitreous floaters of left eye; Distortion of visual image of left eye; Myopia, bilateral; Regular astigmatism of both eyes Start: 06-01-2023 End: 06-01-2023 Patient encounter procedure Yolanda Jenkins OD Work Phone: Ophthalmology Comment on above: Contact lens overwea r of both eyes (Primary Dx); Punctate keratitis, bilateral Start: 05-19-2023 End: 05-19-2023 Patient encounter procedure Oneyda Aldrich APRN.[facility] Work Phone: OB/Gynecology Comment on above: 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 Work Phone: Start: 05-05-2023 End: 05-05-2023 ambulatory [facility] Work Phone: [facility] Work Phone: Start: 05-05-2023 End: 05-05-2023 Patient encounter procedure [facility] Work Phone: [facility]-Laboratory, Specimen Work Phone: Start: 05-05-2023 End: 05-05-2023 Patient encounter procedure [facility] Work Phone: [facility] Work Phone: Start: 05-03-2023 End: 05-04-2023 Emergency department patient visit [facility] Work Phone: [facility]-Emergency Department Work Phone: Start: 02-10-2023 End: 02-10-2023 Subsequent hospital visit by physician Xr [facility] Work Phone: Radiology Start: 01-26-2023 End: 01-27-2023 Emergency department patient visit [facility]Emergency [facility] Work Phone: Start: 08-21-2022 End: 08-21-2022 ambulatory [facility] Work Phone: Start: 08-21-2022 End: 08-21-2022 Patient encounter procedure [facility]Labor[facility] Start: 07-16-2022 End: 07-16-2022 ambulatory [facility] Work Phone: Start: 07-16-2022 End: 07-16-2022 Patient encounter procedure [facility]-Pulmonary Services/Neurology Start: 07-09-2022 Telephone encounter Jackie King RON.SCHEDULE SUPERVISOR Work Phone: [facility] Comment on above: Results Start: 07-08-2022 End: 07-08-2022 Subsequent hospital visit by physician Xr [facility] Work Phone: Radiology Comment on above: Acute cough [R05.1] Start: 07-08-2022 End: 07-08-2022 Patient encounter procedure Brandie Summerssaul VELASQUEZ.SCHEDULE SUPERVISOR Work Phone: [facility] Comment on above: Acute cough (Primary Dx); URI, acute Start: 06-17-2022 End: 06-17-2022 ambulatory [facility] Work Phone: Start: 06-17-2022 End: 06-17-2022 Patient encounter procedure [facility]Labor[facility] Start: 05-29-2022 End: 05-29-2022 Emergency department patient visit [facility]Emergency Department Start: 05-25-2022 End: 05-25-2022 ambulatory [facility] Work Phone: Start: 05-25-2022 End: 05-25-2022 Patient encounter procedure [facility]-Ultrasound, [facility] Procedures Date Procedure Procedure Detail Performing Clinician Start: 01-02-2025 Urnls dip stick/tabl et rgnt auto w/o microscopy Adis Slade [employer] FARMER.SCHEDULE SUPERVISOR Work Phone: Start: 10-27-2024 Echo tthrc r-t 2d w/wom-mode compl spec&colr d Omar Cruz MD Work Phone: Start: 06-18-2023 Computerized ophthal divina imaging retina Yolanda Jenkins OD Work Phone: Start: 05-04-2023 Urine culture [facility] Work Phone: Start: 02-10-2023 Radiologic exam ches t 2 views [facility] Provider Start: 07-08-2022 COVID WITH FLUA+B, ROUTINE Brandie Blas [employer] FARMER.KADE Work Phone: Start: 07-08-2022 Radiologic exam ches t 2 views Brandie Blas [employer]IVE[employer] FARMERBRAVO Work Phone: Start: 05-25-2022 Transvaginal echography H/O: surgery H/O dilation and curettage Plan of Treatment Date Care Activity Detail Author Start: 11-23-2029 Screening for malign ant neoplasm of cervix Cervical Cancer Screening [facility] Start: 11-23-2025 End: 11-23-2025 Patient encounter procedure 11/23/2025 2:45 PM EDT Office Visit OB/Gynecology [address] [place], [place] [id number] Darling Lucero APRN.CNM [address] [place] [address] Annual OB/Gynecology Comment on above: Annual Start: 09-14-2025 End: 09-14-2025 Patient encounter procedure 09/14/2025 1:30 PM EST Appointment Mammogram [address] [place] [address] : Encounter for gynecological examination (general) (routine) without abnormal findings [Z01.419]; Encounter for screening mammogram for breast cancer [Z12.31]; Dense breast tissue [R92.30] Mammogram Comment on above: : Encounter for gyne cological examination (general) (routine) without abnormal findings [Z01.419]; Encounter for screening mammogram for breast cancer [Z12.31]; Dense breast tissue [R92.30] Start: 04-03-2025 End: 04-03-2025 Patient encounter procedure 04/03/2025 3:40 PM EDT Office Visit [facility] [place] [address] [place] [address] Omar Cruz MD [address], [address] [place] [address] Overdue 6wk f/u. srs /category director [facility] Comment on above: Overdue 6wk f/u. srs /category director Start: 03-12-2025 Influenza vaccination [facility] Start: 12-12-2024 End: 12-12-2024 Patient encounter procedure 12/12/2024 2:00 PM EDT Office Visit [facility] [place] [address] [place] [address] Omar Cruz MD [address], [address] [place] [address] 6wk f/u. srs /category director [facility] Comment on above: 6wk f/u. srs /category director Start: 11-23-2024 End: 11-23-2024 Patient encounter procedure 11/23/2024 2:45 PM EDT Office Visit OB/Gynecology [address] [place] [address] Darling Lucero APRN.CN [address] [place] [address] Annual Exam OB/Gynecology Comment on above: Annual Exam Start: 10-25-2024 End: 10-25-2024 Patient encounter procedure 10/25/2024 11:00 AM EDT Office Visit [facility] [address] [place] [address] Omar Cruz MD [address], [address] [place] [address] 6 wk palpitations srs [facility] Comment on above: 6 wk palpitations sr s Start: 09-12-2024 End: 09-05-2025 Echocardiography [facility] Routine Palpitations Expected: 09/12/2024, Expires: 09/05/2025 [facility] Comment on above: Expected: 09/12/2024 , Expires: 09/05/2025 Start: 09-12-2024 End: 09-05-2025 EXTENDED WEAR EXPLORATION DRILLER PATCH EXTENDED WEAR EXPLORATION DRILLER PATCH ECG Routine Palpitations Expected: 09/12/2024, Expires: 09/05/2025 [facility] Comment on above: Expected: 09/12/2024 , Expires: 09/05/2025 Start: 03-12-2024 Covid-19 Vaccine ( season) Covid-19 Vaccine ( season) [facility] Start: 03-12-2024 Influenza vaccination Influenza Vacc ine (#1) [facility] Start: 07-12-2023 Depression Assessment Depression Ass essment [facility] Start: 05-04-2023 [facility] Start: 03-12-2023 Covid-19 Vaccine ( season) Covid-19 Vaccine () [facility] Start: 03-12-2023 Influenza vaccination Influenza Vacc ine (#1) [facility] Start: 07-12-2022 DEPRESSION ASSESSMENT DEPRESSION ASS ESSMENT [facility] Start: 03-12-2022 Influenza vaccination INFLUENZA (#1) [facility] Start: 01-22-2016 PAP TESTING PAP TESTING [facility] Start: 01-22-2016 Screening for malign ant neoplasm of cervix Pap Testing [facility] Start: 2015 HPV TESTING HPV TESTING [facility] Start: 2015 Screening for malign ant neoplasm of cervix HPV Testing [facility] Start: 01-21-2014 Screening for malign ant neoplasm of cervix Cervical Cancer Screening [facility] Start: 2004 Hepatitis B Vaccine (1 of 3 - 19+ 3-dose series) Hepatitis B Vaccine (1 of 3 - 19+ 3-dose series) [facility] Start: 2004 Urine microalbumin profile [facility] Start: 2003 Anxiety Screening Anxiety Screening [facility] Start: 2003 Depression Screening Depression Scre ening [facility] Start: 2003 HEPATITIS C SCREENING HEPATITIS C [facility] Start: 2003 Hepatitis C screening Hepatitis C [facility] Start: 2003 HIV SCREENING HIV SCREENING [facility] Start: 2003 HIV screening HIV Screening [facility] Start: 1991 PNEUMOCOCCAL (1 - PCV) PNEUMOCOCCAL (1 - PCV) [facility] Start: 1991 Pneumococcal vaccination Pneum ococcal Vaccine (1 - PCV) [facility] Start: 02-22-1986 COVID-19 VACCINE (#1) COVID-19 VACCI NE (#1) [facility] Start: 1985 HEPATITIS B (1 of 3 - 3-dose series) HEPATITIS B (1 of 3 - 3-dose series) [facility] Start: 1985 Hepatitis B Vaccine (1 of 3 - 3-dose series) Hepatitis B Vaccine (1 of 3 - 3-dose series) [facility] Bacteria identified in Urine by Culture BACTERIAL CULTURE, URINE Microbiology Routine Acute left-sided low back pain, unspecified whether sciatica present Ordered: 01/02/2025 [facility] Work Phone: Comment on above: Ordered: 01/02/2025 End: 12-23-2025 DBT Breast - bilateral screening AGUILA SCREENING W [facility] Radiology Routine Encounter for gynecological examination (general) (routine) without abnormal findings Encounter for screening mammogram for breast cancer Dense breast tissue 1 Occurrences starting 11/23/2024 until 12/23/2025 [facility] Work Phone: Comment on above: 1 Occurrences starti ng 11/23/2024 until 12/23/2025 ECG B/O W INTERP (ME D OFFICE) ECG B/O W INTERP (MED OFFICE) ECG Routine Palpitations Ordered: 09/05/2024 [facility] Work Phone: Comment on above: Ordered: 09/05/2024 End: 10-27-2024 EXTENDED WEAR EXPLORATION DRILLER PATCH EXTENDED WEAR EXPLORATION DRILLER PATCH ECG Routine Palpitations 1 Occurrences starting 10/27/2024 until 10/27/2024 [facility] Work Phone: Comment on above: 1 Occurrences starti ng 10/27/2024 until 10/27/2024 PAP TEST PAP TEST Lab [facility] Encounter for gynecological examination (general) (routine) without abnormal findings Screening for cervical cancer Encounter for screening for human papillomavirus (HPV) 11/23/2024 3:27 PM EDT [facility] Patient Education [facility] Work Phone: Patient referral [facility] Work Phone: [facility] Payers Date Payer Category Payer Blue Cross Blue [facility] BLUE CARD PPO OOS [id number] 2024 Unknown [id number] 2023 Self-pay [id number] 2023 Medicaid [id number] 2023 Medicaid [id number] 2023 Private Health Insurance [facility] [employer] [id number] 2023-Present [phone] [address] [address] [place] [address] PPO [id number] 2019 Unknown [id number] 1985 Unknown [id number] Private Health Insurance [facility] [id number] Unknown ANTHEM [id number] Unknown [facility] [id number] [address] [facility] PACKAGE PLAN [id number] Unknown [facility] [place] [id number] Unknown [id number] Unknown [id number] Social History Date Type Detail Facility Start: 05-29-2022 End: 05-12-2023 Tobacco smoking status VAIS Unknown if ever smoked [facility] Start: 1985 Sex Assigned At Female W [facility] Start: 07-08-2022 Tobacco smoking stat us VAIS Smokes tobacco daily [facility] History of tobacco use Cigarette Smoker C [facility] Start: 07-08-2022 End: 05-19-2023 Cigarettes smoked current (pack per day) - Reported 0.5 [facility] Start: 07-08-2022 Tobacco use and exposure Smokeless tobacco non-user [facility] Start: 07-08-2022 End: 11-23-2024 Alcohol intake Current drinker of alcohol (finding) [facility] Start: 01-21-2011 Alcohol Comment occasional [facility] Start: 1985 Sex Assigned At Not on file [facility] Start: 07-08-2022 End: 05-19-2023 Tobacco use panel [facility] National Score (1-100), lower number is lower risk Not on file [facility] Start: 05-19-2023 End: 09-05-2024 Tobacco smoking status NHIS Ex-smoker [facility] History of tobacco use Current smoker [facility] Start: 05-19-2023 End: 09-05-2024 Tobacco use and exposure Former smokeless tobacco user [facility] History of tobacco use Chews Tobacco [facility] Start: 06-17-2023 Gender identity Identifies as female gender (finding) [facility] Start: 06-17-2023 Sexual orientation Heterosexual (fin ding) [facility] Start: 11-23-2024 Alcohol Comment very rare [facility] NEGATED: Highlighted row [facility] Work Phone: NEGATED: Highlighted row [facility] Goals Date Patient Goal Desired Activity /State Personal health goal Functional Status Date Assessment Result Facility 02-13-2015 Are you deaf, or do you have serious difficulty hearing No 02/13/2015 4:08 PM Tamiko Thrasher, DANY No [facility] 02-13-2015 Are you blind, or do you have serious difficulty seeing, even when wearing glasses No 02/13/2015 4:08 PM Tamiko Thrasher, DANY No [facility] 02-13-2015 Do you have serious difficulty walking or climbing stairs No 02/13/2015 4:08 PM Tamiko Thrasher, DANY No [facility] 02-13-2015 Do you have difficul ty dressing or bathing No 02/13/2015 4:08 PM Tamiko Thrasher, RN No [facility] 02-13-2015 Because of a physica l, mental, or emotional condition, do you have difficulty doing errands alone such as visiting a physician's office or shopping No 02/13/2015 4:08 PM Tamiko Thrasher, DANY No [facility] Mental Status Date Assessment Result Facility 01-27-2023 Cognitive function Level Of Cons ciousness Awake;Alert;Appropriate [facility] Work Phone: 05-29-2022 Cognitive function Level Of Cons ciousness Awake;Alert;Appropriate;Fol lows Commands [facility] Work Phone: 02-13-2015 Because of a physica l, mental, or emotional condition, do you have serious difficulty concentrating, remembering, or making decisions No 02/13/2015 4:08 PM Tamiko Thrasher, DANY No [facility] Clinical Notes 07-08-2022 to 04-03-2025 Telephone Encounter - Ananya Haynes MA - 01/04/2025 8:33 AM EDTTelephone Encounter - Ananya Haynes MA - 01/04/2025 8:33 AM Lee Hoskins APRN.CNP - 01/02/2025 8:00 PM EDT Note Date & Type Note Facility 04-03-2025 Note HNO ID: [id number] Author: OMAR CRUZ MD Service: ? Author Type: Physician Type: Progress Notes Filed: 04/03/2025 16:52 Note Text: Omar Cruz MD Interventional Cardiology [address] [place] [address] Chief Complaint Patient presents with: Cardiology Follow Up : Palpitations HISTORY OF PRESENT ILLNESS: Miss Dow is a 39-year-old female presenting for follow-up of palpitations, chest pain, and dyspnea. The patient reports ongoing episodes of palpitations and chest pain accompanied by dyspnea. She describes a new sensation of being choked, particularly when lying down, which she likens to blood flow being cut off in her neck and chest. This sensation improves after sitting up for a few minutes but recurs upon lying back down. She has been elevating the head of her bed to alleviate symptoms but reports poor sleep due to discomfort. She denies any history of endoscopy. She has tried jusl-zuy-xboweyd omeprazole without relief. She has gained weight since a recent medication change. She denies monitoring her blood pressure at home. She has a history of syncope occurring randomly. She denies current smoking but quit cigarettes a few years ago and vaping a few months ago. An echocardiogram in October showed normal left ventricular function with an LVEF of 50% and no valvular abnormalities. A 14-day Holter monitor revealed normal sinus rhythm with infrequent PACs (burden <0.01%). She is not currently on any medication for her symptoms and does not feel the need for antiarrhythmic therapy at this time. Cardiac Risk Factors age (male over 45, female over 55), family history of CAD PAST MEDICAL HISTORY Diagnosis Date Chest tightness Dizzy Endometriosis 2021 Fatigue, unspecified type Herpes simplex virus (HSV) infection 2022 Want retested Infertility, female Irregular heartbeat Migraines Ovarian cyst 2017 Palpitations Shortness of breath Uterine fibroid 2021 PAST SURGICAL HISTORY Procedure Laterality Date PAST SURGICAL HISTORY OF 09/2021 D and C for growth that was inside of uterus FAMILY HISTORY Problem Relation Age of Onset Hypertension Father Cancer Mother cervical cancer Cervical Cancer Mother 30 Ovarian cancer Mother 55 Uterine Cancer Mother 30 Cancer Maternal Aunt cervical cancer No Ocular Disease No Family History SOCIAL HISTORY[1] ALLERGIES Allergen Reactions Cod Liver Oil Swelling Desitin [Zinc Oxide] Rash Morphine Rash Medications: Current Outpatient Medications Medication Sig Dispense Refill L-Methylfolate 15 mg tab Take 1 tablet by mouth once daily. fish oil/borage/flax/om3,6,9 1 (OMEGA 3-6-9 ORAL) Take by mouth once daily. (Patient not taking: Reported on 04/03/2025) buPROPion XL (WELLBUTRIN XL) 150 mg 24 hr tablet Take 1 tablet by mouth once daily. (Patient not taking: Reported on 01/02/2025) No current facility-administered medications for this visit. Review of Systems Constitutional: Negative for chills, diaphoresis, fever, malaise/fatigue and weight loss. HENT: Negative for congestion, ear discharge, ear pain, hearing loss, nosebleeds, sinus pain, sore throat and tinnitus. Eyes: Negative for blurred vision, double vision, photophobia, pain, discharge and redness. Respiratory: Negative for cough, hemoptysis, sputum production, shortness of breath, wheezing and stridor. Cardiovascular: Negative for chest pain, palpitations, orthopnea, claudication, leg swelling and PND. Gastrointestinal: Negative for abdominal pain, blood in stool, constipation, diarrhea, heartburn, melena, nausea and vomiting. Genitourinary: Negative for dysuria, flank pain, frequency, hematuria and urgency. Musculoskeletal: Negative for back pain, falls, joint pain, myalgias and neck pain. Skin: Negative for itching and rash. Neurological: Negative for dizziness, tingling, tremors, sensory change, speech change, focal weakness, seizures, loss of consciousness, weakness and headaches. Endo/Heme/Allergies: Negative for environmental allergies and polydipsia. Does not bruise/bleed easily. Psychiatric/Behavioral: Negative for depression, hallucinations, memory loss, substance abuse and suicidal ideas. The patient is not nervous/anxious and does not have insomnia. Physical Examination: Vitals:BP 103/72 Pulse 92 Wt 208 lb 6.4 oz (94.5kg) SpO2 100% LMP 12/20/2024 BP w/Orthostatic Vitals Date and Time Orthostatic BP Orthostatic Pulse BP Pulse BP Position BP Site BP Cuff Size 04/03/25 1535 -- -- 103/72 92 Sitting Left Arm Large Adult Last 2 Encounter Wt Readings: Date: Wt: 04/03/2025 208 lb 6.4 oz (94.5 kg) 01/02/2025 201 lb 4.5 oz (91.3 kg) Physical Exam Constitutional: General: She is not in acute distress. Appearance: She is not diaphoretic. HENT: Head: Normocephalic and atraumatic. Right Ear: External ear normal. Left Ear: External ear normal. Nose: Nose norm (more content not included)... [facility] 01-04-2025 Telephone encounter Note Pt was notified of the results. Pt verbalized understanding. Ananya Haynes MA [facility] 01-04-2025 Miscellaneous Notes Pt was notified of the results. Pt verbalized understanding. Ananya Haynes MA Urine culture negative for bacterial growth. Please advise patient. Follow up with PCP for continued sx documented in this encounter [facility] 01-04-2025 Telephone encounter Note Urine culture negative for bacterial growth. Please advise patient. Follow up with PCP for continued sx [facility] Work Phone: 01-02-2025 Note HNO ID: [id number] Author: LEE WINKLER APRN.CNP Service: ? Author Type: Nurse Practitioner Type: Progress Notes Filed: 01/02/2025 20:16 Note Text: [facility] Subjective Lorna Dow is a 39 year old female. Patient presents with: Low Back Pain: L side low back pain x1 day HPI Increased Urinary Frequency: - Noted increased urinary frequency today, urinating approximately seven times during a work shift, compared to the usual one to two times. - No recent increase in fluid intake; typically consumes about half a bottle of water and a 16 oz drink (mostly ice) during work. - Denies nausea, emesis, fever, chills, discharge, or odor. - Reports occasional dizziness. - Denies possibility of . Chronic Back Pain: - Chronic back pain secondary to scoliosis and previous back injuries. - Describes current pain as achy and different from usual. - Denies spinal tenderness or upper back pain. - Taking dual-action Tylenol and Motrin for pain management. Review of Systems Neck: (-) neck pain Gastrointestinal: (-) abdominal pain Genitourinary: (+) urinary frequency Musculoskeletal: (+) lower back pain Neurological: (+) dizziness Objective BP 148/92 Pulse 94 Temp 37.4 ?C (99.3 ?F) Resp 18 Wt 91.3 kg (201 lb 4.5 oz) LMP 12/20/2024 (Exact Date) SpO2 98% BMI 26.56 kg/m? Physical Exam General: No acute distress. CV: Heart sounds normal. Resp: Breath sounds normal. Abd: No tenderness. Back: No spinal tenderness. {1. Acute left-sided low back pain, unspecified whether sciatica present (M54.50) - Chronic back pain with scoliosis and previous back injuries; current episode likely muscular in nature. - No spinal tenderness on examination; heart and lungs auscultated clear. - Urinalysis normal; urine culture ordered to rule out UTI. - Advised increasing water intake to prevent dehydration, which can exacerbate symptoms. - Educated on alternating Tylenol and Motrin for pain management. - Patient advised against using cranberry juice for symptom relief. - Patient to follow up if symptoms persist or worsen. and Recording using ROBAUTO software for draft documentation of the visit was discussed with the patient/authorized traffic workforce representative; all questions welcomed and answered. Patient/authorized traffic workforce representative agreed to proceed MDM Procedures [facility] 01-02-2025 History of Presen t illness Narrative [facility] Subjective Lorna Dow is a 39 year old female. Patient presents with: Low Back Pain: L side low back pain x1 day HPI Increased Urinary Frequency: - Noted increased urinary frequency today, urinating approximately seven times during a work shift, compared to the usual one to two times. - No recent increase in fluid intake; typically consumes about half a bottle of water and a 16 oz drink (mostly ice) during work. - Denies nausea, emesis, fever, chills, discharge, or odor. - Reports occasional dizziness. - Denies possibility of . Chronic Back Pain: - Chronic back pain secondary to scoliosis and previous back injuries. - Describes current pain as achy and different from usual. - Denies spinal tenderness or upper back pain. - Taking dual-action Tylenol and Motrin for pain management. Review of Systems Neck: (-) neck pain Gastrointestinal: (-) abdominal pain Genitourinary: (+) urinary frequency Musculoskeletal: (+) lower back pain Neurological: (+) dizziness Objective BP 148/92 Pulse 94 Temp 37.4 C (99.3 F) Resp 18 Wt 91.3 kg (201 lb 4.5 oz) LMP 12/20/2024 (Exact Date) SpO2 98% BMI 26.56 kg/m Physical Exam General: No acute distress. CV: Heart sounds normal. Resp: Breath sounds normal. Abd: No tenderness. Back: No spinal tenderness. {1. Acute left-sided low back pain, unspecified whether sciatica present (M54.50) - Chronic back pain with scoliosis and previous back injuries; current episode likely muscular in nature. - No spinal tenderness on examination; heart and lungs auscultated clear. - Urinalysis normal; urine culture ordered to rule out UTI. - Advised increasing water intake to prevent dehydration, which can exacerbate symptoms. - Educated on alternating Tylenol and Motrin for pain management. - Patient advised against using cranberry juice for symptom relief. - Patient to follow up if symptoms persist or worsen. and Recording using ROBAUTO software for draft documentation of the visit was discussed with the patient/authorized traffic workforce representative; all questions welcomed and answered. Patient/authorized traffic workforce representative agreed to proceed MDM Procedures documented in this encounter [facility] 12-11-2024 Telephone encounter Note Voicemail msg left for patient to return call to [facility] to review test results. Office phone number provided. Marjan Griggs LPN [facility] 12-11-2024 Miscellaneous Notes Voicemail msg left for patient to return call to [facility] to review test results. Office phone number provided. Marjan Griggs LPN ----- Message from Omar Cruz MD sent at 12/08/2024 5:15 PM EDT ----- Stable echo sleik documented in this encounter [facility] 12-11-2024 Telephone encounter Note ----- Message from Omar Cruz MD sent at 12/08/2024 5:15 PM EDT ----- Stable echo sleik [facility] 11-23-2024 Note HNO ID: [id number] Author: DARLING LUCERO APRN.[facility] Service: ? Author Type: Carrier Loader Type: Progress Notes Filed: 11/23/2024 15:45 Note Text: Lorna is a 39 year old who presents for an annual gynecologic exam without complaints. Seen last year for possible HSV outbreak. Denies any further vaginal or oral lesions. 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 History LMP: 10/29/2024 (Exact Date), Having periods Age at Menarche: 10 Age at First : Age at Menopause: Licensed Esthetician History Comments: Sexual Activity: Not Currently; Male Contraception: None Menstrual Tracking History Flowsheet Row Office Visit from 11/23/2024 in OB/Gynecology Period Cycle (Days) 25 Period Duration (Days) 7 Menstrual Flow Heavy FAMILY HISTORY Problem Relation Age of Onset Hypertension Father Cancer Mother cervical cancer Cervical Cancer Mother 30 Ovarian cancer Mother 55 Uterine Cancer Mother 30 Cancer Maternal Aunt cervical cancer No Ocular Disease No Family History SOCIAL HISTORY Social History Tobacco Use Smoking status: Former Current packs/day: 0.50 Types: Cigarettes Smokeless tobacco: Former Types: Chew Vaping Use Vaping status: current everyday user Substance Use Topics Alcohol use: Yes Comment: very rare Drug use: No REVIEW OF SYSTEMS Abdomen: No abdominal pain, nausea, vomiting, diarrhea, or constipation. No bloating, early satiety, indigestion, or increased flatulence. Bladder: No dysuria, gross hematuria, urinary frequency, urinary urgency, or incontinence. Breast: No breast lumps, nipple d/c, overlying skin changes, redness or skin retraction. Allergies and current medication updated:Yes SENSITIVE EXAM: The sensitive examination was discussed with the Patient or Patient's Authorized Char Conveyor Tender Cellar. As applicable, any other physician, advance practice provider, medical student, or other health professional student that will be observing or involved in the sensitive examination for educational or training purposes was discussed with the Patient or Authorized Char Conveyor Tender Cellar. The Patient or Authorized Char Conveyor Tender Cellar has agreed to proceed with the sensitive examination. (Sensitive examination includes inspection and/or palpation of the breasts, pelvis, prostate and anorectal regions). EXAM: BP 110/72 Ht 6' 1 (1.85m) Wt 195 lb (88.5kg) LMP 10/29/2024 BMI 25.73 kg/(m2). GENERAL: pleasant, female in no apparent distress HEENT: Normocephalic and atraumatic NECK: Supple and full range of motion DERMATOLOGY: Normal and without lesions BREAST: soft, non-tender, symmetric, no dominant mass, normal nipple-areolar complex, no lymphadenopathy, and fibrocystic changes CHEST: Normal inspiratory effort ABDOMEN: soft, non-tender, and no masses PELVIC: external genitalia normal, normal Bartholin's glands, urethra, [place]'s glands, no vulvar lesions, no cervical lesions, good vaginal support, physiologic discharge present, normal appearing perineal body and perianal region Cervix friable BIMANUAL: uterus normal size, shape and consistency, no adnexal masses, non-tender, and no cervical motion tenderness RECTOVAGINAL: deferred. NEURO: alert and oriented x3,exam grossly non-focal EXTREMITIES: normal ASSESSMENT/PLAN: 1) Health maintenance: Pap done with HPV. Mammogram starting age 40- order placed 2) Contraception: none. 3) STD screening: Declined STD check. 4) Follow up one year or sooner as needed Darling Lucero APRN.[facility] 11-23-2024 History of Presen t illness Narrative Lorna is a 39 year old who presents for an annual gynecologic exam without complaints. Seen last year for possible HSV outbreak. Denies any further vaginal or oral lesions. 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 History LMP: 10/29/2024 (Exact Date), Having periods Age at Menarche: 10 Age at First : Age at Menopause: Licensed Esthetician History Comments: Sexual Activity: Not Currently; Male Contraception: None Menstrual Tracking History Flowsheet Row Office Visit from 11/23/2024 in OB/Gynecology Period Cycle (Days) 25 Period Duration (Days) 7 Menstrual Flow Heavy FAMILY HISTORY Problem Relation Age of Onset Hypertension Father Cancer Mother cervical cancer Cervical Cancer Mother 30 Ovarian cancer Mother 55 Uterine Cancer Mother 30 Cancer Maternal Aunt cervical cancer No Ocular Disease No Family History SOCIAL HISTORY Social History Tobacco Use Smoking status: Former Current packs/day: 0.50 Types: Cigarettes Smokeless tobacco: Former Types: Chew Vaping Use Vaping status: current everyday user Substance Use Topics Alcohol use: Yes Comment: very rare Drug use: No REVIEW OF SYSTEMS Abdomen: No abdominal pain, nausea, vomiting, diarrhea, or constipation. No bloating, early satiety, indigestion, or increased flatulence. Bladder: No dysuria, gross hematuria, urinary frequency, urinary urgency, or incontinence. Breast: No breast lumps, nipple d/c, overlying skin changes, redness or skin retraction. Allergies and current medication updated:Yes SENSITIVE EXAM: The sensitive examination was discussed with the Patient or Patient's Authorized Char Conveyor Tender Cellar. As applicable, any other physician, advance practice provider, medical student, or other health professional student that will be observing or involved in the sensitive examination for educational or training purposes was discussed with the Patient or Authorized Char Conveyor Tender Cellar. The Patient or Authorized Char Conveyor Tender Cellar has agreed to proceed with the sensitive examination. (Sensitive examination includes inspection and/or palpation of the breasts, pelvis, prostate and anorectal regions). EXAM: BP 110/72 Ht 6' 1 (1.85m) Wt 195 lb (88.5kg) LMP 10/29/2024 BMI 25.73 kg/(m^2). GENERAL: pleasant, female in no apparent distress HEENT: Normocephalic and atraumatic NECK: Supple and full range of motion DERMATOLOGY: Normal and without lesions BREAST: soft, non-tender, symmetric, no dominant mass, normal nipple-areolar complex, no lymphadenopathy, and fibrocystic changes CHEST: Normal inspiratory effort ABDOMEN: soft, non-tender, and no masses PELVIC: external genitalia normal, normal Bartholin's glands, urethra, [place]'s glands, no vulvar lesions, no cervical lesions, good vaginal support, physiologic discharge present, normal appearing perineal body and perianal region Cervix friable BIMANUAL: uterus normal size, shape and consistency, no adnexal masses, non-tender, and no cervical motion tenderness RECTOVAGINAL: deferred. NEURO: alert and oriented x3,exam grossly non-focal EXTREMITIES: normal ASSESSMENT/PLAN: 1) Health maintenance: Pap done with HPV. Mammogram starting age 40- order placed 2) Contraception: none. 3) STD screening: Declined STD check. 4) Follow up one year or sooner as needed Darling Lucero APRN.[facility]M documented in this encounter [facility] 11-01-2024 Telephone encounter Note Patient will turn 40 on 2025. Has upcoming annual exam. Mammogram will be discussed at that time. Livia Funes RN [facility] 11-01-2024 Miscellaneous Notes Patient will turn 40 on 2025. Has upcoming annual exam. Mammogram will be discussed at that time. Livia Funes RN Patient contacted us via my chart would like to schedule her yearly mammogram. Please enter order and forward to a scientific recruiter. documented in this encounter [facility] 11-01-2024 Telephone encounter Note Patient contacted us via my chart would like to schedule her yearly mammogram. Please enter order and forward to a scientific recruiter. [facility] Work Phone: 10-27-2024 History of Presen t illness Narrative Applied 14 day extended wear EKG patch. Pt verbalized understanding of monitor use / diary. documented in this encounter [facility] 10-27-2024 Note HNO ID: [id number] Author: MAUREEN PATRICK Automatic Machines Supervisor Service: ? Author Type: Automatic Machines Supervisor Type: Progress Notes Filed: 10/27/2024 13:51 Note Text: Applied 14 day extended wear EKG patch. Pt verbalized understanding of monitor use / diary. [facility] 09-05-2024 Note HNO ID: [id number] Author: OMAR CRUZ MD Service: ? Author Type: Physician Type: Progress Notes Filed: 09/05/2024 17:15 Note Text: Omar Cruz MD Interventional Cardiology [address] [place] [id number] Chief Complaint Patient presents with: CARD New Patient Consult: DRAINAGE ENGINEER REF FOR PALPITATIONS AND SOB HISTORY OF PRESENT ILLNESS: Ms. Dow is a 39 year old female seen in my office today for assessment management of palpitation associated with chest pain and shortness of breath Patient has been having recurrent episodes of sudden onset heart racing lasted some time seconds to few minutes associated with shortness of breath and chest discomfort Not induced by exertion happen at rest Patient had a Holter monitor many years ago and she was told was abnormal but she never follow-up with cardiology No prior cardiac history in the past She is on Inderal with no benefit controlling her palpitation Cardiac Risk Factors age (male over 45, female over 55), family history of CAD PAST MEDICAL HISTORY Diagnosis Date Chest tightness Dizzy Fatigue, unspecified type Irregular heartbeat Migraines Palpitations Shortness of breath PAST SURGICAL HISTORY Procedure Laterality Date PAST SURGICAL HISTORY OF 09/2021 D and C for growth that was inside of uterus FAMILY HISTORY Problem Relation Age of Onset Hypertension Father Cancer Mother cervical cancer Cancer Maternal Aunt cervical cancer No Ocular Disease No Family History Social History Tobacco Use Smoking status: Former Current packs/day: 0.50 Types: Cigarettes Smokeless tobacco: Former Types: Chew Vaping Use Vaping status: current everyday user Substance Use Topics Alcohol use: Yes Comment: occasional Drug use: No ALLERGIES Allergen Reactions Cod Liver Oil Swelling Desitin [Zinc Oxide] Rash Morphine Rash Medications: Current Outpatient Medications Medication Sig Dispense Refill propranolol (INDERAL) 10 mg tablet 10 mg three times a day. NEEDED fish oil/borage/flax/om3,6,9 1 (OMEGA 3-6-9 ORAL) Take by mouth once daily. buPROPion XL (WELLBUTRIN XL) 150 mg 24 hr tablet Take 1 tablet by mouth once daily. propranolol (INDERAL) 20 mg tablet (Patient not taking: Reported on 09/05/2024) No current facility-administered medications for this visit. Review of Systems Constitutional: Negative for chills, diaphoresis, fever, malaise/fatigue and weight loss. HENT: Negative for congestion, ear discharge, ear pain, hearing loss, nosebleeds, sinus pain, sore throat and tinnitus. Eyes: Negative for blurred vision, double vision, photophobia, pain, discharge and redness. Respiratory: Negative for cough, hemoptysis, sputum production, shortness of breath, wheezing and stridor. Cardiovascular: Negative for chest pain, palpitations, orthopnea, claudication, leg swelling and PND. Gastrointestinal: Negative for abdominal pain, blood in stool, constipation, diarrhea, heartburn, melena, nausea and vomiting. Genitourinary: Negative for dysuria, flank pain, frequency, hematuria and urgency. Musculoskeletal: Negative for back pain, falls, joint pain, myalgias and neck pain. Skin: Negative for itching and rash. Neurological: Negative for dizziness, tingling, tremors, sensory change, speech change, focal weakness, seizures, loss of consciousness, weakness and headaches. Endo/Heme/Allergies: Negative for environmental allergies and polydipsia. Does not bruise/bleed easily. Psychiatric/Behavioral: Negative for depression, hallucinations, memory loss, substance abuse and suicidal ideas. The patient is not nervous/anxious and does not have insomnia. Physical Examination: Vitals:BP 102/80 Pulse 87 Resp 18 Ht 6' 0 (1.83m) Wt 185 lb (83.9kg) SpO2 98% LMP 07/29/2023 BMI 25.08 kg/(m2). BP w/Orthostatic Vitals Date and Time Orthostatic BP Orthostatic Pulse BP Pulse BP Position BP Site BP Cuff Size 09/05/24 1431 -- -- 102/80 87 Sitting Left Arm Large Adult Peak Flow Date and Time PF Resp 09/05/24 1431 -- 18 Last 2 Encounter Wt Readings: Date: Wt: 09/05/2024 185 lb (83.9 kg) 07/31/2023 185 lb (83.9 kg) Physical Exam Constitutional: General: She is not in acute distress. Appearance: She is not diaphoretic. HENT: Head: Normocephalic and atraumatic. Right Ear: External ear normal. Left Ear: External ear normal. Nose: Nose normal. Mouth/Throat: Pharynx: Oropharynx is clear. Eyes: General: Right eye: No discharge. Left eye: No discharge. Conjunctiva/sclera: Conjunctivae normal. Pupils: Pupils are equal, round, and reactive to light. Cardiovascular: Rate and Rhythm: Normal rate and regular rhythm. Heart sounds: Normal heart sounds, S1 normal and S2 normal. No murmur heard. No friction rub. No gallop. No S3 or S4 sounds. Pulmonary: Effort: Pulmonary effort is normal. No respiratory distress. Breath sounds: Normal b (more content not included)... [facility] 09-05-2024 History of Presen t illness Narrative Images from the original note were not included. Omar Cruz MD Interventional Cardiology [address] [place] [address] Chief Complaint Patient presents with: CARD New Patient Consult: DRAINAGE ENGINEER REF FOR PALPITATIONS AND SOB HISTORY OF PRESENT ILLNESS: Ms. Dow is a 39 year old female seen in my office today for assessment management of palpitation associated with chest pain and shortness of breath Patient has been having recurrent episodes of sudden onset heart racing lasted some time seconds to few minutes associated with shortness of breath and chest discomfort Not induced by exertion happen at rest Patient had a Holter monitor many years ago and she was told was abnormal but she never follow-up with cardiology No prior cardiac history in the past She is on Inderal with no benefit controlling her palpitation Cardiac Risk Factors age (male over 45, female over 55), family history of CAD PAST MEDICAL HISTORY Diagnosis Date Chest tightness Dizzy Fatigue, unspecified type Irregular heartbeat Migraines Palpitations Shortness of breath PAST SURGICAL HISTORY Procedure Laterality Date PAST SURGICAL HISTORY OF 09/2021 D and C for growth that was inside of uterus FAMILY HISTORY Problem Relation Age of Onset Hypertension Father Cancer Mother cervical cancer Cancer Maternal Aunt cervical cancer No Ocular Disease No Family History Social History Tobacco Use Smoking status: Former Current packs/day: 0.50 Types: Cigarettes Smokeless tobacco: Former Types: Chew Vaping Use Vaping status: current everyday user Substance Use Topics Alcohol use: Yes Comment: occasional Drug use: No ALLERGIES Allergen Reactions Cod Liver Oil Swelling Desitin [Zinc Oxide] Rash Morphine Rash Medications: Current Outpatient Medications Medication Sig Dispense Refill propranolol (INDERAL) 10 mg tablet 10 mg three times a day. NEEDED fish oil/borage/flax/om3,6,9 1 (OMEGA 3-6-9 ORAL) Take by mouth once daily. buPROPion XL (WELLBUTRIN XL) 150 mg 24 hr tablet Take 1 tablet by mouth once daily. propranolol (INDERAL) 20 mg tablet (Patient not taking: Reported on 09/05/2024) No current facility-administered medications for this visit. Review of Systems Constitutional: Negative for chills, diaphoresis, fever, malaise/fatigue and weight loss. HENT: Negative for congestion, ear discharge, ear pain, hearing loss, nosebleeds, sinus pain, sore throat and tinnitus. Eyes: Negative for blurred vision, double vision, photophobia, pain, discharge and redness. Respiratory: Negative for cough, hemoptysis, sputum production, shortness of breath, wheezing and stridor. Cardiovascular: Negative for chest pain, palpitations, orthopnea, claudication, leg swelling and PND. Gastrointestinal: Negative for abdominal pain, blood in stool, constipation, diarrhea, heartburn, melena, nausea and vomiting. Genitourinary: Negative for dysuria, flank pain, frequency, hematuria and urgency. Musculoskeletal: Negative for back pain, falls, joint pain, myalgias and neck pain. Skin: Negative for itching and rash. Neurological: Negative for dizziness, tingling, tremors, sensory change, speech change, focal weakness, seizures, loss of consciousness, weakness and headaches. Endo/Heme/Allergies: Negative for environmental allergies and polydipsia. Does not bruise/bleed easily. Psychiatric/Behavioral: Negative for depression, hallucinations, memory loss, substance abuse and suicidal ideas. The patient is not nervous/anxious and does not have insomnia. Physical Examination: Vitals:BP 102/80 Pulse 87 Resp 18 Ht 6' 0 (1.83m) Wt 185 lb (83.9kg) SpO2 98% LMP 07/29/2023 BMI 25.08 kg/(m^2). BP w/Orthostatic Vitals Date and Time Orthostatic BP Orthostatic Pulse BP Pulse BP Position BP Site BP Cuff Size 09/05/24 1431 -- -- 102/80 87 Sitting Left Arm Large Adult Peak Flow Date and Time PF Resp 09/05/24 1431 -- 18 Last 2 Encounter Wt Readings: Date: Wt: 09/05/2024 185 lb (83.9 kg) 07/31/2023 185 lb (83.9 kg) Physical Exam Constitutional: General: She is not in acute distress. Appearance: She is not diaphoretic. HENT: Head: Normocephalic and atraumatic. Right Ear: External ear normal. Left Ear: External ear normal. Nose: Nose normal. Mouth/Throat: Pharynx: Oropharynx is clear. Eyes: General: Right eye: No discharge. Left eye: No discharge. Conjunctiva/sclera: Conjunctivae normal. Pupils: Pupils are equal, round, and reactive to light. Cardiovascular: Rate and Rhythm: Normal rate and regular rhythm. Heart sounds: Normal heart sounds, S1 normal and S2 normal. No murmur heard. No friction rub. No gallop. No S3 or S4 sounds. Pulmonary: Effort: Pulmonary effort is normal. No respiratory distress. Breath sounds: Normal breath sounds. No wheezing or rales. Chest: Chest wall: No tenderness. Abdominal: General: Abdomen is flat. Musculoskeletal: General: Normal range of motion. Cervical back: Normal range of motion and neck supple. Skin: General: Skin is warm and dry. Neurological: Mental Status: She is alert and oriented to person, place, and time. Psychiatric: Mood and Affect: Mood normal. Thought Content: Thought content normal. Pertinent Labs: CBC: Hemoglobin (g/dL) Date Value 07/31/2023 13.2 04/04/2013 12.0 Hematocrit (%) Date Value 07/31/2023 40.9 04/04/2013 38.3 WBC (k/uL) Date Value 07/31/2023 6.85 04/04/2013 5.64 Platelet Count (k/uL) Date Value 07/31/2023 283 04/04/2013 251 BMP: Glucose (mg/dL) Date Value 07/31/2023 103 04/04/2013 77 Potassium (mmol/L) Date Value 07/31/2023 4.1 04/04/2013 3.7 Sodium (mmol/L) Date Value 07/31/2023 137 04/04/2013 139 Chloride (mmol/L) Date Value 07/31/2023 103 04/04/2013 104 CO2 (mmol/L) Date Value 07/31/2023 22 04/04/2013 23 Creatinine (mg/dL) Date Value 07/31/2023 0.72 04/04/2013 0.87 BUN (mg/dL) Date Value 07/31/2023 12 04/04/2013 11 Anion Gap (mmol/L) Date Value 07/31/2023 12 04/04/2013 12 Calcium (mg/dL) Date Value 04/04/2013 8.8 Calcium, Total (mg/dL) Date Value 07/31/2023 9.1 INR: Lipid Profile: No results found for: CHOL, HDL, LDL, TG Hemoglobin A1C: No results found for: HGBA1C TSH: No results found for: TSHREFL Prior Cardiac Testing EKG Assessment and Plan: 39 years old female patient with chest pain and palpitation exertional dyspnea ASSESSMENT/PLAN: 1. Palpitations - ICD9: 785.1, ICD10: R00.2 (primary diagnosis) Possibly SVT patient required Holter monitor to assess for underlying arrhythmia Echocardiography to rule out any structural heart disease - ECG B/O W INTERP (MED OFFICE) - EXTENDED WEAR EXPLORATION DRILLER PATCH - ECHO - PERFLUTREN LIPID MICROSPHERES 1.1 MG/ML INJECTION IN NS 10 ML 2. Precordial pain - ICD9: 786.51, ICD10: R07.2 Atypical chest pain, symptoms are not consistent with cardiac ischemia due to nonexertional nature of symptom possible etiology include Anxiety or secondary to arrhythmia - Electrocardiogram: Omar Cruz MD Follow up plannin weeks Electronically signed by Omar Cruz MD on September 05, 2024, 5:12 PM The above note was partially created using a dictation recognition software. A reasonable attempt has been made to correct any errors. PATIENT COMPLAINS OF HAVING CHEST PAINS , SOB AND PALPITATIONS AND IT HAPPENS IF SHE IS JUST SITTING. documented in this encounter [facility] 09-05-2024 Note HNO ID: [id number] Author: DC PARK MA Service: ? Author Type: Retinal Surgeon Type: Progress Notes Filed: 09/05/2024 17:15 Note Text: PATIENT COMPLAINS OF HAVING CHEST PAINS , SOB AND PALPITATIONS AND IT HAPPENS IF SHE IS JUST SITTING. [facility] 09-23-2023 Miscellaneous Notes Patient notified. Divya Shore RN The following approved medication requests have been transmitted electronically. Requested Prescriptions Signed Prescriptions Disp Refills valACYclovir (VALTREX) 1 gram tablet 5 tablet 4 Sig: Take 1 tablet by mouth once daily for 5 days. Authorizing Provider: ONEYDA ALDRICH Pharmacy Information Pharmacy Address [facility] [address] [place], [place] [id number] [place] [address] Patient called requesting a refill of valtrex for hsv outbreak. Patient states that she is taking 1 tablet daily for X 5 days. Should patient be taking 2 tablets daily X 5 days for outbreaks? documented in this encounter [facility] 06-18-2023 History of Presen t illness Narrative 1. Punctate keratitis, bilateral 2. Dry eye syndrome of bilateral lacrimal glands +Incomplete blink both eyes Inferior punctate keratitis Recommended gel nightly and artificial tears 2-3x daily 3. Vitreous floaters of left eye 4. Distortion of visual image of left eye Educated pt on condition Will monitor Patient to call with any sudden increase in flashes/floaters 5. Myopia, bilateral 6. Regular astigmatism of both eyes Continue with current glasses-attempted refraction today but patient notes smeared vision in left eye Follow-up in 1 month for dry eye check Yolanda Jenkins, GRISEL June 18, 2023 9:53 AM documented in this encounter [facility] 06-18-2023 Instructions Yolanda Jenkins, OD - 06/18/2023 8:56 AM EST Use Systane Complete or Refresh Relieva 2-3 times daily Use Systane, Refresh or Blink gel nightly before bed in both eyes documented in this encounter [facility] 06-01-2023 History of Presen t illness Narrative 1. Contact lens overwear of both eyes 2. Punctate keratitis, bilateral Vs beginning of viral conjunctivitis Leaning more towards overwear/dryness (and lack of sleep) Recommended cool compresses, gel and tears for comfort and no cl wear while problem resolves Return if symptoms worsen of fail to improve within 5-7 days Yolanda Jenkins, GRISEL June 01, 2023 10:38 AM documented in this encounter [facility] 06-01-2023 Instructions Yolanda Jenkins, GRISEL - 06/01/2023 10:33 AM EST Use Systane Complete or Refresh Relieva 2-3 times daily Use Systane, Refresh or Blink gel nightly before bed in both eyes Use cool compresses as needed for comfort No contact lens wear until problem resolves documented in this encounter [facility] 05-19-2023 Instructions Oneyda Aldrich APRN.SCHEDULE SUPERVISOR - 05/19/2023 7:33 AM EST Menopause Symptoms Not all women experiences menopause in the same way. For some, menopause can bring on an array of uncomfortable symptoms. Others may experience few if any discomforts. This information has been prepared to help you manage the most common changes associated with the midlife transition. RELIEVING HOT FLASHES * Identify and avoid your hot flash triggers. Common triggers may include stress, caffeine, alcohol, spicy foods, tight clothing, heat and cigarette smoke. * Keep the bedroom cool. Use fans during the day. Wear light layers of clothes with natural fibers. * Try deep, slow abdominal paced breathing (6 to 8 breaths per minute). Practice deep breathing for 15 minutes in the morning, 15 minutes in the evening and at the onset of hot flashes. * Exercise daily. Walking, swimming, dancing and bicycling with helmet are good choices along with yoga. * Add soy protein in the form of food (40-60 mg) to your diet daily in place of animal protein. Promensil and isoflavone tablets have NOT been shown to significantly help menopausal symptoms * Black cohosh (in the form of Remifemin) can be used for hot flashes and has been approved by [place] for only 6 months of use, however has NOT been well studied in the [place] for buttermaker helper effects and THERE HAVE BEEN REPORTS OF LIVER TOXICITY WITH BLACK COHOSH USE. (Avoid kava kava, valerian root and beware that most herbal products are NOT regulated in the [place] and some have been associated with liver toxicity) NOTE: HORMONE THERAPY (HT) is the MOST EFFECTIVE treatment and the only FDA approved treatment for menopausal symptoms. Any form of hormones, including 'bioidentical' hormones have risks as well as benefits. * Antidepressants like Effexor (venlaflaxine) a NSRI or Pristiq (desvenlafaxine) another agent, Neurontin (gabapentin) may help block hot flashes and all have risks and benefits like any prescription or off the shelf medicine. * Use of Bellergal is discouraged as it contains an addictive barbiturate. RELIEVING INSOMNIA * Keep the bedroom cool to prevent night sweats. Special chill pillows that are cool are available. * Avoid using sleeping pills. * Exercise daily but not right before bedtime. * Avoid caffeine and alcohol at night. * Take a warm shower at bedtime. COPING WITH MOOD SWINGS, FEARS AND DEPRESSION * Find a self-calming skill to practice, such as yoga, meditation or slow deep breathing. * Avoid tranquilizers, if possible, however prescription anti-depressants can be very effective. * Engage in a creative outlet that fosters a sense of achievement. * Stay connected with your family and community; nurture your friendships. RELIEVING PAINFUL INTERCOURSE * Try using a vaginal water-based moisturizing lotion 3 times a week (like Replens or SILK-E) or lubricant during intercourse like KY jelly or Astroglide. *Local estrogen treatments for the vagina/bladder are available as a cream, tablet or vaginal ring. HELPFUL WEB SITES www.menopause.org www.[facility].org/womenshe alth documented in this encounter [facility] 05-19-2023 History of Presen t illness Narrative Lorna Dow is a 37 year old female who presents for problem visit ED vaginal lesion follow-up HPI: Evaluated at [facility] ED for single sore which had been there 2 days - unsure if HSV or lack of estrogen. Initially thought she was getting a UTI because her urine smelled strong. Resolved with increase water and cranberry juice. Started breaking out with acne over entire body. Initial lesion felt like a dry spot and she treated with with lubricant. It was sore the next day especially with urinating. Could not get comfortable to sleep so went to ED. Followed-up with [facility] the next day - culture negative. Urgent care did IgG HSV 2 positive Sore completely healed. History of cold sores. [facility] HSV Culture Screen on 05-06-2023 HSV CULTURE Negative Herpes Simplex Virus I IgG Antibody < 0.91 index 0.00-0.90 HSV 2 Ab IA Qn (S) 11.30 index 0.00-0.90 STD results negative. Sexually active with 2 male partners, unprotected. 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 LMP: 05/08/2023, Having periods Age at Menarche: Age at First : Age at Menopause: Licensed Esthetician History Comments: Sexual Activity: Not Currently; Male Contraception: None PAST MEDICAL HISTORY Diagnosis Date Migraines NEGATIVE MEDICAL HISTORY PAST SURGICAL HISTORY Procedure Laterality Date PAST SURGICAL HISTORY OF 09/2021 D and C for growth that was inside of uterus FAMILY HISTORY Problem Relation Age of Onset Cancer Mother cervical cancer Hypertension Father Cancer Maternal Aunt cervical cancer Social History Tobacco Use Smoking status: Former Packs/day: .5 Types: Cigarettes Smokeless tobacco: Former Types: Chew Vaping Use Vaping Use: current everyday user Substance Use Topics Alcohol use: Yes Comment: occasional Drug use: No Current Outpatient Medications Medication Sig buPROPion XL (WELLBUTRIN XL) 150 mg 24 hr tablet Take 1 tablet by mouth once daily. propranolol (INDERAL) 20 mg tablet valACYclovir (VALTREX) 500 mg tablet Take 2 tablets by mouth once daily for 20 days. No current facility-administered medications for this visit. Allergies As of Date: 05/19/2023 Allergen Noted Reaction DESITIN [ZINC OXIDE] 01/21/2011 Rash MORPHINE 01/21/2011 Rash Fully Assessed 05/19/2023 REVIEW OF SYSTEMS Allergies and current medication updated:Yes EXAM: BP 100/60 Wt 183 lb 3.2 oz (83.1kg) LMP 05/08/2023 GENERAL: pleasant, female in no apparent distress CHEST: Normal inspiratory effort NEURO: alert and oriented x3,exam grossly non-focal ASSESSMENT/PLAN: 1. 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 Positive HSV IgG2. - Discussed HSV types, etiology, symptoms and progression of healing, triggers and transmission. Given written information - VALACYCLOVIR 500 MG TABLET - 1 gm episodic treatment 2. Hot flashes - ICD9: 782.62, ICD10: R23.2 - could be medication side effect. Given written information. - thyroid testing WN - sees Fady Quesada Follow-up as needed. Oneyda Aldrich APRN.CNP Medical Decision Making: Problems: Moderate: 1+ chronic illnesses with change Data: Unique source(s) for external note(s) reviewed: 2 Unique test result(s) reviewed: 3+ Risk: Moderate: Drug management and Moderate risk from testing/treatment Medical Decision Making Level: 4 - Moderate documented in this encounter [facility] 02-10-2023 History of Presen t illness Narrative Radiology Service Progress Note PATIENT NAME: Lorna Dow DATE OF SERVICE: February 10, 2023 TIME: 11:21 AM PATIENT IDENTITY VERIFICATION COMPLETED USING TWO (2) IDENTIFIERS: Name and Date of confirmed by patient verbally. FALL SCREENING: Has the patient had 2 falls in the last year or 1 fall with injury or currently using an Ambulatory Assistive Device (Walker, Cane, Wheelchair, Crutches, etc.)? No PATIENT GENDER DATA: Female. status: : No status: NO. PATIENT RELEVANT IMPLANT DATA REVIEWED: Not Applicable RADIOLOGY DEPARTMENT: General X-ray: Exam(s) Completed: Chest X-Ray PERIPHERAL IV DATA: Not applicable SIGNED BY: RT Leia(R) February 10, 2023 11:21 AM documented in this encounter [facility] 07-09-2022 Miscellaneous Notes Phone call placed patient advised (see prior provider encounter) Patient verbalized understanding, requested copy of positive Flu results to be placed in [facility]. Results printed placed in [facility]. Tameka Penny LPN Please notify of negative covid test. You are positive for influenza A. Continue comfort measures and medications for symptoms as discussed at visit. Any worsening symptoms follow up with PCP or ER. Jackie King APRN.CNP documented in this encounter [facility] 07-08-2022 Instructions Brandie Blas APRN.CNP - 07/08/2022 8:03 PM EST RESPIRATORY INFECTION GENERAL INFORMATION: An upper respiratory tract infection, or cold, is a viral infection of the airway passages. It can be caused by any one of almost 200 different viruses. Common symptoms include a runny or stuffy nose, sneezing, watery eyes, sore throat, cough, and slight fever. Colds are contagious, especially during the first 3 or 4 days and cannot be cured by antibiotics. They are spread by coughs, sneezes, and direct contact, especially [id number]. A respiratory tract infection usually clears up in a few days, but some people may be sick for a week or two. INSTRUCTIONS: 1. Be careful not to blow your nose too hard because this may cause a nosebleed. 2. Use a cool-mist humidifier (vaporizer) to increase air moisture. This will make it easier for you to breathe. Do not use hot steam. 3. Rest as much as possible and get plenty of sleep. 4. Wash your hands often, especially after you blow your nose. Cover your mouth and nose with a tissue when you sneeze or cough. 5. Drink plenty of clear fluids (8 glasses a day) such as water, fruit juice, tea, clear soups, and carbonated beverages. CONTACT YOUR DOCTOR IF : 1. Your fever lasts more than 3 days. 2. You have a sore throat that gets worse or you see white or yellow spots in your throat. 3. Your cough gets worse or lasts more than 10 days. 4. You develop a rash anywhere on your skin. 5. You have an earache or a headache. 6. You have thick greenish or yellowish discharge from your nose. RETURN IMMEDIATELY IF: 1. You cough up thick yellow, green, acevedo, or bloody sputum. 2. You have difficulty breathing, pain in your chest, or your skin or nails look acevedo or blue. 3. You have shaking chills or a temperature over 102 F (39 C). documented in this encounter [facility] 07-08-2022 History of Presen t illness Narrative This note was created using [employer]. Subjective Lorna Dow is a 36 year old female. 36 year old female with PMH migraines presents for complaints of illness. Acute onset Wednesday States she started to develop sweats while working at work. Wednesday, states during dinner she started to feel tingling in her back +fever 101 +nasal congestion +cough +chest congestion +body aches + fatigue States she had difficulty sleeping related to feeling miserable +tobacco usage. The history is provided by the patient. No russian language instructor was used. Flu Like Symptoms This is a new problem. The current episode started in the past 7 days. The problem occurs constantly. The problem has been unchanged. Associated symptoms include congestion, coughing, diaphoresis, fatigue, a fever, myalgias and swollen glands. Pertinent negatives include no abdominal pain, anorexia, arthralgias, change in bowel habit, chest pain, chills, headaches, joint swelling, nausea, neck pain, numbness, rash, sore throat, urinary symptoms, vertigo, visual change, vomiting or weakness. Nothing aggravates the symptoms. The treatment provided no relief. PAST MEDICAL HISTORY Diagnosis Date Migraines NEGATIVE MEDICAL HISTORY PAST SURGICAL HISTORY Procedure Laterality Date NONE ALLERGIES Desitin [Zinc Oxide] and Morphine MEDICATIONS propranolol (INDERAL) 20 mg tablet ferrous sulfate 325 mg (65 mg iron) tablet TWICE A DAY Multivitamin ORAL capsule Take 1 capsule by mouth once daily. (Patient not taking: Reported on 07/08/2022) FAMILY HISTORY Problem Relation Age of Onset Cancer Mother cervical cancer Cancer Maternal Aunt cervical cancer Hypertension Father Social History Tobacco Use Smoking status: Every Day Packs/day: 0.50 Types: Cigarettes Smokeless tobacco: Never Vaping Use Vaping Use: Never used Substance Use Topics Alcohol use: Yes Comment: occasional Drug use: No Review of Systems Constitutional: Positive for diaphoresis, fatigue and fever. Negative for chills. HENT: Positive for congestion. Negative for sore throat. Eyes: Negative for pain, discharge, redness and itching. Respiratory: Positive for cough. Negative for apnea, choking and chest tightness. Cardiovascular: Negative for chest pain. Gastrointestinal: Negative for abdominal pain, anorexia, change in bowel habit, nausea and vomiting. Musculoskeletal: Positive for myalgias. Negative for arthralgias, joint swelling and neck pain. Skin: Negative for rash. Allergic/Immunologic: Negative for environmental allergies, food allergies and immunocompromised state. Neurological: Negative for vertigo, weakness, numbness and headaches. Objective BP 122/82 Pulse 105 Temp 37.7 C (99.8 F) (Tympanic) Resp 18 Wt 91.7 kg (202 lb 3.2 oz) LMP 10/19/2020 SpO2 97% BMI 27.42 kg/m Physical Exam Vitals and nursing note reviewed. Constitutional: General: She is not in acute distress. Appearance: Normal appearance. She is normal weight. She is not ill-appearing, toxic-appearing or diaphoretic. HENT: Head: Normocephalic and atraumatic. Right Ear: Ear canal and external ear normal. Left Ear: Ear canal and external ear normal. Nose: Nose normal. No congestion or rhinorrhea. Mouth/Throat: Mouth: Mucous membranes are moist. Pharynx: No oropharyngeal exudate or posterior oropharyngeal erythema. Eyes: General: Right eye: No discharge. Left eye: No discharge. Extraocular Movements: Extraocular movements intact. Conjunctiva/sclera: Conjunctivae normal. Pupils: Pupils are equal, round, and reactive to light. Cardiovascular: Rate and Rhythm: Normal rate and regular rhythm. Pulses: Normal pulses. Heart sounds: Normal heart sounds. No murmur heard. No friction rub. Pulmonary: Effort: Pulmonary effort is normal. No respiratory distress. Breath sounds: Normal breath sounds. No stridor. No wheezing, rhonchi or rales. Chest: Chest wall: No tenderness. Abdominal: General: Abdomen is flat. There is no distension. Palpations: Abdomen is soft. There is no mass. Tenderness: There is no abdominal tenderness. There is no right CVA tenderness, left CVA tenderness, guarding or rebound. Hernia: No hernia is present. Musculoskeletal: General: No swelling, tenderness, deformity or signs of injury. Normal range of motion. Cervical back: Normal range of motion and neck supple. No rigidity. Right lower leg: No edema. Left lower leg: No edema. Lymphadenopathy: Cervical: No cervical adenopathy. Skin: General: Skin is warm and dry. Capillary Refill: Capillary refill takes less than 2 seconds. Coloration: Skin is not jaundiced or pale. Findings: No bruising, erythema, lesion or rash. Neurological: General: No focal deficit present. Mental Status: She is alert and oriented to person, place, and time. Cranial Nerves: No cranial nerve deficit. Sensory: No sensory deficit. Motor: No weakness. Coordination: Coordination normal. Gait: Gait normal. Psychiatric: Mood and Affect: Mood normal. Behavior: Behavior normal. Thought Content: Thought content normal. Judgment: Judgment normal. Assessment and Plan ASSESSMENT/PLAN: 1. Acute cough - ICD9: 786.2, ICD10: R05.1 (primary diagnosis) X 5 days + ill contacts No red flags - XR CHEST 2V FRONTAL/LAT-negative - COVID WITH FLUA+B, ROUTINE 2. URI, acute - ICD9: 465.9, ICD10: J06.9 - Discussed viral etiology and rationale for treatment. - Symptomatic treatment with prn analgesia - Supportive care with fluids and rest - The patient may also use OTC cough and cold meds as needed, warm salt water gargles, throat lozenges and/or OTC throat spray as needed, and nasal saline gtts and suction prn. - Follow up in 3-5 days if symptoms persist or sooner if worsening of symptoms - COVID WITH FLUA+B, ROUTINE Brandie Blas APRN.SCHEDULE SUPERVISOR documented in this encounter [facility] Discharge summary Note Date/Time January 27, 2023 2:02am [facility] Medical Records Department [address] [place] [address] Emergency Department Summary 01/27/23 MR#: [id number] Acct: [id number] Name: LORNA DOW Rep #:[id number] 5 : 1985 37 From: Sam Weathers MD PCP: Sara Rosa Status:REG ER Location: ED HPI History of Present Illness Chief Complaint: Palpitations Detail of Chief Complaint: Potation's associated with left forearm pain Informant: patient Onset/Context/Timing Onset: Today Context: Sudden Onset Timing: Intermittent (Seconds) Quality: Tingling pain left forearm Location: Palpitations chest, flip but he flop Current Severity: Gone Maximum Severity: Moderate Worsened by: Nothing Relieved by: Nothing Associated Symptoms Associated Symptoms: Left forearm discomfort Narrative Narrative: Patient is a 37-year-old woman with history of palpitations. She had a Holter monitor placed when she was in [place]. She did not get the results because she was uninsured at the time and they could not give her results without payment. She presents with palpitations that lasted seconds. What concerned her was that she had shortness of breath and left arm numbness/discomfort. She had no other symptoms. She has no known history of cardiac disease. She does have history of anxiety and migraines. She denies history of hiatal hernia or reflux. She denies black or maroon-colored stool. She denies headache, visual, ocular auditory symptoms. She denied chest pain, pressure or tightness. She denied dyspnea on exertion. Prior similar symptoms: No (The arm discomfort was new and reason she) Recent Illness/Hospitalization: No PFSH PFSH Medical History Abnormal uterine bleeding (AUB) Anemia Anxiety Asthma Bipolar disorder Chest pain History of edema History of irregular heartbeat History of ulceration Injury of back Loose, teeth Migraines Ovarian cyst Scoliosis Shortness of breath on exertion Smoker Home Medications ergocalciferol (vitamin D2) 1,250 mcg (50,000 unit) capsule 1,250 mcg PO QWEEK 08/19/21 [History Last Taken Unknown] naproxen sodium 220 mg capsule (Aleve) 220 mg PO BID PRN pain 09/22/21 [History Last Taken Unknown] propranolol 10 mg tablet 10 mg PO ONCE 09/22/21 [History Last Taken Unknown] bupropion HCl 150 mg 24 hr tablet, extended release 150 mg PO DAILY 01/27/23 [History Last Taken Unknown] Allergy/AdvReac Type Severity Reaction Status Date / Time cod liver oil [From Desitin] AdvReac Swelling Verified 01/26/23 23:53 morphine AdvReac Rash Verified 01/26/23 23:53 zinc oxide [From Desitin] AdvReac Swelling Verified 01/26/23 23:53 Family History Mother Cervical cancer Parathyroid abnormality Hyperlipidemia Father Heart disease Gout Grandfather Lung disease Heart disease Surgical History H/O dilation and curettage Social History household members: family current occupational status: employed current occupation: [employer] history of recent travel: Yes sexually active: No Smoking Status: Current every day smoker tobacco type: cigarettes alcohol intake: current alcohol intake frequency: holidays/special occasions only substance use type: does not use what type of physical activity do you participate in: walking frequency: 5-6 times per week seatbelt use: always do you feel safe at home: Yes additional social history: ROS ROS ED Constitutional Constitutional ED: Denies chills, fever(s), subjective, sweats or weight loss Eyes Eyes: Denies blurry vision or change in vision ENT ENT ED: Denies ear pain, rhinorrhea or sore throat Cardiovascular Cardiovascular: Reports palpitations; Denies chest pain, orthopnea, paroxysmal nocturnal dyspnea or racing heartbeat Respiratory/Chest Respiratory/Chest: Denies cough, dyspnea, dyspnea on exertion, orthopnea or paroxysmal nocturnal dyspnea Gastrointestinal Gastrointestinal: Denies abdominal pain, nausea or vomiting Musculoskeletal Musculoskeletal: Reports other Details: Left forearm discomfort ; Denies arthralgias, back pain, myalgias or neck pain Neurologic Neurologic: Denies paresthesias or weakness Psychiatric Psychiatric: Reports anxiety and depression Hematologic/Lymphatic Hematologic/Lymphatic: Reports systems reviewed and no addt'l complaints, exceptas documented EXAM Physical Exam Const Vital Signs: 01/26/23 23:53 01/27/23 00:04 Temperature 97.6 F L Temperature Source Temporal Pulse Rate 73 Respiratory Rate 16 Respiratory Pattern Normal Blood Pressure 134/81 H Blood Pressure Mean 98 Pulse Ox 100 Positive well nourished and well developed General Appearance ED: well developed and NAD; Negative for cyanotic, diaphoretic or pallor HEENT Reports moist mucous membranes HEENT Narrative: Head is atraumatic normocephalic. Ears normal. Nares patent. Posterior pharynx normal. Eyes PERRL and EOMs intact bilaterally General Eye ED: Negative for pale conjunctiva or scleral icterus Neck no lymphadenopathy, supple and no JVD Chest Wall inspection of chest normal and palpation of chest normal Resp normal respiratory effort and clear to auscultation bilaterally Cardio regular rate, regular rhythm, S1 normal heart sound, S2 normal heart sound and no murmurs GI normal to inspection, nondistended, normoactive bowel sounds, non-tender, non-distended and no masses; Negative for hepatosplenomegaly Palpation: soft Back/Spine no CVA tenderness Extremity normal to inspection Extremity Narrative: There is no asymmetry, swelling, discoloration, leg vein distention, palpable cords or tenderness along the distribution of the deep venous system. Neuro oriented x3 and CN's II-XII intact bilaterally Sensorium / Orientation: alert Psych Mood & Affect: depressed Skin no rashes or lesions noted, no wounds and skin turgor normal General Skin Exam: Negative for jaundice or pallor MDM MDM MDM Narrative Medical decision making narrative: Patient is PERC negative. Patient's symptoms are not suggestive of anything. We will obtain basic metabolic panel to assess for significant hypokalemia potentially and would raise concern for premature ventricular beats. EKG was obtained per nurse protocol. EKG reveals a sinus rhythm rate of 69 with respiratory variance which is a normal variant. The EKG is normal. WI interval is under 54 ms. QRS duration is 80 ms. [place] is normal. Lab Data Labs: Laboratory Results - last 24 hr 01/27/23 01:05 Sodium 141 Potassium 3.4 L Chloride 109 H Carbon Dioxide 26.0 Anion Gap 6 BUN 10 Creatinine 0.97 Estim Creat Clear Calc 91.64 Est GFR (MDRD) Af Amer 83 Est GFR (MDRD) Non-Af 69 BUN/Creatinine Ratio 10.3 Glucose 66 L Calcium 8.6 Discharge Plan Triage Chief Complaint: Palpitations ED Provider: WeathersSam Dx/Rx/DC Orders Clinical Impression: Heart palpitations, Forearm pain Instructions: ED Palpitations Prescriptions: No Action propranolol 10 mg tablet 10 mg PO ONCE naproxen sodium [Aleve] 220 mg capsule 220 mg PO BID PRN (Reason: pain) ergocalciferol (vitamin D2) 1,250 mcg (50,000 unit) capsule 1,250 mcg PO QWEEK bupropion HCl 150 mg tablet extended release 24 hr 150 mg PO DAILY Patient Comments: TAKE 1 TABLET BY MOUTH IN THE MORNING Primary Care Provider: Sara Rosa Referrals: Sara Rosa, DRAINAGE ENGINEER-C [Primary Care Provider] - As Needed Disposition Disposition: Home, Self Care What to do if you have Problems For any increased pain, shortness of breath, bleeding, nausea or vomiting, chestpain, or any unexpected problems, contact your Primary Care Provider. Call [facility] ([phone]) or report to the closest Emergency Room. Call 911 if necessary. 01/27/23 0202 <Electronically signed by Sam Weathers MD> Cosigner Signature (if applicable): CC: Sara Rosa ~ Signed [facility] Work Phone: Evaluation noteNo assessment information available [facility] Work Phone: Evaluation note* Diagnosis Acute cough- Primary URI, acute Acute upper respiratory infections of unspecified site [facility] Diagnosis Onset Date Resolution Status Female genital lesion acute Possible exposure to STD non eactive [facility] Work Phone: Evaluation note* Diagnosis Onset Date Resolution Status Possible exposure to STD non eactive Abnormal uterine bleeding (AUB) acute Hot flashes acute Hair loss noneactive [facility] Work Phone: Evaluation note* Diagnosis HSV-2 (herpes simplex virus 2) infection- Primary Herpes simplex without mention of complication Hot flashes Symptomatic menopausal or female climacteric states [facility] Diagnosis Contact lens overwear of both eyes- Primary Punctate keratitis, bilateral [facility] Diagnosis Punctate keratitis, bilateral- Primary Dry eye syndrome of bilateral lacrimal glands Tear film insufficiency, unspecified Vitreous floaters of left eye Distortion of visual image of left eye Myopia, bilateral Myopia Regular astigmatism of both eyes Regular astigmatism [facility] Diagnosis Recurrent herpes simplex Herpes simplex without mention of complication [facility] Diagnosis Chronic headaches- Primary Headache Migraines Migraine, unspecified, without mention of intractable migraine without mention of status migrainosus Fatigue Other malaise and fatigue Emotional hypersensitivity Other specified episodic mood disorder Acute cough [facility] Diagnosis Chronic headaches- Primary Headache Migraines Migraine, unspecified, without mention of intractable migraine without mention of status migrainosus Fatigue Other malaise and fatigue Emotional hypersensitivity Other specified episodic mood disorder Palpitations- Primary Precordial pain [facility] Diagnosis Chronic headaches- Primary Headache Migraines Migraine, unspecified, without mention of intractable migraine without mention of status migrainosus Fatigue Other malaise and fatigue Emotional hypersensitivity Other specified episodic mood disorder Palpitations [facility] Diagnosis Chronic headaches- Primary Headache Migraines Migraine, unspecified, without mention of intractable migraine without mention of status migrainosus Fatigue Other malaise and fatigue Emotional hypersensitivity Other specified episodic mood disorder Palpitations [facility] Diagnosis Chronic headaches- Primary Headache Migraines Migraine, unspecified, without mention of intractable migraine without mention of status migrainosus Fatigue Other malaise and fatigue Emotional hypersensitivity Other specified episodic mood disorder Encounter for gynecological examination (general) (routine) without abnormal findings- Primary Screening for cervical cancer Screening for malignant neoplasm of the cervix Encounter for screening for human papillomavirus (HPV) Special screening examination for human papillomavirus (HPV) Encounter for screening mammogram for breast cancer Dense breast tissue [facility] Diagnosis Chronic headaches- Primary Headache Migraines Migraine, unspecified, without mention of intractable migraine without mention of status migrainosus Fatigue Other malaise and fatigue Emotional hypersensitivity Other specified episodic mood disorder Acute left-sided low back pain, unspecified whether sciatica present- Primary documented in this encounter [facility] for visit Narrative* Outpatient Procedure (Routine) - Closed Specialty Diagnoses / Procedures Referred By Contac t Referred To [facility] Diagnoses Palpitations Procedures ECHO ECHO TTHRC R-T 2D W/WOM-MODE COMPL SPEC&COLR D Omar Cruz MD [address], [address] [place] [address] Phone: tel: fax: [facility] [address] Referral ID Status Reason Start Date Expiration Date V isits Requested Visits Authorized [id number] Closed Auto-Generate d Referral 10/16/2024 07/11/2025 1 1 [facility] Chief Complaint and Reason for Visit Chief Complaint Dysmenorrhea, unspec ified MIGRAINE Chief Complaint Dysmenorrhea, unspec ified MIGRAINE PALPITATIONS Chief Complaint PALPIATIONS Chief Complaint PALPIATIONS urinary symptoms, possible STI Labial pain, ER follow up Reason for Visit Female genital lesio n Possible exposure to STD Chief Complaint PALPIATIONS urinary symptoms, possible STI Labial pain, ER follow up 1 wk fu, testing? Reason for Visit Possible exposure to STD Abnormal uterine bleeding (AUB) Hot flashes Hair loss Family History No Family History Records Found Relationship Condition Age at Onset Recorded Date/T bob mother Malignant neoplasm of cervix Unknown Disorder of parathyroid gland Unknown Hyperlipidemia Unknown father Cardiac disease Unknown Gout Unknown grandfather Disorder of lung Unknown Cardiac disease Unknown Advance Directives No Advanced Directives Records Found Advance Directive Response Recorded Date/ Time Living Will No May 29, 022 4:11pm Power of Dancing Master No May 29, 2022 4:11pm Advance Directive Response Recorded Date/ Time Living Will No January 27, 2023 12:04am Power of Dancing Master No January 27 12:04am Advance Directive Response Recorded Date/ Time Living Will No May 04 12:36am Power of Dancing Master No May 04, 2023 12:36am Advance Directive Response Recorded Date/ Time Living Will No May 03 11:36pm Power of Dancing Master No May 03, 2023 11:36pm Health Concerns Infection Onset Date Last Indicated Resolved Time COVID-19 Rule-Out 07/08/2022 07/08/2022 07/09/2022 5:31 AM EST Medications Administered Section Inactive Administered Medications - up to 3 most recent administrations Medication Order MAR Action Action Date Dose Rate Site PHENYLephrine 2.5 % 1 Drop (AK-DILATE, ANA-SYNEPHRINE) 1 Drop, BOTH EYES, ONCE, 1 dose, On Wed06/18/23 at 0900, FOR OPHTHALMIC USE ONLY PROTECT FROM LIGHT Given 06/18/2023 9:00 AM EST 1 Drop proparacaine 0.5 % 1 Drop (ALCAINE) 1 Drop, BOTH EYES, ONCE, 1 dose, On Wed06/18/23 at 0900, FOR THE EYE Given 06/18/2023 9:00 AM EST 1 Drop tropicamide 1 % 1 Drop (MYDRIACYL) 1 Drop, BOTH EYES, ONCE, 1 dose, On Wed06/18/23 at 0900, FOR THE EYE Given 06/18/2023 9:00 AM EST 1 Drop Summary Purpose Additional Source Comments Goals (unrecognized section and content) Goals may be documented in a n alternate sectionGoals may be documented in an alternate sectionGoals may be documented in an alternate sectionGoals may be documented in an alternate sectionGoals may be documented in an alternate sectionGoals may be documented in an alternate sectionGoals may be documented in an alternate section Source Comments (unrecognize d section and content) In the event this informatio n is protected by the Federal Confidentiality of Alcohol and Drug Abuse Patient Records regulations: The Federal rules restrict any use of the information to criminally investigate or prosecute any alcohol or drug abuse patient.[facility] the event this information is protected by the Federal Confidentiality of Alcohol and Drug Abuse Patient Records regulations: The Federal rules restrict any use of the information to criminally investigate or prosecute any alcohol or drug abuse patient.[facility] the event this information is protected by the Federal Confidentiality of Alcohol and Drug Abuse Patient Records regulations: The Federal rules restrict any use of the information to criminally investigate or prosecute any alcohol or drug abuse patient.[facility] the event this information is protected by the Federal Confidentiality of Alcohol and Drug Abuse Patient Records regulations: The Federal rules restrict any use of the information to criminally investigate or prosecute any alcohol or drug abuse patient.[facility] the event this information is protected by the Federal Confidentiality of Alcohol and Drug Abuse Patient Records regulations: The Federal rules restrict any use of the information to criminally investigate or prosecute any alcohol or drug abuse patient.[facility] the event this information is protected by the Federal Confidentiality of Alcohol and Drug Abuse Patient Records regulations: The Federal rules restrict any use of the information to criminally investigate or prosecute any alcohol or drug abuse patient.[facility] the event this information is protected by the Federal Confidentiality of Alcohol and Drug Abuse Patient Records regulations: The Federal rules restrict any use of the information to criminally investigate or prosecute any alcohol or drug abuse patient.[facility] the event this information is protected by the Federal Confidentiality of Alcohol and Drug Abuse Patient Records regulations: The Federal rules restrict any use of the information to criminally investigate or prosecute any alcohol or drug abuse patient.[facility] the event this information is protected by the Federal Confidentiality of Alcohol and Drug Abuse Patient Records regulations: The Federal rules restrict any use of the information to criminally investigate or prosecute any alcohol or drug abuse patient.[facility] the event this information is protected by the Federal Confidentiality of Alcohol and Drug Abuse Patient Records regulations: The Federal rules restrict any use of the information to criminally investigate or prosecute any alcohol or drug abuse patient.[facility] the event this information is protected by the Federal Confidentiality of Alcohol and Drug Abuse Patient Records regulations: The Federal rules restrict any use of the information to criminally investigate or prosecute any alcohol or drug abuse patient.[facility] the event this information is protected by the Federal Confidentiality of Alcohol and Drug Abuse Patient Records regulations: The Federal rules restrict any use of the information to criminally investigate or prosecute any alcohol or drug abuse patient.[facility] the event this information is protected by the Federal Confidentiality of Alcohol and Drug Abuse Patient Records regulations: The Federal rules restrict any use of the information to criminally investigate or prosecute any alcohol or drug abuse patient.[facility] HospitalIn the event this information is protected by the Federal Confidentiality of Alcohol and Drug Abuse Patient Records regulations: The Federal rules restrict any use of the information to criminally investigate or prosecute any alcohol or drug abuse patient.[facility] HospitalIn the event this information is protected by the Federal Confidentiality of Alcohol and Drug Abuse Patient Records regulations: The Federal rules restrict any use of the information to criminally investigate or prosecute any alcohol or drug abuse patient.[facility] the event this information is protected by the Federal Confidentiality of Alcohol and Drug Abuse Patient Records regulations: The Federal rules restrict any use of the information to criminally investigate or prosecute any alcohol or drug abuse patient.[facility] Hospital[facility] the event this information is protected by the Federal Confidentiality of Alcohol and Drug Abuse Patient Records regulations: The Federal rules restrict any use of the information to criminally investigate or prosecute any alcohol or drug abuse patient.[facility] HospitalIn the event this information is protected by the Federal Confidentiality of Alcohol and Drug Abuse Patient Records regulations: The Federal rules restrict any use of the information to criminally investigate or prosecute any alcohol or drug abuse patient.[facility] Reason for Visit (unrecogniz ed section and content) Reason Comments Dry Eye(s) Both Eyes Floaters Left Eye Specialty Diagnoses / Procedures Referred By Srini flanagan Referred To Contact [employer] [employer] Diagnoses new patient-coming from [facility] unsatisfied with her care there, she has had some positive and negative std tests but doesn't feel like she is getting proper help-wants second opinion Procedures consult,test,treat for std check Self Medical Terminologist [facility] [address] [place] [address] Referral ID Status Reason Start Date Expiration Date Visits Requested Visits Authorized [id number] Authorized Patient Cleared - Qualified [id number] 05/17/2023 08/15/2023 99 99 Reason Comments Conjunctivitis Evaluation Reason Comments Cough Cough, runny nose, c hest congestion, SOB and lightheaded x 5 days Reason Comments Results Specialty Diagnoses / Procedures Referred By Srini flanagan Referred To Contact Radiology / [facility] Diagnoses Acute bronchitis Outside Order Chest 2 Views Dx. 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 Robert Velasquez MD Family Provider Active [facility] Primary Care Provider A ctive Team Status: Inactive Member Role Status Dates [facility] Primary Care Provider A ctive JOAQUIN MAGUIRE , DRAINAGE ENGINEER-C Attending Provider, Referring Provider Active Team Status: Inactive Member Role Status Dates [facility] Primary Care Provider A ctive Dr. Alexis Nice DO Attending Provider, Emergency Pro vider Active Team Status: Inactive Member Role Status Dates [facility] Primary Care Provider A ctive Brandie Reeder DRAINAGE ENGINEER, DRAINAGE ENGINEER-C Attending Provider Active Team Status: Inactive Member Role Status Dates [facility] Primary Care Provider A ctive Brandie Reeder DRAINAGE ENGINEER, DRAINAGE ENGINEER-C Attending Provider, Referrin g Provider Active Team Status: Inactive Member Role Status Dates [facility] Primary C are Provider, Attending Provider, Referring Provider Active JOAQUIN MAGUIRE , DRAINAGE ENGINEER-C Other Provider Active Team Status: Active Member Role Status Dates Dr. Robert Velasquez MD Family Provider Active Sara Moe VSC, DRAINAGE ENGINEER-C Primary Care Provider Active Team Status: Inactive Member Role Status Dates Dr. Sam Weathers MD Emergency Provider Active Sara Moe VSC, DRAINAGE ENGINEER-C Primary Care Provider Active Team Status: Inactive Member Role Status Dates [facility] Primary Care Provider, Referring Provider Active Nikia Lal DRAINAGE ENGINEER, DRAINAGE ENGINEER-C Attending Provider Active Team Status: Inactive Member Role Status Dates Dr. Sam Weathers MD Attending Provider, Emergency Provi fox Active Sara Rosa VSC, DRAINAGE ENGINEER-C Primary Care Provider Active Team Status: Inactive Member Role Status Dates Dr. Corbin Sanchez DO Attending Provider, Emergency P rovifox Active [facility] Primary Care Provider A ctive Team Status: Inactive Member Role Status Dates [facility] Primary Care Provider A ctive Nikia Lal DRAINAGE ENGINEER, DRAINAGE ENGINEER-C Attending Provider, Referring Provider Active INFORMATION SOURCE (unrecogn ized section and content) DATE CREATED AUTHOR 12/10/2024 [facility] DATE CREATED AUTHOR AUTHOR'S ORGANIZ ATION 01/05/2025 [facility] DATE CREATED AUTHOR AUTHOR'S ORGANIZ ATION 03/19/2025 [facility] DATE CREATED AUTHOR AUTHOR'S ORGANIZ ATION 04/04/2025 [facility] FOR RECORDS PERTAINING TO PATIENTS WHO ARE OR HAVE BEEN ENROLLED IN A CHEMICAL DEPENDENCY/SUBSTANCEABUSE PROGRAM, SOME INFORMATION MAY BE OMITTED. This clinical summary was aggregated from multiple sources. Caution should be exercised in using it in the provision of clinical care. This summary normalizes information from multiple sources, and as a consequence, information in this document may materially change the coding, format and clinical context of patient data. In addition, data may be omitted in some cases. CLINICAL DECISIONS SHOULD BE BASED ON THE PRIMARY CLINICAL RECORDS. [facility] [email or web address] [facility]. provides no warranty or guarantee of the accuracy or completeness of information in this document.
--- NOTE | 2025-07-11 20:05 | EDS_ITS ---
HPI HPI - Female History of Present Illness Chief Complaint: Complaint Narrative Narrative: Chief complaint and HPI: 39-year-old female with past medical history of bipolar disorder, frequent UTIs presents for evaluation of dysuria and urinary frequency. Patient states she has a history of frequent UTIs. She has not followed with urology. She states her symptoms started this morning with dysuria, urinary frequency, and malodorous urine. She denies any fever, chills, abdominal pain, back pain, nausea, vomiting. States it feels like her previous UTIs. Review of systems: See HPI Medications: As listed on the chart Allergies: As listed on the chart PFSH: Per chart Vital signs: As listed on the chart. Reviewed. Physical exam: Gen: A&O x3, NAD Head: Normocephalic, atraumatic Eyes: No sclera icterus, conjunctiva clear ENT: Moist mucous membranes CV: RRR, no murmurs Resp: Lungs CTA BL, no w/r/c GI: Abd soft, non-distended, non-tender, no r/r/g : No CVA tenderness Skin: Warm, dry Psych: Cooperative, appropriate mood and affect PFSH PFSH Medical History Anxiety Loose, teeth Bipolar disorder Injury of back History of ulceration Smoker Asthma Shortness of breath on exertion Chest pain History of edema History of irregular heartbeat Abnormal uterine bleeding (AUB) Anemia Ovarian cyst Migraines Scoliosis Home Medications ?Medication ?Instructions ?Recorded ?Last Taken ?Type ergocalciferol (vitamin D2) 1,250 1,250 mcg PO QWEEK 0 08/19/21 Unknown History mcg (50,000 unit) capsule naproxen sodium 220 mg capsule 220 mg PO BID PRN pain 09/22/21 Unknown History (Aleve) propranolol 10 mg tablet 10 mg PO ONCE 09/22/21 Unkno wn History bupropion HCl 150 mg 24 hr tablet, 150 mg PO DAILY Unknown History extended release azithromycin 250 mg tablet See Rx Instructions PO .COM PLEX #6 12/23/23 Unknown Rx tabs benzonatate 200 mg capsule 200 mg PO TID PRN cough #30 caps 12/23/23 Unknown Rx prednisone 20 mg tablet 40 mg (2 x 20 mg) PO DAILY 5 days 12/23/23 Unknown Rx #10 tabs amoxicillin 875 mg-potassium 1 tab PO BID 7 days #14 t abs 07/11/25 Unknown Rx clavulanate 125 mg tablet Allergy/AdvReac Type Severity Reaction Status Date / Time cod liver oil (From Desitin) AdvReac Swelling Verified 07/11/25 17:32 morphine AdvReac Rash Verified 07/11/25 17:32 zinc oxide (From Desitin) AdvReac Swelling Verified 07/11/25 17:32 Family History Mother Cervical cancer Parathyroid abnormality Hyperlipidemia Father Heart disease Gout Grandfather Lung disease Heart disease Surgical History H/O dilation and curettage Social History household members: family current occupational status: employed current occupation: [employer] history of recent travel: Yes sexually active: No Smoking Status: Former smoker alcohol intake: current alcohol intake frequency: holidays/special occasions only substance use type: does not use what type of physical activity do you participate in: walking frequency: 5-6 times per week seatbelt use: always do you feel safe at home: Yes additional social history: EXAM Physical Exam Const Vital Signs: 07/11/25 17:32 07/11/25 18:30 07/11/25 18:31 Temperature 97.6 F L 98.5 F Temperature Source Temporal Oral Pulse Rate 89 79 78 Respiratory Rate 16 17 17 Blood Pressure 127/75 H 109/82 H 109/82 H Blood Pressure Mean 92 91 91 Pulse Ox 96 100 100 Oxygen Delivery Method Room Air Room Air 07/11/25 19:04 Temperature Temperature Source Pulse Rate 76 Respiratory Rate Blood Pressure 107/82 H Blood Pressure Mean 90 Pulse Ox 98 Oxygen Delivery Method MDM MDM MDM Narrative Medical decision making narrative: 39-year-old female with past medical history of bipolar disorder, frequent UTIs presents for evaluation of dysuria and urinary frequency. Patient states she has a history of frequent UTIs. She has not followed with urology. She states her symptoms started this morning with dysuria, urinary frequency, and malodorous urine. Patient denies any systemic symptoms. On presentation she has no acute distress. She is afebrile. UA was obtained in triage per protocol. Patient has a UTI. Urine culture sent. On chart review in 2022, patient grew out Enterococcus faecalis which is sensitive to ampicillin. I do want to cover her more broadly for gram-negative's given that she has nitrites and suspicion would be for E. coli. I spoke with our inpatient pharmacist who agrees with Augmentin. First dose given here. I do not think any laboratory workup is needed given patient has no systemic symptoms or pain. Patient in agreement. Patient is to follow-up with primary care physician and urology. Return precautions explained. She confirmed understand the plan. Patient able to discharge home. Impression: 1. UTI 2. History of recurrent urinary tract infections Lab Data Labs: Laboratory Results - last 24 hr 07/11/25 17:39 Urine Color Straw Urine Clarity Cloudy Urine pH 6.5 Ur Specific [place] 1.010 Urine Protein 15 H Urine Glucose (UA) Normal Urine Ketones Negative Urine Occult Blood 150 H Urine Nitrite Positive H Urine Bilirubin Negative Urine Urobilinogen Normal Ur Leukocyte Esterase 500 H Urine RBC 0-5 SEEN Urine WBC 10-25 SEEN Ur Squamous Epith Cells 0-5 SEEN Urine Bacteria 3+ Urine Mucus 0 SEEN Discharge Plan Triage Chief Complaint: Complaint ED Provider: Williams Sarabia Dx/Rx/DC Orders Clinical Impression: UTI (urinary tract infection) Instructions: Urinary Tract Infections in Women Prescriptions: New amoxicillin-pot clavulanate 875-125 mg tablet 1 tab PO BID 7 Days Qty: 14 0RF No Action propranolol 10 mg tablet 10 mg PO ONCE naproxen sodium [Aleve] 220 mg capsule 220 mg PO BID PRN (Reason: pain) ergocalciferol (vitamin D2) 1,250 mcg (50,000 unit) capsule 1,250 mcg PO QWEEK bupropion HCl 150 mg tablet extended release 24 hr 150 mg PO DAILY Patient Comments: TAKE 1 TABLET BY MOUTH IN THE MORNING azithromycin 250 mg tablet See Rx Instructions .ROUTE .COMPLEX Qty: 6 0RF Rx Instructions: For 250 mg dose pack: take 500 mg today (day 1), then 250 mg for 4 days (days 2-5) prednisone 20 mg tablet 40 mg PO DAILY 5 Days Qty: 10 0RF benzonatate 200 mg capsule 200 mg PO TID PRN (Reason: cough) Qty: 30 0RF Primary Care Provider: Care Physician,No Primary Referrals: Brenda Lunsford MD [Med Staff - Active Staff, Urology] - 3-5 Days Robert Velasquez MD [Med Staff - Active Staff, Family Practice] Activity Restrictions/Additional Instructions: You received your first dose of antibiotic here in the emergency department. Follow-up with your primary care physician. If you do not have a primary care physician follow with one listed above. Given your frequent UTIs, I recommend you following up with urology. Return back to ED symptoms change or worsen. Print Language: [place]anian Disposition Disposition: Home, Self Care
[2025-07-11 20:08] VITALS: BP 121/72; PULSE 80; RESP 17; TEMP 36.9; O2SAT 98
== END 2025-07-11 20:09 | disposition home or self-care (01) ==
PROVIDERS: Emergency Provider Surgery; Visit Provider Surgery
DX: N39.0 Urinary tract infection, site not specified (principal); F31.9 Bipolar disorder, unspecified; Z87.891 Personal history of nicotine dependence
CPT/HCPCS: 81001; 87077; 87086; 87088; 87186; 99282